=== PATIENT | male | born 1955 | race Caucasian/White ===

== ENCOUNTER 2019-05-26 20:08 | Inpatient (IN) | payer MEDICARE, OTHER ==
[~2019-05-26] VITALS: Ht 175.3 cm; Wt 90.7 kg
--- NOTE | 2019-05-26 20:29 | NUR ---
BIB [employer] C/O DEPRESSION, SI WITH PLAN TO OD BY TAKING 1 BOTTLE OF ASPIRIN. PT ALSO C/O BILATERAL KNEE PAIN 09/03. DENIES TRAUMA.PT UNABLE TO PROVIDE URINE SAMPLE AT THIS TIME. WILL F/U
[2019-05-26 20:34] LABS: BASOPHILS # (AUTO) 0.1 /CMM (0.0-0.2); BASOPHILS % (AUTO) 0.4 % (0.0-2.0); EOSINOPHILS % (AUTO) 0.1 % (0.0-6.0); HEMATOCRIT 44 % (39-51); HEMOGLOBIN 14.8 g/dL (13.5-17.5); LYMPHOCYTES # (AUTO) 1.8 /CMM (0.8-4.8); LYMPHOCYTES % (AUTO) 13.6 % (20.0-44.0); MEAN CORPUSCULAR HGB CONC 33 g/dl (31.0-36.0); MEAN CORPUSCULAR VOLUME 87 fL (80-96); MONOCYTES # (AUTO) 1.1 /CMM (0.1-1.30); MONOCYTES % (AUTO) 7.8 % (2.0-12.0); NEUTROPHILS # (AUTO) 10.6 /CMM (1.8-8.9); NEUTROPHILS % (AUTO) 78.1 % (43.0-81.0); PLATELET COUNT (AUTO) 316 /CMM (150-450); RED BLOOD CELL COUNT(AUTO) 5.08 MIL/uL (4.5-6.0); WHITE BLOOD COUNT (AUTO) 13.5 K/uL (4.3-11.0)
[2019-05-26 20:41] LABS: CALCIUM, SERUM 9.5 mg/dL (8.5-10.1); CARBON DIOXIDE 21 mmol/L (21-32); CHLORIDE 100 mmol/L (98-107); CREATININE 2.4 mg/dL (0.6-1.3); GLUCOSE 131 mg/dL (74-106); POTASSIUM 4.4 mmol/L (3.5-5.1); SODIUM SERUM 133 mmol/L (136-145); UREA NITROGEN, BLOOD 21 mg/dL (7-18)
[2019-05-26 20:48] LABS: ALANINE AMINOTRANSFERASE < 6 U/L (12-78); ALBUMIN 4.2 g/dL (3.4-5.0); ALCOHOL, BLOOD < 3 mg/dL (0-0); ALKALINE PHOSPHATASE 114 U/L (46-116); ASPARTATE AMINOTRANSFERASE 9 U/L (15-37); BILIRUBIN,DIRECT 0.2 mg/dL (0.0-0.2); BILIRUBIN,TOTAL 1.2 mg/dL (0.2-1.0); TOTAL PROTEIN, SERUM 7.8 g/dL (6.4-8.2)
[2019-05-26 20:49] LABS: ACETAMINOPHEN 0 ug/ml (10-30); SALICYLATE 0.6 mg/dL (2.8-20.0)
[2019-05-26 21:08] LABS: APPEARANCE,URINE Clear (CLEAR); BILIRUBIN,URINE Negative (NEGATIVE); BLOOD, URINE Negative Ery/uL (NEGATIVE); COLOR,URINE Yellow (YELLOW); KETONES,URINE Negative (NEGATIVE); LEUKOCYTE ESTERASE ,URINE Negative (NEGATIVE); NITRITE, URINE Negative (NEGATIVE); PH,URINE 7.5 (5.0-8.0); PROTEIN,URINE Negative (NEGATIVE); UGLUCOSE Negative (NEGATIVE); UROBILINOGEN,URINE 0.2 EU/dL (0.2)
--- NOTE | 2019-05-26 21:22 | NUR ---
PT REOPRTED HE'S NOT TAKING ANY MEDICATIONS AT HOME
--- NOTE | 2019-05-26 21:32 | NUR ---
REPORT GIVEN TO RICARDO AT GPS
--- NOTE | 2019-05-26 21:45 | NUR ---
PT WAS TRANSFERRED TO GPS IN STABLE CONDITION.
[2019-05-26] MEDS ORDERED: BLOOD SUGAR DIAGNOSTIC 1 EACH STRIP IN ONE (23:00)
[2019-05-26] MEDS ORDERED: ACETAMINOPHEN 325 MG TABLET PO PRN (23:00)
[2019-05-26] MEDS ORDERED: MAGNESIUM HYDROXIDE 30 ML UDC PO PRN (23:00)
[2019-05-26 23:03] VITALS: BP 103/71
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
[2019-05-27 06:07] LABS: BASOPHILS % (AUTO) 0.2 % (0.0-2.0); CALCIUM, SERUM 8.8 mg/dL (8.5-10.1); CREATININE 1.8 mg/dL (0.6-1.3); EOSINOPHILS % (AUTO) 0.6 % (0.0-6.0); HEMATOCRIT 41 % (39-51); HEMOGLOBIN 13.8 g/dL (13.5-17.5); LYMPHOCYTES # (AUTO) 1.7 /CMM (0.8-4.8); MEAN CORPUSCULAR HGB CONC 34 g/dl (31.0-36.0); MEAN CORPUSCULAR VOLUME 87 fL (80-96); MONOCYTES # (AUTO) 0.8 /CMM (0.1-1.30); MONOCYTES % (AUTO) 11.8 % (2.0-12.0); NEUTROPHILS # (AUTO) 4.6 /CMM (1.8-8.9); NEUTROPHILS % (AUTO) 63.4 % (43.0-81.0); PLATELET COUNT (AUTO) 234 /CMM (150-450); POTASSIUM 3.9 mmol/L (3.5-5.1); RED BLOOD CELL COUNT(AUTO) 4.69 MIL/uL (4.5-6.0); WHITE BLOOD COUNT (AUTO) 7.2 K/uL (4.3-11.0)
--- NOTE | 2019-05-27 07:30 | NUR ---
RN GPS NOTES PT AWAKE, ALERT AND ORIENTED, NO COMPLAINT OF PAIN, NOT IN DISTRESS, AMBULATES WITH A WALKER WITH STEADY GAIT, COOPERATIVE AND COMPLIANT WITH MEDS AND INTERVENTIONS, NEEDS ATTENDED.
[2019-05-27] MEDS ORDERED: TRAZ-182 PO (08:19)
[2019-05-27] MEDS ORDERED: GABA-532 PO (08:19)
[2019-05-27] MEDS ORDERED: PRAZ5CAP2 PO (08:19)
[2019-05-27] MEDS ORDERED: PANT40TA2 PO (08:19)
[2019-05-27] MEDS ORDERED: ASPI-1152 PO (08:19)
[2019-05-27] MEDS ORDERED: LISI-658 PO (08:19)
[2019-05-27] MEDS ORDERED: ESCI10TA PO (08:19)
[2019-05-27] MEDS ORDERED: QUET200T PO (08:19)
[2019-05-27] MEDS ORDERED: BENZ1TAB7 PO (08:19)
[2019-05-27] MEDS ORDERED: OLAN10TA3 PO (08:19)
[2019-05-27] MEDS: MAG HYDROX/AL HYDROX/SIMETH 30 ML UDC PO PRN ×3 (08:24→22:16)
--- NOTE | 2019-05-27 09:20 | NUR ---
WOUND CARE CONSULT: PT PRESENTS INDEPENDENT WITH BED MOBILITY AND CONTINENT. THICKENED TOENAILS AND PLANTAR FOOT CALLUS NOTED BUT NO WOUND CARE NEEDED AT THIS TIME. PT STATES HAD RECENT PODIATRY CARE. WILL SEE PRN. CURRENT SUNSHINE SCORE IS 21. Addendum: 05/27/19 at 0922 by ROSAMARIA ANTHONY WNDNU Amended: Links added.
[2019-05-27] MEDS: OLANZAPINE 2.5 MG TABLET PO SCH ×3 (11:36→17:17)
[2019-05-27] MEDS: LORAZEPAM 0.5 MG TABLET PO PRN ×2 (11:39→18:48)
[2019-05-27] MEDS: GABAPENTIN 100 MG CAPSULE PO SCH ×2 (12:36→17:17)
--- NOTE | 2019-05-27 12:46 | NUR ---
Initial Discharge Plan: Pt is currently homeless and does not have anyone to contact. Per pt, he would like to be placed in a facility. SW will work with the MD and the pt regarding appropriate discharge planning. SW will form a safe and proper discharge.
--- NOTE | 2019-05-27 14:47 | NUR ---
Individual Note: In lieu of group therapy due to COVID 19, SW spoke to the pt individually at bedside. Pt appeared to be confused and disorganized. Pt states that he has a difficult time processing loss. Pt stated that he has experienced a lot of loss and he appears to get depressed and suicidal when that happens. Pt stated that he is homeless and that is also one of his triggers. SW asked the pt to practice deep breathing and walking to assist with triggers.
[2019-05-27 16:00] VITALS: BP 125/83
--- NOTE | 2019-05-27 16:35 | NUR ---
RN GPS NOTES PT FOR TRANSFER TO [place] [address], BELONGINGS ACCOUNTED FOR, SKIN CHECK DONE, PT INFORMED, REPORT GIVEN TO BETH RN, TRANSPORTED PT WITH ALL BELONGINGS TO ROOM 204-1 VIA WHEELCHAIR, IN STABLE CONDITION.
--- NOTE | 2019-05-27 18:31 | NUR ---
RN GPS NOTES PT IN BED, RESTING, DENIES PAIN, NOT IN DISTRESS, COMPLIANT WITH MEDS AND INTERVENTIONS, TOLERATES CURRENT DIET, NO BEHAVIOR PROBLEM NOTED, NEEDS ATTENDED, PM MEDS GIVEN.
--- NOTE | 2019-05-27 18:31 | NUR ---
KINDLY DISREGARD ABOVE NOTE, IT IS FOR ANOTHER PATIENT.
--- NOTE | 2019-05-27 19:36 | NUR ---
GPS RN OPENING NOTE: RECEIVED PT. IN BED Addendum: 05/27/19 at 1947 by TAMMY ANNE RN GPS RN OPENING NOTE: RECEIVED PT. RESTING IN BED. A/O 2-3, CALM, COOPERATIVE, AMBULATORY W/ WALKER. DENIES SI/HI AT THIS TIME, NEEDS ATTENDED. BED IN LOCKED AND LOW POSITION. BED ALARM ON. WILL CONTINUE TO MONITOR FOR SAFETY, MOOD AND BEHAVIOR.
[2019-05-27 20:38] VITALS: BP 129/80
[2019-05-27] MEDS ORDERED: DIVALPROEX SODIUM 500 MG TABLET.DR PO SCH (22:00)
--- NOTE | 2019-05-27 22:17 | NUR ---
GPS RN NOTE: INDIGESTION PT. C/O OF INDIGESTION AND REQUESTED MAALOX. ADMINISTERED MAALOX SUSPENSION 30 ML PO PRN REQUESTED. WILL CONTINUE TO MONITOR FOR SAFETY AND BEHAVIOR
[2019-05-28 08:00] VITALS: BP 106/68
[2019-05-28] MEDS: OLANZAPINE 2.5 MG TABLET PO SCH ×3 (08:12→16:28)
[2019-05-28] MEDS: GABAPENTIN 100 MG CAPSULE PO SCH ×3 (08:12→16:28)
[2019-05-28] MEDS: PANTOPRAZOLE 40 MG TABLET.DR PO SCH (08:13)
[2019-05-28] MEDS: ASPIRIN EC 81 MG TABLET.DR PO SCH (08:15)
[2019-05-28] MEDS ORDERED: LISINOPRIL (20MG) 20 MG TABLET PO SCH (09:00)
--- NOTE | 2019-05-28 11:42 | NUR ---
Individual Intervention with MD and pt: SW and the pts MD, Dr. Edge, met with the pt at bedside. Pt was asked about his thoughts and if he was having any sexual thoughts. Pt stated that he has general sexual thoughts towards women and children but the pt stated that there are no specific individuals. Pt stated that he has been going to [employer] and he stated that he knows that if he was ever to act on his thoughts that he would go to the authorities.
[2019-05-28 16:00] VITALS: BP 122/78
[2019-05-28 20:00] VITALS: BP 109/66
[2019-05-28] MEDS: PRAZOSIN HCL 1 MG CAPSULE PO SCH (21:21)
[2019-05-28] MEDS ORDERED: DIVALPROEX SODIUM 250 MG TABLET.DR PO SCH (22:00)
[2019-05-28] MEDS: LORAZEPAM 0.5 MG TABLET PO PRN (23:05)
--- NOTE | 2019-05-28 23:07 | NUR ---
RN NOTES: ANXIETY PT. C/O FEELING ANXIOUS ,RESTLESS, ATIVAN 0.5 MG PO PRN GIVEN, PER PT. REQUEST, WILL CONTINUE TO MONITOR.
--- NOTE | 2019-05-28 23:45 | NUR ---
RN NOTES : COLLECT URINE SPECIMEN AND SEND OUT TO THE LAB.
[2019-05-28 23:46] LABS: APPEARANCE,URINE CLEAR (CLEAR); BILIRUBIN,URINE NEGATIVE (NEGATIVE); BLOOD, URINE NEGATIVE Ery/uL (NEGATIVE); COLOR,URINE YELLOW (YELLOW); KETONES,URINE NEGATIVE (NEGATIVE); LEUKOCYTE ESTERASE ,URINE NEGATIVE (NEGATIVE); NITRITE, URINE NEGATIVE (NEGATIVE); PH,URINE 7.5 (5.0-8.0); PROTEIN,URINE NEGATIVE (NEGATIVE); UGLUCOSE NEGATIVE (NEGATIVE); UROBILINOGEN,URINE 0.2 EU/dL (0.2)
[2019-05-28 23:52] LABS: CREATININE, URINE 63.4 MG/DL (30.0-125.0); URINE SODIUM, RANDOM 42 mmol/l (40-220)
[2019-05-28 23:55] LABS: URINE TOTAL PROTEIN < 6.0 mg/dL (0-11.9)
[2019-05-29 00:07] LABS: EOSINOPHIL,URINE None Seen
[2019-05-29] MEDS: TEMAZEPAM 7.5 MG CAPSULE PO PRN ×2 (02:02→22:21)
--- NOTE | 2019-05-29 02:02 | NUR ---
RN NOTES : INSOMNIA PT. C/O UNABLE TO SLEEP RESTORIL 7.5 MG PO PRN GIVEN PER PT. REQUEST , WILL CONTINUE TO MONITOR.
[2019-05-29 06:53] LABS: BASOPHILS % (AUTO) 0.4 % (0.0-2.0); EOSINOPHILS % (AUTO) 1.3 % (0.0-6.0); HEMATOCRIT 43 % (39-51); HEMOGLOBIN 13.9 g/dL (13.5-17.5); LYMPHOCYTES # (AUTO) 1.4 /CMM (0.8-4.8); LYMPHOCYTES % (AUTO) 25.8 % (20.0-44.0); MEAN CORPUSCULAR HGB CONC 33 g/dl (31.0-36.0); MEAN CORPUSCULAR VOLUME 89 fL (80-96); MONOCYTES # (AUTO) 0.4 /CMM (0.1-1.30); MONOCYTES % (AUTO) 6.9 % (2.0-12.0); NEUTROPHILS # (AUTO) 3.5 /CMM (1.8-8.9); NEUTROPHILS % (AUTO) 65.6 % (43.0-81.0); PLATELET COUNT (AUTO) 233 /CMM (150-450); RED BLOOD CELL COUNT(AUTO) 4.83 MIL/uL (4.5-6.0); WHITE BLOOD COUNT (AUTO) 5.4 K/uL (4.3-11.0)
[2019-05-29 07:16] LABS: BILIRUBIN,TOTAL 0.3 mg/dL (0.2-1.0); CALCIUM, SERUM 8.7 mg/dL (8.5-10.1); CREATININE 1.5 mg/dL (0.6-1.3); PHOSPHORUS 3.4 mg/dL (2.5-4.9); POTASSIUM 4.1 mmol/L (3.5-5.1); TOTAL PROTEIN, SERUM 6.4 g/dL (6.4-8.2)
[2019-05-29 08:00] VITALS: BP_SYST 134; BP_SYST 135; BP_DIAS 107; BP_DIAS 98
[2019-05-29] MEDS: OLANZAPINE 2.5 MG TABLET PO SCH ×3 (09:33→17:05)
[2019-05-29] MEDS: LORAZEPAM 0.5 MG TABLET PO PRN ×2 (09:33→17:06)
[2019-05-29] MEDS: GABAPENTIN 100 MG CAPSULE PO SCH ×3 (09:33→17:05)
--- NOTE | 2019-05-29 09:33 | NUR ---
RN NOTES ADMINISTERED ATIVAN 0.5 MG PO PRN FOR ANXIETY PER PATIENT REQUEST, V/S TAKEN BP- 134/08, P-85,, R-20. PATIENT DELUSIONAL, AMBULATORY SELF CARE USING WALKER. SAFETY PRECAUTION MAINTAINED ALL THE TIME.
[2019-05-29] MEDS: ASPIRIN EC 81 MG TABLET.DR PO SCH (09:34)
[2019-05-29] MEDS: PANTOPRAZOLE 40 MG TABLET.DR PO SCH (09:34)
[2019-05-29 16:00] VITALS: BP 137/90
--- NOTE | 2019-05-29 17:06 | NUR ---
rn notes administered Ativan 0.5 mg po prn for anxiety per patient request, v/s taken bp-137/90, p78.
[2019-05-29 20:01] VITALS: BP 137/86
[2019-05-29] MEDS: DIVALPROEX SODIUM 500 MG TABLET.DR PO SCH (21:06)
[2019-05-29] MEDS: PRAZOSIN HCL 1 MG CAPSULE PO SCH (21:06)
--- NOTE | 2019-05-29 21:24 | NUR ---
GPS-RN NOTE: RIGHT LOWER LEG PAIN PATIENT C/O PAIN ON RIGHT LOWER LEG ON A PAIN SCALE OF 3/10. ADMINISTERED ACETAMINOPHEN 650MG PO ORDERED. WILL CONTINUE TO MONITOR FOR THE EFFECTIVENESS OF MEDICATION.
--- NOTE | 2019-05-29 22:22 | NUR ---
GPS-RN NOTE: INSOMNIA PATIENT C/O INABILITY TO SLEEP. ADMINISTERED RESTORIL 7.5MG PO ORDERED. WILL CONTINUE TO MONITOR.
[2019-05-30] MEDS: LORAZEPAM 0.5 MG TABLET PO PRN (01:18)
--- NOTE | 2019-05-30 01:19 | NUR ---
GPS-RN NOTE: ANXIETY PATIENT C/O FEELING ANXIOUS, REQUESTING FOR ATIVAN. ADMINISTERED ATIVAN 0.5MG PO ORDERED. WILL CONTINUE TO MONITOR FOR PT'S SAFETY.
[2019-05-30 06:29] LABS: BASOPHILS % (AUTO) 0.4 % (0.0-2.0); EOSINOPHILS % (AUTO) 1.5 % (0.0-6.0); HEMATOCRIT 40 % (39-51); HEMOGLOBIN 13.6 g/dL (13.5-17.5); LYMPHOCYTES # (AUTO) 1.6 /CMM (0.8-4.8); LYMPHOCYTES % (AUTO) 33.1 % (20.0-44.0); MEAN CORPUSCULAR HGB CONC 34 g/dl (31.0-36.0); MEAN CORPUSCULAR VOLUME 88 fL (80-96); MONOCYTES # (AUTO) 0.4 /CMM (0.1-1.30); MONOCYTES % (AUTO) 7.9 % (2.0-12.0); NEUTROPHILS # (AUTO) 2.8 /CMM (1.8-8.9); NEUTROPHILS % (AUTO) 57.1 % (43.0-81.0); PLATELET COUNT (AUTO) 228 /CMM (150-450); RED BLOOD CELL COUNT(AUTO) 4.59 MIL/uL (4.5-6.0); WHITE BLOOD COUNT (AUTO) 4.9 K/uL (4.3-11.0)
[2019-05-30 06:37] LABS: ALBUMIN 3.1 g/dL (3.4-5.0); BILIRUBIN,TOTAL 0.2 mg/dL (0.2-1.0); CALCIUM, SERUM 8.7 mg/dL (8.5-10.1); CREATININE 1.5 mg/dL (0.6-1.3); POTASSIUM 3.8 mmol/L (3.5-5.1); TOTAL PROTEIN, SERUM 6.4 g/dL (6.4-8.2)
[2019-05-30 08:00] VITALS: BP 139/74
[2019-05-30] MEDS: OLANZAPINE 2.5 MG TABLET PO SCH ×3 (08:05→16:17)
[2019-05-30] MEDS: ASPIRIN EC 81 MG TABLET.DR PO SCH (08:05)
[2019-05-30] MEDS: PANTOPRAZOLE 40 MG TABLET.DR PO SCH (08:06)
[2019-05-30] MEDS: GABAPENTIN 100 MG CAPSULE PO SCH ×3 (08:06→16:17)
[2019-05-30 09:06] LABS: PTH, INTACT 25 pg/mL (15-65)
[2019-05-30 16:00] VITALS: BP 141/94
[2019-05-30 20:19] VITALS: BP 146/85
[2019-05-30] MEDS: DIVALPROEX SODIUM 500 MG TABLET.DR PO SCH (21:05)
[2019-05-30] MEDS: PRAZOSIN HCL 1 MG CAPSULE PO SCH (21:05)
[2019-05-31] MEDS: MAG HYDROX/AL HYDROX/SIMETH 30 ML UDC PO PRN (01:30)
--- NOTE | 2019-05-31 01:31 | NUR ---
GPS RN NOTE: INDIGESTION PT. C/O OF INDIGESTION AND REQUESTED MAALOX. ADMINISTERED MAALOX SUSP 30 ML PO PRN ORDERED. WILL CONTINUE TO MONITOR FOR SAFETY AND BEHAVIOR
[2019-05-31] MEDS: PANTOPRAZOLE 40 MG TABLET.DR PO SCH (08:11)
[2019-05-31] MEDS: ASPIRIN EC 81 MG TABLET.DR PO SCH (08:40)
[2019-05-31] MEDS: OLANZAPINE 2.5 MG TABLET PO SCH ×3 (08:40→16:48)
[2019-05-31] MEDS: GABAPENTIN 100 MG CAPSULE PO SCH ×3 (08:40→16:48)
[2019-05-31] MEDS: LORAZEPAM 1 MG TABLET PO PRN (16:23)
--- NOTE | 2019-05-31 16:25 | NUR ---
RN NOTE: PT WITH INCREASING AGITATION AND ANXIETY. PT POSTURING AND VERBALLY THREATENING STAFF. BELIEVES STAFF ARE TALKING ABOUT HIM IN [facility]. PT MEDICATED WITH PO ATIVAN.
[2019-05-31 20:00] VITALS: BP 123/80
[2019-05-31] MEDS: DIVALPROEX SODIUM 500 MG TABLET.DR PO SCH (21:16)
[2019-05-31] MEDS: PRAZOSIN HCL 1 MG CAPSULE PO SCH (21:16)
--- NOTE | 2019-05-31 21:30 | NUR ---
RN NOTES: PT. REFUSED WEEKLY SKIN REASSESSMENT AND PHOTO TO BE TAKEN , RISKS AND BENEFITS EXPLINED , BUT PT. STILL REFUSED , PER PT. I DONT WATS TO CHECK , MY SKIN IS FINE, WILL CONTINUITY WITH CARE.
[2019-05-31] MEDS: TEMAZEPAM 7.5 MG CAPSULE PO PRN (23:46)
--- NOTE | 2019-05-31 23:48 | NUR ---
RN NOTES : INSOMNIA PT. C/O UNABLE TO SLEEP PRN RESTORIL 7.5 MG PO ,GIVEN PER PT. REQUEST , WILL CONTINUE TO MONITOR.
[2019-06-01] MEDS: MAG HYDROX/AL HYDROX/SIMETH 30 ML UDC PO PRN (02:03)
[2019-06-01] MEDS: PANTOPRAZOLE 40 MG TABLET.DR PO SCH (07:30)
[2019-06-01 08:09] LABS: *SPE A/G RATIO 1.1 (0.7-1.7); *SPE ALBUMIN 3.1 g/dL (2.9-4.4); *SPE ALPHA-1-GLOBULIN 0.2 g/dL (0.0-0.4); *SPE ALPHA-2-GLOBULIN 0.8 g/dL (0.4-1.0); *SPE GLOBULIN, TOTAL 2.8 g/dL (2.2-3.9); *SPE M-SPIKE Not Observed g/dL (Not Observed); *SPEGAMMA GLOBULIN 0.8 g/dL (0.4-1.8)
[2019-06-01] MEDS: ASPIRIN EC 81 MG TABLET.DR PO SCH (08:41)
[2019-06-01] MEDS: OLANZAPINE 2.5 MG TABLET PO SCH ×2 (08:41→13:22)
[2019-06-01] MEDS: GABAPENTIN 100 MG CAPSULE PO SCH ×3 (08:41→17:13)
[2019-06-01 10:39] VITALS: BP 149/97
--- NOTE | 2019-06-01 12:13 | NUR ---
SNF Referral: HERB faxed a referral to [facility] with attn to Admissions to fax number: [phone].
--- NOTE | 2019-06-01 16:02 | NUR ---
Individual Note: In lieu of group therapy due to COVID 19, SW met with the pt at bedside to discuss his discharge plan individually. Pt was informed that the plan is going to be to discharge the pt to a nursing facility. Pt stated that he has concerns and stated, "The devil has been inside of me and has been steering me away from the [facility]. You all just want to know everything about me." SW stated that the goal is to place the pt in a safe discharge location and the pt agreed and thanked the SW.
[2019-06-01 16:31] VITALS: BP 123/91
[2019-06-01] MEDS: OLANZAPINE 10 MG TABLET PO SCH (20:28)
[2019-06-01 21:01] VITALS: BP 123/78
[2019-06-01] MEDS: PRAZOSIN HCL 1 MG CAPSULE PO SCH (21:49)
[2019-06-01] MEDS ORDERED: DIVALPROEX SODIUM 500 MG TABLET.DR PO SCH (22:00)
[2019-06-02 07:27] LABS: BASOPHILS % (AUTO) 0.2 % (0.0-2.0); EOSINOPHILS % (AUTO) 1.1 % (0.0-6.0); HEMATOCRIT 43 % (39-51); HEMOGLOBIN 14.3 g/dL (13.5-17.5); LYMPHOCYTES # (AUTO) 1.8 /CMM (0.8-4.8); LYMPHOCYTES % (AUTO) 28.3 % (20.0-44.0); MEAN CORPUSCULAR HGB CONC 33 g/dl (31.0-36.0); MEAN CORPUSCULAR VOLUME 88 fL (80-96); MONOCYTES # (AUTO) 0.5 /CMM (0.1-1.30); MONOCYTES % (AUTO) 7.3 % (2.0-12.0); NEUTROPHILS # (AUTO) 4.1 /CMM (1.8-8.9); NEUTROPHILS % (AUTO) 63.1 % (43.0-81.0); PLATELET COUNT (AUTO) 219 /CMM (150-450); RED BLOOD CELL COUNT(AUTO) 4.93 MIL/uL (4.5-6.0); WHITE BLOOD COUNT (AUTO) 6.5 K/uL (4.3-11.0)
[2019-06-02 07:42] LABS: ALBUMIN 3.1 g/dL (3.4-5.0); BILIRUBIN,TOTAL 0.4 mg/dL (0.2-1.0); CALCIUM, SERUM 8.8 mg/dL (8.5-10.1); CREATININE 1.4 mg/dL (0.6-1.3); POTASSIUM 4.1 mmol/L (3.5-5.1); TOTAL PROTEIN, SERUM 6.6 g/dL (6.4-8.2)
[2019-06-02] MEDS: PANTOPRAZOLE 40 MG TABLET.DR PO SCH (08:37)
[2019-06-02] MEDS: OLANZAPINE 2.5 MG TABLET PO SCH ×2 (08:37→12:36)
[2019-06-02] MEDS: GABAPENTIN 100 MG CAPSULE PO SCH ×3 (08:37→16:54)
[2019-06-02] MEDS: ASPIRIN EC 81 MG TABLET.DR PO SCH (08:38)
[2019-06-02 09:30] VITALS: BP 119/71
--- NOTE | 2019-06-02 11:41 | NUR ---
SNF Contact: Tamra ([phone]), admissions clerk from [facility], contacted the SW and stated that the pt was not accepted to their facility because he is not appropriate for their facility.
--- NOTE | 2019-06-02 11:42 | NUR ---
SNF Referral: HERB faxed a referral to [facility] with attn to Ed and GIANFRANCO to the fax number: [phone].
--- NOTE | 2019-06-02 13:54 | NUR ---
Individual Note: In lieu of group therapy due to COVID 19, HERB met with the pt at bedside to discuss his discharge plan individually. HERB informed the pt that he was not accepted to a facility and that she will attempt to find alternatives. He stated that as long as the place is safe then he is okay.
[2019-06-02 15:59] VITALS: BP 108/77
[2019-06-02] MEDS: LORAZEPAM 1 MG TABLET PO PRN (19:34)
[2019-06-02 20:00] VITALS: BP 145/69
[2019-06-02] MEDS: OLANZAPINE 10 MG TABLET PO SCH (20:23)
[2019-06-02] MEDS: PRAZOSIN HCL 1 MG CAPSULE PO SCH (21:22)
[2019-06-02] MEDS ORDERED: DIVALPROEX SODIUM 500 MG TABLET.DR PO SCH (22:00)
[2019-06-03] MEDS: TEMAZEPAM 7.5 MG CAPSULE PO PRN (00:10)
[2019-06-03] MEDS: PANTOPRAZOLE 40 MG TABLET.DR PO SCH (07:27)
[2019-06-03] MEDS: OLANZAPINE 2.5 MG TABLET PO SCH ×2 (07:27→12:41)
[2019-06-03 08:00] VITALS: BP 141/95
[2019-06-03] MEDS: ASPIRIN EC 81 MG TABLET.DR PO SCH (08:49)
[2019-06-03] MEDS: GABAPENTIN 100 MG CAPSULE PO SCH ×3 (08:49→17:00)
--- NOTE | 2019-06-03 09:00 | NUR ---
RN NOTE- RECEIVED PT IN HIS ROOM, RESTING IN BED COMFORTABLY, A&OX2-3, CALM, COOPERATIVE, PLEASANT, GUARDED, ISOLATIVE, FLAT AFFECT, DEPRESSED MOOD, KEEPS TO SELF, MED COMPLIANT, DENIES SI/HI/AVH AT THIS TIME. NO S/S OF ANY DISTRESS NOTED. NO C/O PAIN OR ANY DISCOMFORT. FALL PRECAUTIONS IMPLEMENTED. ALL NEEDS ATTENDED AND ANTICIPATED. WILL CONTINUE TO MONITOR Q15 MINS FOR SAFETY AND BEHAVIOR.
--- NOTE | 2019-06-03 10:21 | NUR ---
SNF Referral: HERB faxed a referral to [facility] with attn to [place] to the fax number: [phone].
--- NOTE | 2019-06-03 10:25 | NUR ---
SNF Contact: Cristel ([phone]) community health education coordinator from [facility] contacted the SW and asked for additional information. HERB faxed over additional notes to the fax number: [phone].
--- NOTE | 2019-06-03 14:07 | NUR ---
GPS/RN-NOTES RECEIVED T.O DISCHARGE ORDER FROM DR. KNIGHT COVERING FOR DR. MIN TO DISCONTINUE HOLD AND CONTINUE ALL MEDICATIONS. NOTED AND CARRIED OUT.
--- NOTE | 2019-06-03 14:41 | NUR ---
Discharge Note: Pt was discharged to [facility] ([facility] located at [address] [place] [address]; ([phone]). Pt was transported via [facility] (Trip #[id number]) at 5PM. Pt will be in Rm 34C. Pt does not have family to contact. Upon discharge, the pt appeared to be in a dysphoric mood and presented with a distressed affect. Pt appeared to be alert and oriented x4 (time, place, self and situation). Pt appeared to be ambulatory with a steady gait. Pt denied both suicidal and homicidal ideation as well as auditory and visual hallucinations. Pt was provided with homeless resources such as shelters, food lerma, hot meals, showers, smoking cessation referrals, mental and physical health clinics and substance abuse referrals. Pt signed the homeless waiver. Pt will be under the care of her psychiatrist, Dr. More, located at [address], [place] [address]; and oil well service operator helper, Dr. Gray, located at [address], [place] [address]; .
--- NOTE | 2019-06-03 17:10 | NUR ---
FINISHING RANGE OPERATOR NOTE- PT D/C TO [facility] VIA GURNEY AND AMBULANCE . DC INSTRUCTIONS REVIEWED W PT AND AMBULANCE STAFF, VERBALIZED UNDERSTANDING. PT ALERT ORIENTED CALM DIRECTABLE. VS STABLE. 141/90, HR-88, RR-18, T-98.0, SATURATION 98% RA. DENIES SI HI AH VH AT PRESENT. VALUABLES RETURNED TO PT AND SIGNED FOR. ID [id number] REMOVED. PT REFUSED SKI CHECK AND PHOTOGRAPHS. ESCORTED OFF UNIT BY STAFF Addendum: 06/03/19 at 1721 by JOLYNN OCAMPO RN RN NOTE- 1700 DOSE NEURONTIN NOT GIVEN . PT DC.
== END 2019-06-03 17:10 | DRG 885 ==
LOC: ER 20:14 → GPS 21:22
PROVIDERS: ADMIT Psychiatry & Neurology Psychosomatic Medicine; ATTEND Internal Medicine
DX: F25.0 Schizoaffective disorder, bipolar type (principal); N17.0 Acute kidney failure with tubular necrosis; E44.1 Mild protein-calorie malnutrition; R45.851 Suicidal ideations; F12.90 Cannabis use, unspecified, uncomplicated; E11.9 Type 2 diabetes mellitus without complications; F31.9 Bipolar disorder, unspecified; I10 Essential (primary) hypertension; F43.10 Post-traumatic stress disorder, unspecified; G62.9 Polyneuropathy, unspecified; N40.0 Benign prostatic hyperplasia without lower urinary tract symptoms; Z91.5 Personal history of self-harm; R53.1 Weakness; F42.9 Obsessive-compulsive disorder, unspecified; F19.90 Other psychoactive substance use, unspecified, uncomplicated; Z68.29 Body mass index [BMI] 29.0-29.9, adult; Z59.0 Homelessness
CPT/HCPCS: 36415; 70450-TC; 76770-TC; 80048-TC; 80053-TC; 80061-TC; 80076-TC; 80164-TC; 80305; 81000-TC; 82550-TC; 82570-TC; 82962-TC; 83735-TC; 83970; 84100-TC; 84155; 84155-TC; 84165; 84300-TC; 85025-TC; 87081-TC; G0480

== ENCOUNTER 2022-01-27 17:43 | Inpatient (IN) | payer MEDICARE, OTHER ==
[~2022-01-27] VITALS: Ht 180.3 cm; Wt 72.6 kg
[~2022-01-27 17:43] MED LIST: ASPI-1420 PO; GABA-532 PO; LISI-658 PO; PANT40TA2 PO; PRAZ5CAP2 PO
--- NOTE | 2022-01-27 19:15 | NUR ---
PATIENT BIB CRISIS TEAM FOR SUICIDAL IDEATION. ON 5150 HOLD AT 1515. PATIENT IS A/O X 4, RR EVEN AND UNLABORED NO SOB NOTED. PATIENT TAKEN TO ER BED 15, PLACED IN HOPSITAL GOWN, BELONGINGS TAKEN. SITTER AT BEDSIDE. VSS. PATIENT IS AFEBRILE.
[2022-01-27 19:39] LABS: BILIRUBIN,URINE NEGATIVE (NEGATIVE); COLOR,URINE YELLOW (YELLOW); LEUKOCYTE ESTERASE ,URINE NEGATIVE (NEGATIVE); NITRITE, URINE NEGATIVE (NEGATIVE); PROTEIN,URINE NEGATIVE (NEGATIVE); UGLUCOSE NEGATIVE (NEGATIVE); UROBILINOGEN,URINE 0.2 EU/dL (0.2)
--- NOTE | 2022-01-27 19:51 | NUR ---
CHEMICAL LABORATORY TESTER AT PT'S BEDSIDE. COVID ANTIGEN SWAB COLLECTED AND SENT TO LAB
[2022-01-27 20:07] LABS: BASOPHILS % (AUTO) 0.4 % (0.0-2.0); EOSINOPHILS % (AUTO) 1.7 % (0.0-6.0); HEMATOCRIT 43 % (39-51); HEMOGLOBIN 14.7 g/dL (13.5-17.5); LYMPHOCYTES # (AUTO) 1.8 K/uL (0.8-4.8); MEAN CORPUSCULAR HGB CONC 34 g/dl (31.0-36.0); MEAN CORPUSCULAR VOLUME 90 fL (80-96); MONOCYTES # (AUTO) 0.5 K/uL (0.1-1.30); MONOCYTES % (AUTO) 8.8 % (2.0-12.0); NEUTROPHILS # (AUTO) 2.9 K/uL (1.8-8.9); NEUTROPHILS % (AUTO) 55.1 % (43.0-81.0); PLATELET COUNT (AUTO) 232 K/uL (150-450); RED BLOOD CELL COUNT(AUTO) 4.79 MIL/uL (4.5-6.0); WHITE BLOOD COUNT (AUTO) 5.3 K/uL (4.3-11.0)
[2022-01-27 20:17] LABS: CALCIUM, SERUM 9.1 mg/dL (8.5-10.1); CARBON DIOXIDE 26 mmol/L (21-32); CHLORIDE 104 mmol/L (98-107); CREATININE 1.5 mg/dL (0.6-1.3); GLUCOSE 79 mg/dL (74-106); POTASSIUM 3.4 mmol/L (3.5-5.1); SODIUM SERUM 138 mmol/L (136-145); UREA NITROGEN, BLOOD 21 mg/dL (7-18)
[2022-01-27 20:22] LABS: ALANINE AMINOTRANSFERASE 20 U/L (12-78); ALBUMIN 4.1 g/dL (3.4-5.0); ALCOHOL, BLOOD < 3 mg/dL (0-0); ALKALINE PHOSPHATASE 116 U/L (46-116); ASPARTATE AMINOTRANSFERASE 12 U/L (15-37); BILIRUBIN,DIRECT 0.2 mg/dL (0.0-0.2); BILIRUBIN,TOTAL 0.6 mg/dL (0.2-1.0); TOTAL PROTEIN, SERUM 7.6 g/dL (6.4-8.2)
[2022-01-27 20:28] LABS: ACETAMINOPHEN < 10 ug/ml (10-30)
--- NOTE | 2022-01-27 20:44 | NUR ---
GPS ROOM 215
--- NOTE | 2022-01-27 21:00 | NUR ---
REPORT GIVEN TO MARCIA VALDEZ
[2022-01-27 21:45] VITALS: BP 123/90
--- NOTE | 2022-01-27 21:45 | NUR ---
GPS ADMISSION NOTE, RECEIVED PATIENT FROM [facility] PATIENT ARRIVED ON THIS UNIT AT 2145 VIA STRETCHER WITH 1 MEMORY CARE PROGRAM RESIDENT ESCORT. PATIENT ADMITTED ON A 5150 HOLD FOR DTS. PER HOLD PATIENT WAS VERBALIZING SUICIDAL IDEATIONS. PATIENT STATED, " PLEASE HELP ME, THE MOLESTER IN MY HEAD IS TELLING ME TO MOLEST KIDS OR TO KILL MYSELF. I'D RATHER THAN MOLEST KIDS. I WILL KILL MYSELF TODAY IF I DON'T GET THE HELP I NEED. I'M GOING TO RUN INTO TRAFFIC ". PATIENT WAS UNABLE TO CONTRACT FOR SAFETY AT THAT TIME. THE 5150 WAS REVIEWED AND THE DOCUMENTATION IN THE 5150 HOLD APPEARS TO REFLECT THE PRESENTATION OF THE PATIENT. UPON FACE TO FACE ASSESSMENT PATIENT IS NOTED TO BEING HYPERVERBAL, DISHEVELED, DISORGANIZED, DEPRESSED, COOPERATIVE, HAVING VISUAL HALLUCINATIONS, AND NEEDS REDIRECTION. PATIENT IS CURRENTLY LYING IN BED AWAKE, HAS NO S/S OR COMPLAINTS OF PAIN. PATIENT IS DISPLAYING NO S/S OF APPARENT DISTRESS. PATIENT BREATHING IS UNLABORED WITH EQUAL RISE AND FALL OF THE CHEST. PATIENT IS ALERT AND ORIENTATED X 3 ON ROOM AIR. PATIENT ASSISTED WITH TURING AND REPOSITIONING Q2HR AND PRN FOR COMFORT AND CIRCULATION. PATIENT HAS NO NEEDS AT THIS TIME. PATIENT DENIES SUICIDE IDEATIONS AND HOMICIDAL IDEATIONS AT THIS TIME. PATIENT REFUSED TO SIGNS ANY PAPER WORK. PATIENT ADVISED OF HIS HOLD AND PATIENT RIGHTS BOOKLET GIVEN. PATIENT IS UNDER THE PSYCHIATRIC CARE OF DR. STAFFORD AND THE MEDICAL CARE OF DR ISLAS. PATIENT BELONGINGS WERE INVENTORIED AND CHECKED FOR CONTRABAND. ALL CONTRABAND REMOVED AND STORED IN PATIENT HALLWAY LOCKER. PATIENT ADVANCED DIRECTIVES PREFERENCE, IMMUNIZATIONS QUESTIONER, NECESSARY PAPERWORK COMPLETED. PATIENT SKIN ASSESSMENT COMPLETED. PATIENT ORIENTATED TO ROOM, FLOOR, AND STAFF WITH ALL QUESTIONS ANSWERED. PATIENT EDUCATED ON THE USE OF THE CALL LIGHT. PATIENT BED SIDE RAILS ARE UP X 2 FOR SAFETY. PATIENT BED IS LOCKED, LOW AND I WILL CONTINUE TO MONITOR THIS PATIENT Q 15 MIN WITH THE HELP OF STAFF TO MAINTAIN SAFETY.
[2022-01-27] MEDS ORDERED: ACETAMINOPHEN 325 MG TABLET PO PRN (22:30)
[2022-01-27] MEDS ORDERED: MAGNESIUM HYDROXIDE 30 ML UDC PO PRN (22:30)
[2022-01-27] MEDS ORDERED: DOCU-141 PO (22:33)
[2022-01-27] MEDS ORDERED: ATOR20TA PO (22:34)
[2022-01-27] MEDS ORDERED: LACT10SO3 PO (22:36)
[2022-01-27] MEDS ORDERED: GEMF600T PO (22:37)
[2022-01-27] MEDS ORDERED: AMLO5TAB4 PO (22:38)
[2022-01-27] MEDS ORDERED: RISP1TAB7 PO (22:39)
[2022-01-27] MEDS ORDERED: QUET200T PO (22:40)
[2022-01-27] MEDS ORDERED: BUPR100T6 PO (22:41)
[2022-01-27] MEDS ORDERED: HALO10TA13 PO (22:42)
[2022-01-27] MEDS ORDERED: OMEG1CAP PO (22:43)
[2022-01-27] MEDS ORDERED: BLOOD SUGAR DIAGNOSTIC 1 EACH STRIP IN ONE (23:00)
[2022-01-27] MEDS: TEMAZEPAM 7.5 MG CAPSULE PO PRN (23:03)
--- NOTE | 2022-01-27 23:03 | NUR ---
GPS RN NOTE, PATIENT HAS A COMPLAINT OF NOT BEING ABLE TO SLEEP AND IS REQUESTING RESTORIL AT THIS TIME. PATIENT VITAL SIGNS ARE STABLE. GAVE RESTORIL 7.5MG PO HS PRN ORDERED. WILL REASSESS FOR INSOMNIA AND I WILL CONTINUE TO MONITOR THIS PATIENT WITH THE HELP OF STAFF.
[2022-01-27] MEDS ORDERED: POTASSIUM CHLORIDE 20 MEQ TAB.PRT.SR PO ONE (23:45)
--- NOTE | 2022-01-27 23:45 | NUR ---
GPS RN NOTE, PATIENT POTASSIUM LEVEL IS 3.4 AND PATIENT NEEDS A MEDICATION RECONCILIATION. PAGED [facility] AND INFORMED ALLISON ISLAS NP OF MY FINDINGS. ALLISON ISLAS NP ORDERED K-DUR 20MEQ PO ONCE AND STATED TO ENDORSE TO A.M. SHIFT NURSE TO ASK ROUNDING MEDICAL DOCTOR TO HAVE PATIENT'S MEDICATIONS RECONCILED. ALL ORDERS NOTED AND CARRIED OUT. WILL ENDORSE TO A.M. SHIFT NURSE THAT PATIENT MEDICATIONS NEED TO RECONCILED. GAVE K-DUR 20MEQ PO ONCE ORDERED. WILL CONTINUE TO MONITOR THIS PATIENT WITH THE HELP OF STAFF.
[2022-01-28 08:00] VITALS: BP 113/74
[2022-01-28] MEDS ORDERED: risperiDONE 1 MG TABLET PO SCH (09:30)
[2022-01-28] MEDS: QUETIAPINE FUMARATE 100 MG TABLET PO SCH ×2 (10:26→16:50)
[2022-01-28] MEDS: risperiDONE 1 MG TABLET PO SCH ×2 (11:16→16:50)
[2022-01-28] MEDS: buPROPion SR 100 MG TABLET.ER PO SCH ×2 (12:11→21:31)
--- NOTE | 2022-01-28 15:36 | NUR ---
RN-CO: NOTIFIED Wendy ISLAS NP TO RECONCILE HOME MEDS.
--- NOTE | 2022-01-28 15:43 | NUR ---
RN-CO: DR WHITE WAS REQUESTED TO RECONCILE HOME MEDS. " I WILL DO IT LATER."
[2022-01-28 16:00] VITALS: BP 111/77
--- NOTE | 2022-01-28 18:28 | NUR ---
NURSE NOTE: PT MED COMPLIANT THROUGHOUT SHIFT. PER PT STILL HEARING VOICES, BUT NOT BAD. "ABLE TO SUBSIDE BY THINKING OF GOD." PT IN STABLE COND. WILL CONT PLAN OF CARE.
[2022-01-28 20:37] VITALS: BP 103/66
[2022-01-28] MEDS ORDERED: MIRTAZAPINE 15 MG TABLET PO SCH (22:00)
[2022-01-29 07:30] LABS: BASOPHILS % (AUTO) 0.4 % (0.0-2.0); EOSINOPHILS % (AUTO) 2.5 % (0.0-6.0); HEMATOCRIT 41 % (39-51); LYMPHOCYTES # (AUTO) 1.2 K/uL (0.8-4.8); LYMPHOCYTES % (AUTO) 28.8 % (20.0-44.0); MEAN CORPUSCULAR HGB CONC 34 g/dl (31.0-36.0); MEAN CORPUSCULAR VOLUME 91 fL (80-96); MONOCYTES # (AUTO) 0.4 K/uL (0.1-1.30); NEUTROPHILS # (AUTO) 2.6 K/uL (1.8-8.9); NEUTROPHILS % (AUTO) 59.3 % (43.0-81.0); PLATELET COUNT (AUTO) 213 K/uL (150-450); RED BLOOD CELL COUNT(AUTO) 4.53 MIL/uL (4.5-6.0); WHITE BLOOD COUNT (AUTO) 4.3 K/uL (4.3-11.0)
[2022-01-29 07:42] LABS: CALCIUM, SERUM 8.8 mg/dL (8.5-10.1); CREATININE 1.3 mg/dL (0.6-1.3); POTASSIUM 3.6 mmol/L (3.5-5.1)
[2022-01-29 08:00] VITALS: BP 114/66
[2022-01-29] MEDS: QUETIAPINE FUMARATE 100 MG TABLET PO SCH ×2 (08:29→16:22)
[2022-01-29] MEDS: buPROPion SR 100 MG TABLET.ER PO SCH ×2 (08:29→21:29)
[2022-01-29] MEDS: risperiDONE 1 MG TABLET PO SCH ×2 (08:30→16:22)
[2022-01-29] MEDS: clonazePAM 0.5 MG TABLET PO PRN (08:49)
--- NOTE | 2022-01-29 08:50 | NUR ---
RN-CO: Patient stated he is anxious and hearing voices telling him to hurt himself. Patient also added he does not have plan to hust himself. Klonopin 0.5 mg po given
--- NOTE | 2022-01-29 09:28 | NUR ---
RN-CO: Patient is awake, no s/s of distress,. He is unmotivated and hearing voices telling him to hurt himself but he stated he does not have plan to do it. He is anxious and I gave Klonopin 0.5 mg PO. I encouraged him to ventilate feelings and we will monitor q 15 min and q hr.
--- NOTE | 2022-01-29 10:43 | NUR ---
HERB Initial Discharge Note: Pt currently resides at [address] [address]; ([phone]). Pt does not have any supportive contact at this time. SW will contact the facility to see if pt is welcomed back. HERB will work with the MD and pt to help coordinate appropriate discharge.
--- NOTE | 2022-01-29 10:43 | NUR ---
HERB Clinical Note: Pt placed on a 5150 hold for danger to himself. Pt has been verbalizing suicidal ideation. Pt stating that he is hearing voices that are telling him to molest children. Pt currently resides at [address] [address]; ([phone]). Pt does not have any supportive contact at this time. SW will contact the facility to see if pt is welcomed back.
--- NOTE | 2022-01-29 10:44 | NUR ---
Treatment Plan: Pt refused to sign was guarded and withdrawn.
--- NOTE | 2022-01-29 10:50 | NUR ---
FACILITY CONTACT: SW ATTEMPTED TO [facility]TA[facility] ([phone][facility] TO SEE IF PT IS WELCOMED BACK AND THEY WERE NOT ANSWERING. SW WILL ATTEMPT TO CONTACT AGAIN.
[2022-01-29] MEDS: GABAPENTIN 100 MG CAPSULE PO SCH ×2 (12:23→16:22)
[2022-01-29] MEDS: MAG HYDROX/AL HYDROX/SIMETH 30 ML UDC PO PRN ×2 (12:27→16:21)
--- NOTE | 2022-01-29 12:27 | NUR ---
RN-CO: MAALOX GIVEN TO PT FOR C/O HYPERACIDITY.
--- NOTE | 2022-01-29 13:25 | NUR ---
Facility Contact: SW spoke with Mikayla Admissions from [facility] ([phone]) who stated that pt is welcomed back upon discharge.
[2022-01-29] MEDS ORDERED: SENN-261 PO (13:47)
[2022-01-29 16:00] VITALS: BP 123/84
[2022-01-29] MEDS: GEMFIBROZIL 600 MG TABLET PO SCH (16:22)
[2022-01-29] MEDS: DOCUSATE SODIUM 100 MG CAPSULE PO SCH (16:22)
--- NOTE | 2022-01-29 16:27 | NUR ---
[facility]: MAALOX given for c/o heartburn.
[2022-01-29 19:36] VITALS: BP 100/57
[2022-01-29] MEDS: ATORVASTATIN 10 MG TABLET PO SCH (21:29)
[2022-01-29] MEDS: FLUVOXAMINE MALEATE 50 MG TABLET PO SCH (21:29)
[2022-01-29] MEDS: TEMAZEPAM 7.5 MG CAPSULE PO PRN (21:45)
[2022-01-30 08:00] VITALS: BP 107/65
--- NOTE | 2022-01-30 08:00 | NUR ---
AM GPS Notes: Patient in bed, asleep but easily arouses to voice. Patient is alert, oriented x 3. Denies any SI/HI at this time. Patient is cooperative at this time. Will continue to monitor patient throughout shift.
[2022-01-30] MEDS: PANTOPRAZOLE 40 MG TABLET.DR PO SCH (08:11)
[2022-01-30] MEDS: risperiDONE 1 MG TABLET PO SCH ×2 (08:32→16:24)
[2022-01-30] MEDS: ASPIRIN EC 81 MG TABLET.DR PO SCH (08:32)
[2022-01-30] MEDS: GABAPENTIN 100 MG CAPSULE PO SCH ×3 (08:33→16:24)
[2022-01-30] MEDS: GEMFIBROZIL 600 MG TABLET PO SCH ×2 (08:33→16:23)
[2022-01-30] MEDS: QUETIAPINE FUMARATE 100 MG TABLET PO SCH ×2 (08:33→16:24)
[2022-01-30] MEDS: DOCUSATE SODIUM 100 MG CAPSULE PO SCH ×2 (08:33→16:23)
[2022-01-30] MEDS: buPROPion SR 100 MG TABLET.ER PO SCH ×2 (08:34→21:17)
[2022-01-30] MEDS: AMLODIPINE BESYLATE 5 MG TABLET PO SCH (08:35)
--- NOTE | 2022-01-30 14:35 | NUR ---
Dr. Broderick Dangelo informed of superficial skin rash on patient's bilateral groin area, skin is intact and ordered Lotrimin. Order noted and carried out
[2022-01-30 16:01] VITALS: BP 111/65
--- NOTE | 2022-01-30 16:04 | NUR ---
Received an order of 14 day hold for the patient from Dr. Ortiz, faxed to the court and received confirmation receipt. 14-day hold copy given to the patient and explained to patient.
[2022-01-30] MEDS: CLOTRIMAZOLE 1% 15 GM TUBE TP SCH (16:25)
--- NOTE | 2022-01-30 18:41 | NUR ---
RN GPS CLOSING NOTES: Patient in bed asleep but easily arouses when his name is called. Patient denies any pain or discomfort at this time. No SI/HI and no episode of auditory or visual hallucination noted throughout shift. Patient is calm and cooperative right now and in no acute distress. Will endorse to incoming nurse for continuity of care.
[2022-01-30 20:57] VITALS: BP 120/78
[2022-01-30] MEDS: FLUVOXAMINE MALEATE 50 MG TABLET PO SCH (21:16)
[2022-01-30] MEDS: ATORVASTATIN 10 MG TABLET PO SCH (21:17)
[2022-01-30] MEDS: TEMAZEPAM 7.5 MG CAPSULE PO PRN (21:17)
--- NOTE | 2022-01-31 07:14 | NUR ---
WOUND CARE CONSULT: RECEIVED CONSULT FOR GROIN RASH, PRESENT ON ADMISSION. PER ADMISSION PHOTO, THERE IS SKIN CONDITION TO BILATERAL ELBOWS. DEFER TO PMD FOR ELBOW SKIN CONDITION. PT HAS LOTRIMIN CREAM ORDERED FOR GROIN RASH. CONCUR WITH CURRENT TREATMENT. DISCUSSED WITH NURSING STAFF. WILL SEE PRN.
[2022-01-31 08:00] VITALS: BP 133/90
[2022-01-31] MEDS: PANTOPRAZOLE 40 MG TABLET.DR PO SCH (08:25)
[2022-01-31] MEDS: GABAPENTIN 100 MG CAPSULE PO SCH ×3 (08:32→17:15)
[2022-01-31] MEDS: ASPIRIN EC 81 MG TABLET.DR PO SCH (08:33)
[2022-01-31] MEDS: risperiDONE 1 MG TABLET PO SCH ×2 (08:33→17:14)
[2022-01-31] MEDS: GEMFIBROZIL 600 MG TABLET PO SCH ×2 (08:33→17:15)
[2022-01-31] MEDS: QUETIAPINE FUMARATE 100 MG TABLET PO SCH ×2 (08:33→17:15)
[2022-01-31] MEDS: buPROPion SR 100 MG TABLET.ER PO SCH ×2 (08:33→21:01)
[2022-01-31] MEDS: AMLODIPINE BESYLATE 5 MG TABLET PO SCH (08:34)
[2022-01-31] MEDS: DOCUSATE SODIUM 100 MG CAPSULE PO SCH ×2 (08:34→17:15)
[2022-01-31] MEDS: CLOTRIMAZOLE 1% 15 GM TUBE TP SCH ×2 (08:35→17:15)
--- NOTE | 2022-01-31 11:24 | NUR ---
HERB Note: Pt stated to this policy writer sales that he does not want to return back to [facility] and wants to go to another facility. SW will send clinicals to pt's preferred location.
--- NOTE | 2022-01-31 11:29 | NUR ---
HERB SNF Referral: HERB sent clinicals to Niles caldwell from [facility] ([phone]) for placement. HERB sent H & P, progress notes, and medication list.
[2022-01-31] MEDS: clonazePAM 0.5 MG TABLET PO PRN (15:42)
--- NOTE | 2022-01-31 15:45 | NUR ---
NURSE NOTE: PT FEELING ANXIOUS. REQUESTED CLONAZEPAM. CLONAZEPAM PO ADMINISTERED ORDERED. PT BELL WELL. WILL CONT TO MONITOR.
[2022-01-31 16:00] VITALS: BP 106/67
--- NOTE | 2022-01-31 16:45 | NUR ---
NURSE NOTE: PER PT FEELING BETTER. CLONAZEPAM EFFECTIVE. WILL CONT TO MONITOR.
[2022-01-31 20:01] VITALS: BP 100/64
[2022-01-31] MEDS: ATORVASTATIN 10 MG TABLET PO SCH (21:01)
[2022-01-31] MEDS: FLUVOXAMINE MALEATE 50 MG TABLET PO SCH (21:01)
[2022-02-01 08:00] VITALS: BP 130/85
[2022-02-01] MEDS: GABAPENTIN 100 MG CAPSULE PO SCH ×3 (08:18→16:33)
[2022-02-01] MEDS: buPROPion SR 100 MG TABLET.ER PO SCH ×2 (08:19→21:10)
[2022-02-01] MEDS: AMLODIPINE BESYLATE 5 MG TABLET PO SCH (08:19)
[2022-02-01] MEDS: ASPIRIN EC 81 MG TABLET.DR PO SCH (08:19)
[2022-02-01] MEDS: DOCUSATE SODIUM 100 MG CAPSULE PO SCH ×2 (08:19→16:32)
[2022-02-01] MEDS: PANTOPRAZOLE 40 MG TABLET.DR PO SCH (08:19)
[2022-02-01] MEDS: GEMFIBROZIL 600 MG TABLET PO SCH ×2 (08:20→16:32)
[2022-02-01] MEDS: QUETIAPINE FUMARATE 25 MG TABLET PO SCH ×2 (08:23→16:32)
[2022-02-01] MEDS: risperiDONE 1 MG TABLET PO SCH ×2 (08:24→16:33)
[2022-02-01] MEDS: QUETIAPINE FUMARATE 100 MG TABLET PO SCH ×2 (08:24→16:32)
--- NOTE | 2022-02-01 08:41 | NUR ---
SW SNF Contact: SW received a call from Niles caldwell from [facility] ([phone]) who denied pt due to behavioral issues.
--- NOTE | 2022-02-01 08:42 | NUR ---
HERB SNF Referral: HERB sent clinicals to Priscila caldwell from [facility] ([phone]) for placement. HERB sent H & P, progress notes, and medication list.
[2022-02-01] MEDS: CLOTRIMAZOLE 1% 15 GM TUBE TP SCH ×2 (09:16→16:34)
--- NOTE | 2022-02-01 10:38 | NUR ---
RN Notes: Received pt. awake in the room, responsive to staffs. Pt. ate 50% for breakfast and compliant with meds and skin treatment. Pt. seen walking in the hallway with a walker, no distress and no agitation noted. Pt. denies suicidal and homicidal at time of interactions and said he is still depressed. Pt. was encouraged to tell staffs if feel like hurting himself or others. Encouraged to verbalize feelings and motivated to attend group activity. Needs attended and will continue to monitor for safety
[2022-02-01] MEDS: clonazePAM 0.5 MG TABLET PO PRN (10:45)
--- NOTE | 2022-02-01 10:49 | NUR ---
Pt. reported that he is seeing shadows and lights and prn for Klonopin given.
--- NOTE | 2022-02-01 10:56 | NUR ---
SNF Contact: SW received a call from Priscila caldwell ([phone]) who stated that pt is accepted at [facility].
--- NOTE | 2022-02-01 12:09 | NUR ---
Court Notification: Pt does not have any supportive contact to notify of [phone].
--- NOTE | 2022-02-01 12:09 | NUR ---
Court Hearing: Patient's court hearing for 5250 was today and it was upheld for danger to self and GD.
--- NOTE | 2022-02-01 15:45 | NUR ---
SW Note: [facility] wants pt back, however, pt does not want to return back. HERB spoke with Tammy charge nurse and Mikayla and stated pt does not want to return back and they contacted pt and pt stated he does not want to return back. iMkayla stated to send pt to [facility] and pt stated that he does not want to go there. SW will follow up. Pt wants to go to [facility] at this time.
[2022-02-01 16:00] VITALS: BP 113/83
--- NOTE | 2022-02-01 19:30 | NUR ---
GPS RN NOTE, RECEIVED PATIENT AWAKE AND IN BED, NO S/S OR COMPLAINTS OF PAIN AT THIS TIME. PATIENT IS DISPLAYING NO S/S OF APPARENT DISTRESS AT THIS TIME. PATIENT BREATHING IS UNLABORED WITH EQUAL RISE AND FALL OF THE CHEST. PATIENT IS ALERT AND ORIENTED X 3 ON ROOM AIR WITH A SPO2 98%. PATIENT IS COMPLIANT WITH MEDICATIONS, DEPRESSED, MAKES NEEDS KNOWN, POLITE, IS A HAVING VISUAL HALLUCINATIONS OF SHADOW PEOPLE, AND COOPERATIVE. PATIENT DENIES SUICIDAL AND HOMICIDAL IDEATIONS AT THIS TIME. PATIENT ASSISTED WITH TURNING AND REPOSITIONING Q2HR AND PRN FOR COMFORT AND CIRCULATION. PATIENT HAS NO NEEDS AT THIS TIME. PATIENT EDUCATED ON THE USE OF THE CALL [place]. PATIENT BED SIDE RAILS UP X 2 FOR SAFETY. PATIENT BED IS LOCKED, LOW, WITH BED ALARM ON. WILL CONTINUE TO MONITOR THIS PATIENT Q15 MINUTES WITH THE HELP OF STAFF TO MAINTAIN SAFETY.
[2022-02-01 19:51] VITALS: BP 100/55
[2022-02-01] MEDS: ATORVASTATIN 10 MG TABLET PO SCH (21:10)
[2022-02-01] MEDS: FLUVOXAMINE MALEATE 50 MG TABLET PO SCH (21:10)
[2022-02-02 08:00] VITALS: BP 118/86
[2022-02-02] MEDS: PANTOPRAZOLE 40 MG TABLET.DR PO SCH (08:36)
[2022-02-02] MEDS: DOCUSATE SODIUM 100 MG CAPSULE PO SCH ×2 (08:36→17:14)
[2022-02-02] MEDS: risperiDONE 1 MG TABLET PO SCH ×2 (08:36→17:13)
[2022-02-02] MEDS: QUETIAPINE FUMARATE 25 MG TABLET PO SCH ×2 (08:36→17:13)
[2022-02-02] MEDS: buPROPion SR 100 MG TABLET.ER PO SCH ×2 (08:36→21:35)
[2022-02-02] MEDS: GABAPENTIN 100 MG CAPSULE PO SCH ×3 (08:36→17:14)
[2022-02-02] MEDS: GEMFIBROZIL 600 MG TABLET PO SCH ×2 (08:36→17:14)
[2022-02-02] MEDS: ASPIRIN EC 81 MG TABLET.DR PO SCH (08:36)
[2022-02-02] MEDS: AMLODIPINE BESYLATE 5 MG TABLET PO SCH (08:37)
[2022-02-02] MEDS: QUETIAPINE FUMARATE 100 MG TABLET PO SCH ×2 (08:39→17:13)
[2022-02-02] MEDS: CLOTRIMAZOLE 1% 15 GM TUBE TP SCH ×2 (10:16→17:10)
[2022-02-02] MEDS: clonazePAM 0.5 MG TABLET PO PRN (11:17)
[2022-02-02 16:00] VITALS: BP 104/68
[2022-02-02 20:00] VITALS: BP 138/85
[2022-02-02] MEDS: FLUVOXAMINE MALEATE 50 MG TABLET PO SCH (21:35)
[2022-02-02] MEDS: ATORVASTATIN 10 MG TABLET PO SCH (21:35)
[2022-02-03 08:00] VITALS: BP 133/82
[2022-02-03] MEDS: DOCUSATE SODIUM 100 MG CAPSULE PO SCH ×2 (08:45→17:38)
[2022-02-03] MEDS: PANTOPRAZOLE 40 MG TABLET.DR PO SCH (08:45)
[2022-02-03] MEDS: GABAPENTIN 100 MG CAPSULE PO SCH ×3 (08:45→17:38)
[2022-02-03] MEDS: risperiDONE 1 MG TABLET PO SCH ×2 (08:46→17:38)
[2022-02-03] MEDS: AMLODIPINE BESYLATE 5 MG TABLET PO SCH (08:46)
[2022-02-03] MEDS: QUETIAPINE FUMARATE 100 MG TABLET PO SCH ×2 (08:46→17:38)
[2022-02-03] MEDS: ASPIRIN EC 81 MG TABLET.DR PO SCH (08:47)
[2022-02-03] MEDS: GEMFIBROZIL 600 MG TABLET PO SCH ×2 (08:47→17:38)
[2022-02-03] MEDS: QUETIAPINE FUMARATE 25 MG TABLET PO SCH ×2 (08:49→17:38)
[2022-02-03] MEDS: buPROPion SR 100 MG TABLET.ER PO SCH ×2 (08:49→21:10)
[2022-02-03] MEDS: CLOTRIMAZOLE 1% 15 GM TUBE TP SCH ×2 (08:50→17:39)
[2022-02-03 16:06] VITALS: BP 147/86
[2022-02-03] MEDS: clonazePAM 0.5 MG TABLET PO PRN (16:44)
[2022-02-03 20:00] VITALS: BP 106/83
[2022-02-03] MEDS: FLUVOXAMINE MALEATE 50 MG TABLET PO SCH (21:10)
[2022-02-03] MEDS: ATORVASTATIN 10 MG TABLET PO SCH (21:10)
[2022-02-04] MEDS: clonazePAM 0.5 MG TABLET PO PRN (07:25)
--- NOTE | 2022-02-04 07:27 | NUR ---
GPS RN NOTE, PATIENT HAS A COMPLAINT OF FEELING ANXIOUS AND IS REQUESTING KLONOPIN AT THIS TIME. PATIENT VITAL SIGNS ARE STABLE. GAVE KLONOPIN 0.5MG PO Q4HR PRN ORDERED. WILL REASSESS FOR ANXIETY AND I WILL CONTINUE TO MONITOR THIS PATIENT WITH THE HELP OF STAFF.
[2022-02-04 08:00] VITALS: BP 124/86
[2022-02-04] MEDS: QUETIAPINE FUMARATE 100 MG TABLET PO SCH ×2 (08:50→21:23)
[2022-02-04] MEDS: PANTOPRAZOLE 40 MG TABLET.DR PO SCH (08:50)
[2022-02-04] MEDS: GABAPENTIN 100 MG CAPSULE PO SCH ×3 (08:51→17:30)
[2022-02-04] MEDS: risperiDONE 1 MG TABLET PO SCH ×2 (08:51→17:30)
[2022-02-04] MEDS: QUETIAPINE FUMARATE 25 MG TABLET PO SCH (08:51)
[2022-02-04] MEDS: GEMFIBROZIL 600 MG TABLET PO SCH ×2 (08:51→17:29)
[2022-02-04] MEDS: CLOTRIMAZOLE 1% 15 GM TUBE TP SCH ×2 (08:52→17:26)
[2022-02-04] MEDS: AMLODIPINE BESYLATE 5 MG TABLET PO SCH (08:52)
[2022-02-04] MEDS: buPROPion SR 100 MG TABLET.ER PO SCH (08:52)
[2022-02-04] MEDS: DOCUSATE SODIUM 100 MG CAPSULE PO SCH ×2 (08:53→17:30)
[2022-02-04] MEDS: ASPIRIN EC 81 MG TABLET.DR PO SCH (08:54)
[2022-02-04 16:00] VITALS: BP 138/90
[2022-02-04] MEDS ORDERED: QUETIAPINE FUMARATE 100 MG TABLET PO SCH (17:00)
[2022-02-04] MEDS: BENZTROPINE MESYLATE (1 MG) 1 MG TABLET PO SCH ×2 (18:43→21:23)
--- NOTE | 2022-02-04 20:00 | NUR ---
RN NOTE PATIENT REFUSED WEEKLY SKIN ASSESSMENT.
[2022-02-04 20:45] VITALS: BP 123/75
[2022-02-04] MEDS: ATORVASTATIN 10 MG TABLET PO SCH (21:23)
[2022-02-04] MEDS: FLUVOXAMINE MALEATE 50 MG TABLET PO SCH (21:25)
[2022-02-05] MEDS: clonazePAM 0.5 MG TABLET PO PRN (06:45)
[2022-02-05] MEDS: PANTOPRAZOLE 40 MG TABLET.DR PO SCH (07:30)
[2022-02-05 08:00] VITALS: BP 128/83
[2022-02-05] MEDS: risperiDONE 1 MG TABLET PO SCH ×2 (08:17→17:49)
[2022-02-05] MEDS: DOCUSATE SODIUM 100 MG CAPSULE PO SCH ×2 (08:18→17:49)
[2022-02-05] MEDS: GABAPENTIN 100 MG CAPSULE PO SCH ×3 (08:18→17:49)
[2022-02-05] MEDS: ASPIRIN EC 81 MG TABLET.DR PO SCH (08:18)
[2022-02-05] MEDS: GEMFIBROZIL 600 MG TABLET PO SCH ×2 (08:18→17:49)
[2022-02-05] MEDS: BENZTROPINE MESYLATE (1 MG) 1 MG TABLET PO SCH ×3 (08:18→21:16)
[2022-02-05] MEDS: BUPROPION XL 150 MG TAB.ER.24 PO SCH (08:18)
[2022-02-05] MEDS: AMLODIPINE BESYLATE 5 MG TABLET PO SCH (08:30)
[2022-02-05] MEDS: CLOTRIMAZOLE 1% 15 GM TUBE TP SCH ×2 (08:30→17:50)
[2022-02-05 16:00] VITALS: BP 125/67
[2022-02-05 20:31] VITALS: BP 120/78
[2022-02-05] MEDS: FLUVOXAMINE MALEATE 50 MG TABLET PO SCH (21:15)
[2022-02-05] MEDS: ATORVASTATIN 10 MG TABLET PO SCH (21:15)
[2022-02-05] MEDS: TEMAZEPAM 7.5 MG CAPSULE PO PRN (21:16)
[2022-02-05] MEDS: QUETIAPINE FUMARATE 100 MG TABLET PO SCH (21:16)
[2022-02-06 08:00] VITALS: BP 126/88
[2022-02-06] MEDS: PANTOPRAZOLE 40 MG TABLET.DR PO SCH (08:03)
[2022-02-06] MEDS: GEMFIBROZIL 600 MG TABLET PO SCH ×2 (08:03→17:55)
[2022-02-06] MEDS: risperiDONE 1 MG TABLET PO SCH ×2 (08:03→17:54)
[2022-02-06] MEDS: BUPROPION XL 150 MG TAB.ER.24 PO SCH (08:03)
[2022-02-06] MEDS: GABAPENTIN 100 MG CAPSULE PO SCH ×3 (08:03→17:54)
[2022-02-06] MEDS: AMLODIPINE BESYLATE 5 MG TABLET PO SCH (08:04)
[2022-02-06] MEDS: ASPIRIN EC 81 MG TABLET.DR PO SCH (08:04)
[2022-02-06] MEDS: DOCUSATE SODIUM 100 MG CAPSULE PO SCH ×2 (08:04→17:54)
[2022-02-06] MEDS: BENZTROPINE MESYLATE (1 MG) 1 MG TABLET PO SCH ×3 (08:04→21:05)
[2022-02-06] MEDS: CLOTRIMAZOLE 1% 15 GM TUBE TP SCH ×2 (13:34→18:00)
[2022-02-06 15:58] VITALS: BP 131/86
--- NOTE | 2022-02-06 18:34 | NUR ---
RN-NOTES PT VISIBLE IN THE UNIT WALKING WITH WALKER. NO ACUTE DISTRESS NOTED. A/O X 3. COMPLIANT WITH MEDICATIONS, ANXIOUS AT TIMES, PT DENIES SI/HI AT THIS TIME. ALL NEEDS ATTENDED AND ANTICIPATED, WILL CONTINUE TO MONITOR Q15MIN FOR SAFETY AND BEHAVIOR. WILL ENDORSE TO INCOMING NURSE FOR CONTINUITY OF CARE.
[2022-02-06 20:03] VITALS: BP 130/71
[2022-02-06] MEDS: ATORVASTATIN 10 MG TABLET PO SCH (21:05)
[2022-02-06] MEDS: TEMAZEPAM 7.5 MG CAPSULE PO PRN (21:05)
[2022-02-06] MEDS: QUETIAPINE FUMARATE 100 MG TABLET PO SCH (21:05)
[2022-02-06] MEDS: FLUVOXAMINE MALEATE 50 MG TABLET PO SCH (21:07)
[2022-02-07] MEDS: PANTOPRAZOLE 40 MG TABLET.DR PO SCH (07:48)
[2022-02-07 08:00] VITALS: BP 140/84
[2022-02-07] MEDS: BUPROPION XL 150 MG TAB.ER.24 PO SCH (08:26)
[2022-02-07] MEDS: AMLODIPINE BESYLATE 5 MG TABLET PO SCH (08:26)
[2022-02-07] MEDS: DOCUSATE SODIUM 100 MG CAPSULE PO SCH ×2 (08:26→16:10)
[2022-02-07] MEDS: GEMFIBROZIL 600 MG TABLET PO SCH ×2 (08:26→16:11)
[2022-02-07] MEDS: risperiDONE 1 MG TABLET PO SCH ×2 (08:26→16:11)
[2022-02-07] MEDS: ASPIRIN EC 81 MG TABLET.DR PO SCH (08:26)
[2022-02-07] MEDS: BENZTROPINE MESYLATE (1 MG) 1 MG TABLET PO SCH ×4 (08:27→21:11)
[2022-02-07] MEDS: GABAPENTIN 100 MG CAPSULE PO SCH ×3 (08:27→16:11)
[2022-02-07] MEDS: clonazePAM 0.5 MG TABLET PO PRN ×2 (08:31→16:57)
--- NOTE | 2022-02-07 08:31 | NUR ---
RN-CO: KLONOPIN 0.5MG GIVEN FOR C/O ANXIETY.
--- NOTE | 2022-02-07 08:39 | NUR ---
RN-CO: PT REFUSED CARRIE, STATED " BEC OF THAT I HAVE WEIRD THOUGHTS."
[2022-02-07] MEDS: CLOTRIMAZOLE 1% 15 GM TUBE TP SCH ×2 (09:00→17:00)
--- NOTE | 2022-02-07 09:37 | NUR ---
RN-CO: PATIENT TOOK ALL HIS MEDICATIONS AND REQUESTED FOR KLONOPIN FOR ANXIETY. HE IS COOPERATIVE TO CARE . I ENCOURAGED HIM TO VENTILATE HIS FEELINGS AND PARTICIPATE IN GROUP ACTIVITIES. HE DENIED SI/HI, AND COMMAND HALLUCINATIONS.I WILL CONTINUE TO MONITOR.
[2022-02-07 16:00] VITALS: BP 119/76
--- NOTE | 2022-02-07 16:12 | NUR ---
RN-CO: PATIENT REFUSED COGENTIN HE STATED " I HAVE VISUAL HALLUCINATIONS BEC OF THAT, MD MADE AWARE.
--- NOTE | 2022-02-07 16:57 | NUR ---
RN-CO: KLONOPIN 0.5 MG PO WAS REQUESTED FOR C/O OF RESTLESSNESS.
--- NOTE | 2022-02-07 17:59 | NUR ---
RN-CO: PT STATED " I DON'T NEED THE LOTRIMIN CREAM RIGHT NOW."
[2022-02-07 19:52] VITALS: BP 127/64
[2022-02-07] MEDS: ATORVASTATIN 10 MG TABLET PO SCH (21:11)
[2022-02-07] MEDS: QUETIAPINE FUMARATE 100 MG TABLET PO SCH (21:11)
[2022-02-07] MEDS: FLUVOXAMINE MALEATE 50 MG TABLET PO SCH (21:12)
[2022-02-07] MEDS: TEMAZEPAM 7.5 MG CAPSULE PO PRN (21:22)
[2022-02-08] MEDS: clonazePAM 0.5 MG TABLET PO PRN (06:10)
[2022-02-08 08:00] VITALS: BP 131/73
[2022-02-08] MEDS: AMLODIPINE BESYLATE 5 MG TABLET PO SCH (08:11)
[2022-02-08] MEDS: risperiDONE 1 MG TABLET PO SCH ×2 (08:11→16:35)
[2022-02-08] MEDS: BENZTROPINE MESYLATE (1 MG) 1 MG TABLET PO SCH ×2 (08:11→08:43)
[2022-02-08] MEDS: BUPROPION XL 150 MG TAB.ER.24 PO SCH (08:11)
[2022-02-08] MEDS: PANTOPRAZOLE 40 MG TABLET.DR PO SCH (08:11)
[2022-02-08] MEDS: ASPIRIN EC 81 MG TABLET.DR PO SCH (08:11)
[2022-02-08] MEDS: DOCUSATE SODIUM 100 MG CAPSULE PO SCH ×2 (08:11→16:35)
[2022-02-08] MEDS: GABAPENTIN 100 MG CAPSULE PO SCH ×3 (08:12→16:35)
[2022-02-08] MEDS: GEMFIBROZIL 600 MG TABLET PO SCH ×2 (08:12→16:35)
[2022-02-08] MEDS: TRIHEXYPHENIDYL HCL 2 MG TABLET PO SCH (08:43)
[2022-02-08] MEDS: busPIRone 5 MG TABLET PO SCH ×2 (08:43→16:35)
[2022-02-08] MEDS: CLOTRIMAZOLE 1% 15 GM TUBE TP SCH ×2 (09:16→17:01)
--- NOTE | 2022-02-08 09:35 | NUR ---
RN Notes: Received pt. awake in bed, responsive to staffs. Pt. seen by psychiatric arnp with new order of meds. Pt. ate 100% for breakfast, refused on Cogentin and compliant on the rest of the po meds and skin treatment. Encouraged to verbalize feelings and motivated to attend group activity and encouraged to take shower. Needs attended and will continue to monitor for safety.
[2022-02-08 16:00] VITALS: BP 138/88
--- NOTE | 2022-02-08 19:30 | NUR ---
GPS RN NOTE, RECEIVED PATIENT AWAKE AND IN BED, NO S/S OR COMPLAINTS OF PAIN AT THIS TIME. PATIENT IS DISPLAYING NO S/S OF APPARENT DISTRESS AT THIS TIME. PATIENT BREATHING IS UNLABORED WITH EQUAL RISE AND FALL OF THE CHEST. PATIENT IS ALERT AND ORIENTED X 3 ON ROOM AIR WITH A SPO2 97%. PATIENT IS COMPLIANT WITH MEDICATIONS, DEPRESSED, MAKES NEEDS KNOWN, POLITE, AND COOPERATIVE. PATIENT DENIES SUICIDAL AND HOMICIDAL IDEATIONS AT THIS TIME. PATIENT ASSISTED WITH TURNING AND REPOSITIONING Q2HR AND PRN FOR COMFORT AND CIRCULATION. PATIENT HAS NO NEEDS AT THIS TIME. PATIENT EDUCATED ON THE USE OF THE CALL MCCLELLAN. PATIENT BED SIDE RAILS UP X 2 FOR SAFETY. PATIENT BED IS LOCKED, LOW, WITH BED ALARM ON. WILL CONTINUE TO MONITOR THIS PATIENT Q15 MINUTES WITH THE HELP OF STAFF TO MAINTAIN SAFETY.
[2022-02-08 20:00] VITALS: BP 124/77
[2022-02-08] MEDS: QUETIAPINE FUMARATE 100 MG TABLET PO SCH (21:32)
[2022-02-08] MEDS: FLUVOXAMINE MALEATE 50 MG TABLET PO SCH (21:32)
[2022-02-08] MEDS: ATORVASTATIN 10 MG TABLET PO SCH (21:32)
[2022-02-09 08:00] VITALS: BP 117/69
[2022-02-09] MEDS: DOCUSATE SODIUM 100 MG CAPSULE PO SCH ×2 (08:08→16:06)
[2022-02-09] MEDS: risperiDONE 1 MG TABLET PO SCH ×2 (08:08→16:07)
[2022-02-09] MEDS: busPIRone 5 MG TABLET PO SCH ×2 (08:08→16:07)
[2022-02-09] MEDS: TRIHEXYPHENIDYL HCL 2 MG TABLET PO SCH (08:08)
[2022-02-09] MEDS: ASPIRIN EC 81 MG TABLET.DR PO SCH (08:08)
[2022-02-09] MEDS: BUPROPION XL 150 MG TAB.ER.24 PO SCH (08:08)
[2022-02-09] MEDS: GEMFIBROZIL 600 MG TABLET PO SCH ×2 (08:08→16:06)
[2022-02-09] MEDS: PANTOPRAZOLE 40 MG TABLET.DR PO SCH (08:08)
[2022-02-09] MEDS: GABAPENTIN 100 MG CAPSULE PO SCH ×3 (08:08→16:07)
[2022-02-09] MEDS: AMLODIPINE BESYLATE 5 MG TABLET PO SCH (08:08)
[2022-02-09] MEDS: CLOTRIMAZOLE 1% 15 GM TUBE TP SCH ×2 (09:12→16:08)
--- NOTE | 2022-02-09 09:30 | NUR ---
RN Notes: Received pt. asleep in bed, breathing is even and unlabored. Ate 100% breakfast and compliant on meds and treatment. Encouraged to verbalize feelings and motivated to attend group activity and to take shower. No distress and no agitation noted. Needs attended and will continue to monitor for safety.
--- NOTE | 2022-02-09 14:12 | NUR ---
HERB Note: SW received a call from [facility] admissions who stated that pt owns the facility a share of cost and that they were requesting to speak to the pt. Facility spoke to pt and pt does not want to go back to [facility].
[2022-02-09 16:00] VITALS: BP 134/95
--- NOTE | 2022-02-09 19:30 | NUR ---
GPS RN NOTE, RECEIVED PATIENT AWAKE AND IN BED, NO S/S OR COMPLAINTS OF PAIN AT THIS TIME. PATIENT IS DISPLAYING NO S/S OF APPARENT DISTRESS AT THIS TIME. PATIENT BREATHING IS UNLABORED WITH EQUAL RISE AND FALL OF THE CHEST. PATIENT IS ALERT AND ORIENTED X 3 ON ROOM AIR WITH A SPO2 97%. PATIENT IS COMPLIANT WITH MEDICATIONS, DEPRESSED, MAKES NEEDS KNOWN, POLITE, AND COOPERATIVE. PATIENT IS PARANOID ABOUT HIS DISCHARGE. PATIENT DENIES SUICIDAL AND HOMICIDAL IDEATIONS AT THIS TIME. PATIENT ASSISTED WITH TURNING AND REPOSITIONING Q2HR AND PRN FOR COMFORT AND CIRCULATION. PATIENT HAS NO NEEDS AT THIS TIME. PATIENT EDUCATED ON THE USE OF THE CALL MCCLELLAN. PATIENT BED SIDE RAILS UP X 2 FOR SAFETY. PATIENT BED IS LOCKED, LOW, WITH BED ALARM ON. WILL CONTINUE TO MONITOR THIS PATIENT Q15 MINUTES WITH THE HELP OF STAFF TO MAINTAIN SAFETY.
[2022-02-09 20:00] VITALS: BP 115/73
[2022-02-09] MEDS: ATORVASTATIN 10 MG TABLET PO SCH (21:52)
[2022-02-09] MEDS: QUETIAPINE FUMARATE 100 MG TABLET PO SCH (21:52)
[2022-02-09] MEDS: FLUVOXAMINE MALEATE 50 MG TABLET PO SCH (21:52)
--- NOTE | 2022-02-09 21:52 | NUR ---
GPS RN NOTE, PATIENT REFUSED SEROQUEL 200 MG PO HS. OFFERED THREE TIMES AND STILL PATIENT REFUSED STATING, " IT DOES NOT HELP ME WITH INTRUSIVE THOUGHTS ". EDUCATED PATIENT ON THE RISKS AND BENEFITS OF TAKING AND REFUSING SEROQUEL. WILL CONTINUE TO MONITOR THIS PATIENT WITH THE HELP OF STAFF.
[2022-02-09] MEDS: clonazePAM 0.5 MG TABLET PO PRN (21:58)
[2022-02-10] MEDS: clonazePAM 0.5 MG TABLET PO PRN (06:11)
[2022-02-10 08:00] VITALS: BP 124/88
[2022-02-10] MEDS: CLOTRIMAZOLE 1% 15 GM TUBE TP SCH ×2 (08:36→17:30)
[2022-02-10] MEDS: busPIRone 5 MG TABLET PO SCH ×2 (08:41→17:32)
[2022-02-10] MEDS: BUPROPION XL 150 MG TAB.ER.24 PO SCH (08:42)
[2022-02-10] MEDS: PANTOPRAZOLE 40 MG TABLET.DR PO SCH (08:42)
[2022-02-10] MEDS: ASPIRIN EC 81 MG TABLET.DR PO SCH (08:42)
[2022-02-10] MEDS: GABAPENTIN 100 MG CAPSULE PO SCH ×3 (08:42→17:32)
[2022-02-10] MEDS: DOCUSATE SODIUM 100 MG CAPSULE PO SCH ×2 (08:42→17:32)
[2022-02-10] MEDS: TRIHEXYPHENIDYL HCL 2 MG TABLET PO SCH (08:42)
[2022-02-10] MEDS: risperiDONE 1 MG TABLET PO SCH ×2 (08:43→17:33)
[2022-02-10] MEDS: AMLODIPINE BESYLATE 5 MG TABLET PO SCH (08:44)
[2022-02-10] MEDS: GEMFIBROZIL 600 MG TABLET PO SCH ×2 (08:45→17:32)
[2022-02-10 16:00] VITALS: BP 116/68
--- NOTE | 2022-02-10 19:30 | NUR ---
GPS RN NOTE, RECEIVED PATIENT AWAKE AND IN BED, NO S/S OR COMPLAINTS OF PAIN AT THIS TIME. PATIENT IS DISPLAYING NO S/S OF APPARENT DISTRESS AT THIS TIME. PATIENT BREATHING IS UNLABORED WITH EQUAL RISE AND FALL OF THE CHEST. PATIENT IS ALERT AND ORIENTED X 3 ON ROOM AIR WITH A SPO2 94%. PATIENT IS COMPLIANT WITH MEDICATIONS, DEPRESSED, MAKES NEEDS KNOWN, POLITE, AND COOPERATIVE. PATIENT IS PARANOID ABOUT HIS DISCHARGE. PATIENT DENIES SUICIDAL AND HOMICIDAL IDEATIONS AT THIS TIME. PATIENT ASSISTED WITH TURNING AND REPOSITIONING Q2HR AND PRN FOR COMFORT AND CIRCULATION. PATIENT HAS NO NEEDS AT THIS TIME. PATIENT EDUCATED ON THE USE OF THE CALL MCCLELLAN. PATIENT BED SIDE RAILS UP X 2 FOR SAFETY. PATIENT BED IS LOCKED, LOW, WITH BED ALARM ON. WILL CONTINUE TO MONITOR THIS PATIENT Q15 MINUTES WITH THE HELP OF STAFF TO MAINTAIN SAFETY.
[2022-02-10 20:00] VITALS: BP 107/61
[2022-02-10] MEDS: QUETIAPINE FUMARATE 100 MG TABLET PO SCH (22:00)
[2022-02-10] MEDS: FLUVOXAMINE MALEATE 50 MG TABLET PO SCH (22:05)
[2022-02-10] MEDS: GUAIFENESIN/D-METHORPHAN HB 5 ML UDC PO PRN (22:06)
[2022-02-10] MEDS: ATORVASTATIN 10 MG TABLET PO SCH (22:06)
--- NOTE | 2022-02-10 22:06 | NUR ---
GPS RN NOTE, PATIENT HAS A COMPLAINT OF A DRY COUGH AND IS REQUESTING ROBITUSSIN AT THIS TIME. [facility] AND INFORMED BRENDON OLMEDO NP OF MY FINDINGS. BRENDON OLMEDO NP ORDERED ROBITUSSIN DM 5ML 1 UNIT DOSE PO Q6HR PRN FOR COUGH. ALL ORDERS NOTED AND CARRIED OUT. GAVE ROBITUSSIN DM 5ML 1UNIT DOSE PO Q6HR PRN ORDERED. WILL CONTINUE TO MONITOR THIS PATIENT WITH THE HELP OF STAFF.
[2022-02-10] MEDS: TEMAZEPAM 7.5 MG CAPSULE PO PRN (22:16)
[2022-02-11] MEDS: clonazePAM 0.5 MG TABLET PO PRN (04:44)
[2022-02-11 08:00] VITALS: BP 134/85
[2022-02-11] MEDS: BUPROPION XL 150 MG TAB.ER.24 PO SCH (08:16)
[2022-02-11] MEDS: DOCUSATE SODIUM 100 MG CAPSULE PO SCH ×2 (08:16→17:15)
[2022-02-11] MEDS: PANTOPRAZOLE 40 MG TABLET.DR PO SCH (08:16)
[2022-02-11] MEDS: TRIHEXYPHENIDYL HCL 2 MG TABLET PO SCH (08:17)
[2022-02-11] MEDS: AMLODIPINE BESYLATE 5 MG TABLET PO SCH (08:17)
[2022-02-11] MEDS: GABAPENTIN 100 MG CAPSULE PO SCH ×2 (08:17→13:20)
[2022-02-11] MEDS: ASPIRIN EC 81 MG TABLET.DR PO SCH (08:17)
[2022-02-11] MEDS: busPIRone 5 MG TABLET PO SCH ×2 (08:17→17:15)
[2022-02-11] MEDS: risperiDONE 1 MG TABLET PO SCH ×2 (08:17→17:15)
[2022-02-11] MEDS: GEMFIBROZIL 600 MG TABLET PO SCH ×2 (08:17→17:15)
[2022-02-11] MEDS: CLOTRIMAZOLE 1% 15 GM TUBE TP SCH ×2 (08:18→17:13)
[2022-02-11 16:00] VITALS: BP 136/73
[2022-02-11] MEDS: GABAPENTIN 300 MG CAPSULE PO SCH (17:15)
[2022-02-11] MEDS: GUAIFENESIN/D-METHORPHAN HB 5 ML UDC PO PRN (18:23)
[2022-02-11 20:48] VITALS: BP 126/64
[2022-02-11] MEDS: FLUVOXAMINE MALEATE 50 MG TABLET PO SCH (21:01)
[2022-02-11] MEDS: ATORVASTATIN 10 MG TABLET PO SCH (21:02)
[2022-02-11] MEDS: TEMAZEPAM 7.5 MG CAPSULE PO PRN (21:03)
[2022-02-12] MEDS: clonazePAM 0.5 MG TABLET PO PRN (07:39)
[2022-02-12] MEDS: PANTOPRAZOLE 40 MG TABLET.DR PO SCH (07:39)
--- NOTE | 2022-02-12 07:40 | NUR ---
RNClarenceCO: KLONOPIN GIVEN FOR C/O ANXIETY AND RESTLESSNESS.
[2022-02-12 08:00] VITALS: BP 135/81
--- NOTE | 2022-02-12 08:03 | NUR ---
SW Discharge Note: Patient will be discharged to residential facility to [facility] [address] [place] [address]; ([phone]). Please arrange ambulance transportation. Nurse Practitioner Home Assessments spoke with Priscila, [employer] Truck Driver at [facility] ([phone]) who stated patient will be accepted at facility today. Patient is alert and oriented x3 and not able to plan for care. Patient denies any suicidal or homicidal ideations. Patient is aware and agreeable with discharge plans. Patient does not have any family members at this time. Patient will continue to follow-up with (psychiatrist) Dr. Ortiz located [address] [facility] [address], [place] [address]; ([phone]) and (toy maker) Dr. Rock [address] [facility] [address], [place] [address]; ([phone]). Patient presents with euthymic mood and congruent affect.
[2022-02-12] MEDS: GABAPENTIN 300 MG CAPSULE PO SCH ×2 (08:22→12:35)
[2022-02-12] MEDS: busPIRone 5 MG TABLET PO SCH (08:22)
[2022-02-12] MEDS: ASPIRIN EC 81 MG TABLET.DR PO SCH (08:22)
[2022-02-12] MEDS: TRIHEXYPHENIDYL HCL 2 MG TABLET PO SCH (08:22)
[2022-02-12 08:23] VITALS: BP 135/81
[2022-02-12] MEDS: BUPROPION XL 150 MG TAB.ER.24 PO SCH (08:23)
[2022-02-12] MEDS: GEMFIBROZIL 600 MG TABLET PO SCH (08:23)
[2022-02-12] MEDS: DOCUSATE SODIUM 100 MG CAPSULE PO SCH (08:23)
[2022-02-12] MEDS: AMLODIPINE BESYLATE 5 MG TABLET PO SCH (08:23)
[2022-02-12] MEDS: risperiDONE 1 MG TABLET PO SCH (08:23)
[2022-02-12] MEDS: GUAIFENESIN/D-METHORPHAN HB 5 ML UDC PO PRN (08:38)
--- NOTE | 2022-02-12 09:00 | NUR ---
RN-CO: PATIENT WAS SEEN AND EXAMINED BY DR BROWN AND ORDERED TO DISCONTINUE HOLD AND DISCHARGE PATIENT TODAY TO SNF, NOTED. PATIENT DENIED SUICIDAL AND HOMICIDAL IDEATION, HE DENIED AUDITORY AND VISUAL HALLUCINATION. HE WAS MEDICALLY CLEARED BY DR WHITE TODAY. NO ACUTE DISTRESS NOTED. HE IS CALM AND COOPERATIVE TO CARE, ABLE TO MAKE NEEDS KNOWN. REPORT WAS GIVEN TO ANIRUDH KENNEDY. ALL VALUABLES WILL BE GIVEN BACK TO THE PATIENT.RN DISCUSSED HIS DISCHARGE PAPERS AND PT VERBALIZED UNDERSTANDING.
[2022-02-12] MEDS: CLOTRIMAZOLE 1% 15 GM TUBE TP SCH (09:39)
--- NOTE | 2022-02-12 16:29 | NUR ---
RN-CO: PATIENT WAS PICKED UP BY AMBULANCE AT 1422 WITH ALL VALUABLES AND BELONGINGS GIVEN BACK TO HIM.
[2022-02-13] MEDS ORDERED: LORATADINE 10 MG TABLET PO SCH (09:00)
== END 2022-02-12 16:23 | DRG 885 ==
LOC: ER 18:03 → GPS 20:46
PROVIDERS: ADMIT Nurse Practitioner Psychiatric/Mental Health; ATTEND Internal Medicine
DX: F25.1 Schizoaffective disorder, depressive type (principal); R45.851 Suicidal ideations; F29 Unspecified psychosis not due to a substance or known physiological condition; E87.6 Hypokalemia; F42.9 Obsessive-compulsive disorder, unspecified; Z79.899 Other long term (current) drug therapy; Z79.82 Long term (current) use of aspirin; R79.89 Other specified abnormal findings of blood chemistry; R45.850 Homicidal ideations; Z90.49 Acquired absence of other specified parts of digestive tract; Z91.52 Personal history of nonsuicidal self-harm; Z87.891 Personal history of nicotine dependence; Z98.890 Other specified postprocedural states; R21 Rash and other nonspecific skin eruption; Z88.5 Allergy status to narcotic agent; Z91.013 Allergy to seafood; F12.91 Cannabis use, unspecified, in remission; F14.91 Cocaine use, unspecified, in remission; I10 Essential (primary) hypertension; K59.09 Other constipation; Z20.822 Contact with and (suspected) exposure to COVID-19
CPT/HCPCS: 36415; 80048-TC; 80061-TC; 80076-TC; 82962-TC; 85025-TC; 97112-TC; 97116-TC; C9803; G0480

== ENCOUNTER 2022-04-23 15:42 | Inpatient (IN) | payer MEDICARE, OTHER ==
[~2022-04-23] VITALS: Ht 180.3 cm; Wt 73.0 kg
[~2022-04-23 15:42] MED LIST changes: +AMLO5TAB4 PO; -ASPI-1420 PO; +ATOR20TA PO; +DOCU-141 PO; -GABA-532 PO; +GEMF600T PO; +LACT10SO3 PO; -LISI-658 PO; +OMEG1CAP PO; -PRAZ5CAP2 PO; +SENN-261 PO
[2022-04-23] MEDS ORDERED: CLON0.5T4 PO (16:03)
[2022-04-23] MEDS ORDERED: ASPI-1420 PO (16:03)
[2022-04-23] MEDS ORDERED: LORA10TA68 PO (16:03)
[2022-04-23] MEDS ORDERED: TRIH2TAB3 PO (16:03)
[2022-04-23] MEDS ORDERED: BUPR-54 PO (16:03)
[2022-04-23] MEDS ORDERED: BUSP15TA3 PO (16:03)
[2022-04-23] MEDS ORDERED: GUAI5LIQ10 PO (16:03)
[2022-04-23] MEDS ORDERED: TEMA7.5C PO (16:03)
[2022-04-23] MEDS ORDERED: MAG30ORA PO (16:03)
[2022-04-23] MEDS ORDERED: ACET-868 PO (16:03)
[2022-04-23] MEDS ORDERED: MAGN400O6 PO (16:03)
[2022-04-23] MEDS ORDERED: RISP0.2515 PO (16:03)
[2022-04-23] MEDS ORDERED: ASCO-340 PO (16:03)
[2022-04-23] MEDS ORDERED: IBUP-1955 PO (16:03)
[2022-04-23] MEDS ORDERED: FLUV100T3 PO (16:03)
[2022-04-23] MEDS ORDERED: GABA-532 PO (16:03)
[2022-04-23 16:37] LABS: BASOPHILS % (AUTO) 0.3 % (0.0-2.0); HEMATOCRIT 40 % (39-51); HEMOGLOBIN 12.7 g/dL (13.5-17.5); LYMPHOCYTES # (AUTO) 1.2 K/uL (0.8-4.8); LYMPHOCYTES % (AUTO) 25.7 % (20.0-44.0); MEAN CORPUSCULAR HGB CONC 32 g/dl (31.0-36.0); MEAN CORPUSCULAR VOLUME 87 fL (80-96); MONOCYTES # (AUTO) 0.6 K/uL (0.1-1.30); MONOCYTES % (AUTO) 11.5 % (2.0-12.0); NEUTROPHILS # (AUTO) 2.8 K/uL (1.8-8.9); NEUTROPHILS % (AUTO) 58.5 % (43.0-81.0); PLATELET COUNT (AUTO) 263 K/uL (150-450); RED BLOOD CELL COUNT(AUTO) 4.59 MIL/uL (4.5-6.0); WHITE BLOOD COUNT (AUTO) 4.8 K/uL (4.3-11.0)
[2022-04-23 17:09] LABS: BILIRUBIN,URINE NEGATIVE (NEGATIVE); COLOR,URINE YELLOW (YELLOW); LEUKOCYTE ESTERASE ,URINE NEGATIVE (NEGATIVE); NITRITE, URINE NEGATIVE (NEGATIVE); PROTEIN,URINE NEGATIVE (NEGATIVE); UGLUCOSE NEGATIVE (NEGATIVE); UROBILINOGEN,URINE 0.2 EU/dL (0.2)
--- NOTE | 2022-04-23 18:09 | NUR ---
PAGED DIE MECHANIC
--- NOTE | 2022-04-23 18:38 | NUR ---
ALISA COLLECTED AND SENT
[2022-04-23 18:49] LABS: ALANINE AMINOTRANSFERASE 22 U/L (12-78); ALBUMIN 3.7 g/dL (3.4-5.0); ALKALINE PHOSPHATASE 113 U/L (46-116); ASPARTATE AMINOTRANSFERASE 26 U/L (15-37); BILIRUBIN,DIRECT 0.1 mg/dL (0.0-0.2); BILIRUBIN,TOTAL 0.4 mg/dL (0.2-1.0); CALCIUM, SERUM 9.4 mg/dL (8.5-10.1); CARBON DIOXIDE 25 mmol/L (21-32); CHLORIDE 106 mmol/L (98-107); CREATININE 1.3 mg/dL (0.6-1.3); GLUCOSE 89 mg/dL (74-106); SODIUM SERUM 141 mmol/L (136-145); UREA NITROGEN, BLOOD 14 mg/dL (7-18)
[2022-04-23 19:13] LABS: ACETAMINOPHEN < 10 ug/ml (10-30); ALCOHOL, BLOOD < 3 mg/dL (0-0)
--- NOTE | 2022-04-23 19:44 | NUR ---
BED 212
--- NOTE | 2022-04-23 21:23 | NUR ---
REPORT GIVEN TO EDILBERTO KENNEDY.
[2022-04-23 21:45] VITALS: BP 121/76
--- NOTE | 2022-04-23 21:45 | NUR ---
RN NOTE: ADMITTED A 66-Y/O, MALE, FROM [facility]. ADMITTED ON A 5150 HOLD FOR DTS. PER HOLD, PT ADMITTED DUE TO PT'S FEELING SUICIDAL AND EXPERIENCING HALLUCINATIONS. PATIENT IS THREATENING TO KILL HIMSELF AND REPORTS TO FEEL THOUGH OTHERS ARE PLOTTING AGAINST HIM. UPON FACE TO FACE EVALUATION, PATIENT IS ALERT AND ORIENTED X3-4, PT. IS PARANOID, GUARDED, PREOCCUPIED TO HIS OWN THOUGHTS. PATIENT STATES HE HAS HAVING VISUAL HALLUCINATIONS SEEING SHADOWS AND BRIGHT LIGHTS. PATIENT ALSO STATED HE'S HEARING VOICES FROM THE TV THAT ARE TELLING HIM TO KILL HIMSELF. PT WAS PLACED ON LINE OF SIGHT, [id number] MONITORING FOR SAFETY. SKIN ASSESSMENT DONE. ALL BELONGINGS WERE SCREENED FOR CONTRABAND. PATIENT'S RIGHTS WERE DISCUSSED AND BOOKLET WAS GIVEN. CONTACTED DR. STAFFORD AND HOSPITALIST ION COREAS AND INFORMED THEM OF THE ADMISSION. BED IN LOWEST POSITION, LOCKED. SAFETY PRECAUTIONS MAINTAINED. WILL CONTINUE TO MONITOR Q15 MINS FOR MOOD, SAFETY AND BEHAVIOR.
[2022-04-23] MEDS ORDERED: MAG HYDROX/AL HYDROX/SIMETH 30 ML UDC PO PRN (22:00)
[2022-04-23] MEDS ORDERED: MAGNESIUM HYDROXIDE 30 ML UDC PO PRN (22:00)
[2022-04-23] MEDS ORDERED: BLOOD SUGAR DIAGNOSTIC 1 EACH STRIP IN ONE (22:00)
[2022-04-23] MEDS ORDERED: ACETAMINOPHEN 325 MG TABLET PO PRN (22:00)
[2022-04-24] MEDS ORDERED: MAGNESIUM HYDROXIDE 30 ML UDC PO PRN (01:30)
[2022-04-24] MEDS ORDERED: MAG HYDROX/AL HYDROX/SIMETH 30 ML UDC PO PRN (01:30)
[2022-04-24] MEDS: clonazePAM 0.5 MG TABLET PO PRN ×2 (02:31→20:03)
[2022-04-24 07:32] LABS: CREATININE 1.2 mg/dL (0.6-1.3)
[2022-04-24 07:38] LABS: CHOLESTEROL 127 mg/dL (<200); HDL CHOLESTEROL 46 mg/dL (40-60); LDL 75 mg/dL (0-99); TRIGLYCERIDES 86 mg/dL (30-150)
[2022-04-24] MEDS: PANTOPRAZOLE 40 MG TABLET.DR PO SCH (07:47)
[2022-04-24 08:00] VITALS: BP 107/57
[2022-04-24] MEDS: TRIHEXYPHENIDYL HCL 2 MG TABLET PO SCH (08:50)
[2022-04-24] MEDS: GABAPENTIN 400 MG CAPSULE PO SCH ×3 (08:50→17:25)
[2022-04-24] MEDS: ASCORBIC ACID 500 MG TABLET PO SCH ×2 (08:50→17:25)
[2022-04-24] MEDS: ASPIRIN EC 81 MG TABLET.DR PO SCH (08:50)
[2022-04-24] MEDS: DOCUSATE SODIUM 100 MG CAPSULE PO SCH ×2 (08:50→17:25)
[2022-04-24] MEDS: GEMFIBROZIL 600 MG TABLET PO SCH ×2 (08:50→17:25)
[2022-04-24] MEDS: LORATADINE 10 MG TABLET PO SCH (08:50)
[2022-04-24] MEDS: AMLODIPINE BESYLATE 5 MG TABLET PO SCH (08:52)
[2022-04-24] MEDS ORDERED: BUPROPION XL 150 MG TAB.ER.24 PO SCH (09:00)
--- NOTE | 2022-04-24 10:46 | NUR ---
HERB Initial Discharge: Patient currently resides at [facility] [id number]; ([phone]). HERB spoke with Priscila caldwell who stated that pt is welcomed back. Pt has no supportive contact. HERB will work with the MD, family, and treatment team to help coordinate appropriate discharge.
--- NOTE | 2022-04-24 10:46 | NUR ---
Treatment Plan: Pt refused to sign treatment plan and was anxious/suspicious.
--- NOTE | 2022-04-24 10:46 | NUR ---
HERB Clinical Note: Pt placed on a 5150 hold for danger to himself. Pt had suicidal thoughts at his facility and was wanting to . [place] [address]; ([phone]). HERB spoke with Priscila caldwell who stated that pt is welcomed back. Pt has no supportive contact.
[2022-04-24 16:00] VITALS: BP 110/72
[2022-04-24] MEDS: OLANZAPINE 2.5 MG TABLET PO SCH (19:27)
[2022-04-24 20:24] VITALS: BP 115/57
[2022-04-24] MEDS: FLUVOXAMINE MALEATE 50 MG TABLET PO SCH (21:25)
[2022-04-24] MEDS: ATORVASTATIN 10 MG TABLET PO SCH (21:25)
[2022-04-25 08:00] VITALS: BP 139/86
[2022-04-25] MEDS: PANTOPRAZOLE 40 MG TABLET.DR PO SCH (08:01)
[2022-04-25] MEDS: clonazePAM 0.5 MG TABLET PO PRN ×2 (08:14→17:46)
--- NOTE | 2022-04-25 08:14 | NUR ---
NURSE NOTE: PT ANXIOUS AT THIS TIME. REQUESTED KLONOPIN, KLONOPIN ADMINISTERED ORDERED. PT BELL WELL, WILL CONT TO MONITOR.
[2022-04-25] MEDS: TRIHEXYPHENIDYL HCL 2 MG TABLET PO SCH (08:48)
[2022-04-25] MEDS: LORATADINE 10 MG TABLET PO SCH (08:48)
[2022-04-25] MEDS: AMLODIPINE BESYLATE 5 MG TABLET PO SCH (08:48)
[2022-04-25] MEDS: GEMFIBROZIL 600 MG TABLET PO SCH ×2 (08:48→17:22)
[2022-04-25] MEDS: GABAPENTIN 400 MG CAPSULE PO SCH ×3 (08:48→17:22)
[2022-04-25] MEDS: ASPIRIN EC 81 MG TABLET.DR PO SCH (08:48)
[2022-04-25] MEDS: ASCORBIC ACID 500 MG TABLET PO SCH ×2 (08:48→17:23)
[2022-04-25] MEDS: OLANZAPINE 2.5 MG TABLET PO SCH ×2 (08:48→17:22)
[2022-04-25] MEDS: DOCUSATE SODIUM 100 MG CAPSULE PO SCH ×2 (08:49→17:22)
[2022-04-25] MEDS ORDERED: TRIHEXYPHENIDYL HCL 2 MG TABLET PO ONE ×2 (09:30)
[2022-04-25 16:00] VITALS: BP 117/66
[2022-04-25 20:17] VITALS: BP 120/74
[2022-04-25] MEDS: ATORVASTATIN 10 MG TABLET PO SCH (21:25)
[2022-04-25] MEDS: TEMAZEPAM 7.5 MG CAPSULE PO PRN (21:25)
[2022-04-25] MEDS: FLUVOXAMINE MALEATE 50 MG TABLET PO SCH (21:25)
[2022-04-26 08:00] VITALS: BP 110/70
[2022-04-26] MEDS: TRIHEXYPHENIDYL HCL 2 MG TABLET PO SCH (08:29)
[2022-04-26] MEDS: DOCUSATE SODIUM 100 MG CAPSULE PO SCH ×2 (08:29→16:28)
[2022-04-26] MEDS: ASPIRIN EC 81 MG TABLET.DR PO SCH (08:29)
[2022-04-26] MEDS: GEMFIBROZIL 600 MG TABLET PO SCH ×2 (08:29→16:29)
[2022-04-26] MEDS: GABAPENTIN 400 MG CAPSULE PO SCH ×3 (08:30→16:28)
[2022-04-26] MEDS: OLANZAPINE 2.5 MG TABLET PO SCH ×2 (08:30→16:28)
[2022-04-26] MEDS: AMLODIPINE BESYLATE 5 MG TABLET PO SCH (08:30)
[2022-04-26] MEDS: PANTOPRAZOLE 40 MG TABLET.DR PO SCH (08:30)
[2022-04-26] MEDS: ASCORBIC ACID 500 MG TABLET PO SCH ×2 (08:30→16:29)
[2022-04-26] MEDS: LORATADINE 10 MG TABLET PO SCH (08:30)
[2022-04-26] MEDS: clonazePAM 0.5 MG TABLET PO PRN (12:48)
--- NOTE | 2022-04-26 12:48 | NUR ---
RN-NOTES PATIENT REQUESTING KLONOPIN FOR ANXIETY. KLONOPIN 0.5MG P.O GIVEN PRN ORDER. WILL CONT. MONITORING FOR SAFETY AND BEHAVIOR.
--- NOTE | 2022-04-26 13:50 | NUR ---
RN-NOTES PATIENT LYING IN BED SLEEPING EASILY AROUSED,CALM,NO ACUTE DISTRESS NOTED.
[2022-04-26 16:00] VITALS: BP 129/69
--- NOTE | 2022-04-26 17:49 | NUR ---
RN-NOTES PATIENT VISIBLE IN THE UNIT BUT STAYS MOST THE TIME IN HIS ROOM ,NO ACUTE A/OX3 GUARDED,NO ACUTE DISTRESS NOTED.COMPLIANT WITH MEDICATIONS. ENCOURAGED TO PARTICIPATES WITH THE GROUPS BUT PREFERS TO STAY IN THE ROOM AND REST. AMBULATORY WITH WALKER, ABLE TO MAKE NEEDS KNOWN TO THE STAFF. ALL NEEDS ATTENDED AND ANTICIPATED. WILL CONT. MONITORING FOR SAFETY AND BEHAVIOR.WILL ENDORSE TO INCOMING NURSE FOR THE CONTINUITY OF CARE.
[2022-04-26 20:00] VITALS: BP 96/51
--- NOTE | 2022-04-26 20:00 | NUR ---
RN NOTES: LYING ON HIS BED COMFORTABLY TAKING A NAP, HE WAS AWAKE FOR FEW MINUTES A/0X2-3, HE ASKED FOR SNACKS AND HIS MEDICATION, VERY PLEASANT PERSONALITY, COURTEOUS AND APPRECIATIVE TO CARE RENDERED, AFTER HE EAT HE JUST WENT BACK TO HIS BED AND SLEEP AGAIN, SAFETY PRECAUTION OBSERVED.NO SIGN OF DISCOMFORT OR RESPIRATORY DISTYRESS REMAIN STABLE AND NO BEHAVIORAL CHANGES NOTED.
[2022-04-26] MEDS: FLUVOXAMINE MALEATE 50 MG TABLET PO SCH (21:35)
[2022-04-26] MEDS: ATORVASTATIN 10 MG TABLET PO SCH (21:36)
[2022-04-27 08:00] VITALS: BP 117/71
[2022-04-27] MEDS: PANTOPRAZOLE 40 MG TABLET.DR PO SCH (08:00)
[2022-04-27] MEDS: GABAPENTIN 400 MG CAPSULE PO SCH ×3 (08:13→16:30)
[2022-04-27] MEDS: LORATADINE 10 MG TABLET PO SCH (08:13)
[2022-04-27] MEDS: OLANZAPINE 2.5 MG TABLET PO SCH ×2 (08:13→16:30)
[2022-04-27] MEDS: ASPIRIN EC 81 MG TABLET.DR PO SCH (08:13)
[2022-04-27] MEDS: DOCUSATE SODIUM 100 MG CAPSULE PO SCH ×2 (08:13→16:30)
[2022-04-27] MEDS: ASCORBIC ACID 500 MG TABLET PO SCH ×2 (08:14→16:30)
[2022-04-27] MEDS: GEMFIBROZIL 600 MG TABLET PO SCH ×2 (08:14→16:30)
[2022-04-27] MEDS: AMLODIPINE BESYLATE 5 MG TABLET PO SCH (08:14)
[2022-04-27] MEDS: TRIHEXYPHENIDYL HCL 2 MG TABLET PO SCH (08:14)
--- NOTE | 2022-04-27 10:23 | NUR ---
Court Hearing: Pt has no supportive contact.
--- NOTE | 2022-04-27 10:23 | NUR ---
Court Outcome: Pt court hearing for 5250 was upheld for danger to self and GD.
[2022-04-27 16:00] VITALS: BP 104/69
--- NOTE | 2022-04-27 19:30 | NUR ---
GPS RN NOTE, RECEIVED PATIENT AWAKE AND IN BED, NO S/S OR COMPLAINTS OF PAIN AT THIS TIME. PATIENT IS DISPLAYING NO S/S OF APPARENT DISTRESS AT THIS TIME. PATIENT BREATHING IS UNLABORED WITH EQUAL RISE AND FALL OF THE CHEST. PATIENT IS ALERT AND ORIENTED X 3 ON ROOM AIR WITH A SPO2 99%. PATIENT IS COMPLIANT WITH MEDICATIONS, CALM, PARANOID AT TIMES, POLITE, AND COOPERATIVE. PATIENT DENIES SUICIDAL AND HOMICIDAL IDEATIONS AT THIS TIME. PATIENT ASSISTED WITH TURNING AND REPOSITIONING Q2HR AND PRN FOR COMFORT AND CIRCULATION. PATIENT HAS NO NEEDS AT THIS TIME. PATIENT EDUCATED ON THE USE OF THE CALL MCCLELLAN. PATIENT BED SIDE RAILS UP X 2 FOR SAFETY. PATIENT BED IS LOCKED AND LOW. WILL CONTINUE TO MONITOR THIS PATIENT Q15 MINUTES WITH THE HELP OF STAFF TO MAINTAIN SAFETY.
[2022-04-27 20:00] VITALS: BP 124/84
[2022-04-27] MEDS: FLUVOXAMINE MALEATE 50 MG TABLET PO SCH (21:50)
[2022-04-27] MEDS: ATORVASTATIN 10 MG TABLET PO SCH (21:50)
[2022-04-28 08:00] VITALS: BP 117/72
[2022-04-28] MEDS: OLANZAPINE 2.5 MG TABLET PO SCH ×2 (08:18→16:11)
[2022-04-28] MEDS: GABAPENTIN 400 MG CAPSULE PO SCH ×3 (08:18→16:11)
[2022-04-28] MEDS: AMLODIPINE BESYLATE 5 MG TABLET PO SCH (08:18)
[2022-04-28] MEDS: DOCUSATE SODIUM 100 MG CAPSULE PO SCH ×2 (08:18→16:10)
[2022-04-28] MEDS: LORATADINE 10 MG TABLET PO SCH (08:19)
[2022-04-28] MEDS: PANTOPRAZOLE 40 MG TABLET.DR PO SCH (08:19)
[2022-04-28] MEDS: clonazePAM 0.5 MG TABLET PO PRN ×2 (08:19→18:31)
[2022-04-28] MEDS: ASPIRIN EC 81 MG TABLET.DR PO SCH (08:19)
[2022-04-28] MEDS: TRIHEXYPHENIDYL HCL 2 MG TABLET PO SCH (08:19)
[2022-04-28] MEDS: GEMFIBROZIL 600 MG TABLET PO SCH ×2 (08:19→16:11)
[2022-04-28] MEDS: ASCORBIC ACID 500 MG TABLET PO SCH ×2 (08:21→16:10)
--- NOTE | 2022-04-28 09:23 | NUR ---
RN Notes: Received pt. asleep in bed, breathing is even and unlabored. Pt. refused to eat breakfast and compliant on meds. Pt. said he is suicidal with no specific plan at this time. Encouraged to verbalize feelings and encouraged to call staffs if feels like hurting himself and agreed. Encouraged to take shower and to socialize with peers and staffs. Pt. was asking for Klonopin for anxiety and given. Needs attended and will continue to monitor for safety.
[2022-04-28 16:00] VITALS: BP 101/69
[2022-04-28 18:31] VITALS: BP 114/69
--- NOTE | 2022-04-28 18:31 | NUR ---
Pt. is anxious and requested for a Klonopin prn po. BP 114/69, DE 70
--- NOTE | 2022-04-28 19:15 | NUR ---
GPS RN NOTES RECEIVED LAYING ON HER BED,A/O X3,ABLE TO COMMUNICATE NEEDS,CALM AND RELAX AT THE MOMENT,DENIES AUDITORY/VISUAL HALLUCINATIONS,AMBULATE WITH STEADY GAIT PER REPORT.WILL CONTINUE TO MONITOR BEHAVIOR AND MANAGE ACCORDINGLY. Addendum: 04/28/22 at 2023 by SAUNDRA LIPSCOMB RN male patient,not female.
[2022-04-28 20:00] VITALS: BP 105/63
[2022-04-28] MEDS: ATORVASTATIN 10 MG TABLET PO SCH (21:22)
[2022-04-28] MEDS: FLUVOXAMINE MALEATE 50 MG TABLET PO SCH (21:22)
[2022-04-28] MEDS: TEMAZEPAM 7.5 MG CAPSULE PO PRN (22:45)
--- NOTE | 2022-04-28 22:45 | NUR ---
GPS RN NOTES C/O INSOMNIA,RESTORIL 15MG PO GIVEN ORDERED.
[2022-04-29] MEDS: TRIHEXYPHENIDYL HCL 2 MG TABLET PO SCH (07:52)
[2022-04-29] MEDS: ASCORBIC ACID 500 MG TABLET PO SCH ×2 (07:52→17:22)
[2022-04-29] MEDS: PANTOPRAZOLE 40 MG TABLET.DR PO SCH (07:52)
[2022-04-29] MEDS: OLANZAPINE 2.5 MG TABLET PO SCH ×2 (07:52→17:22)
[2022-04-29] MEDS: LORATADINE 10 MG TABLET PO SCH (07:52)
[2022-04-29] MEDS: GABAPENTIN 400 MG CAPSULE PO SCH ×3 (07:52→17:22)
[2022-04-29] MEDS: AMLODIPINE BESYLATE 5 MG TABLET PO SCH (07:53)
[2022-04-29] MEDS: ASPIRIN EC 81 MG TABLET.DR PO SCH (07:53)
[2022-04-29] MEDS: DOCUSATE SODIUM 100 MG CAPSULE PO SCH ×2 (07:53→17:22)
[2022-04-29] MEDS: GEMFIBROZIL 600 MG TABLET PO SCH ×2 (07:54→17:22)
[2022-04-29 08:00] VITALS: BP 133/72
[2022-04-29] MEDS: clonazePAM 0.5 MG TABLET PO PRN (09:36)
[2022-04-29] MEDS: ACETAMINOPHEN 325 MG TABLET PO PRN ×2 (09:38→17:23)
[2022-04-29 16:00] VITALS: BP 123/79
[2022-04-29 20:18] VITALS: BP 101/62
[2022-04-29] MEDS: ATORVASTATIN 10 MG TABLET PO SCH (21:18)
[2022-04-29] MEDS: FLUVOXAMINE MALEATE 50 MG TABLET PO SCH (21:18)
[2022-04-30] MEDS: PANTOPRAZOLE 40 MG TABLET.DR PO SCH (07:43)
[2022-04-30 08:00] VITALS: BP 113/66
[2022-04-30] MEDS: AMLODIPINE BESYLATE 5 MG TABLET PO SCH (09:00)
[2022-04-30] MEDS: LORATADINE 10 MG TABLET PO SCH (09:34)
[2022-04-30] MEDS: ASPIRIN EC 81 MG TABLET.DR PO SCH (09:35)
[2022-04-30] MEDS: DOCUSATE SODIUM 100 MG CAPSULE PO SCH ×2 (09:35→16:44)
[2022-04-30] MEDS: OLANZAPINE 2.5 MG TABLET PO SCH ×2 (09:35→16:44)
[2022-04-30] MEDS: ASCORBIC ACID 500 MG TABLET PO SCH ×2 (09:35→16:44)
[2022-04-30] MEDS: GEMFIBROZIL 600 MG TABLET PO SCH ×2 (09:35→16:44)
[2022-04-30] MEDS: TRIHEXYPHENIDYL HCL 2 MG TABLET PO SCH (09:35)
[2022-04-30] MEDS: GABAPENTIN 400 MG CAPSULE PO SCH ×3 (09:35→16:44)
[2022-04-30] MEDS: ACETAMINOPHEN 325 MG TABLET PO PRN (09:50)
--- NOTE | 2022-04-30 09:50 | NUR ---
NURSE NOTE: PT C/O PAIN TO FEET AND BACK. UNABLE TO RATE. TYL PO ADMIN ORDERED. PT BELL WELL WILL CONT TO MONITOR.
--- NOTE | 2022-04-30 10:50 | NUR ---
NURSE NOTE: TYL NOT EFFECTIVE. PER PT STILL FEELING PAIN. WILL CONT TO MONITOR.
[2022-04-30] MEDS: clonazePAM 0.5 MG TABLET PO PRN (13:52)
--- NOTE | 2022-04-30 13:52 | NUR ---
NURSE NOTE: PER PT HAVING VISUAL HALLUCINATIONS AND FEELING ANXIOUS. CLONAZEPAM ADMIN ORDERED. PT BELL WELL. WILL CONT TO MONITOR.
--- NOTE | 2022-04-30 14:55 | NUR ---
NURSE NOTE: PT CALM AT THIS TIME. CLONOPIN EFFECTIVE. WILL CONT TO MONITOR.
[2022-04-30 16:00] VITALS: BP 124/75
[2022-04-30] MEDS: IBUPROFEN 400 MG TABLET PO PRN (16:43)
--- NOTE | 2022-04-30 16:45 | NUR ---
NURSE NOTE: PT IN PAIN AT THIS TIME. UNABLE TO RATE. MESSAGED AND HE ORDERED MOTRIN FOR PAIN. MOTRIN ADMIN ORDERED. PT BELL WELL. WILL CONT TO MONITOR.
--- NOTE | 2022-04-30 17:45 | NUR ---
NURSE NOTE: PT RESTING AT THIS TIME. WHEN ASKED FOR PAIN LEVEL HE STATED THAT HE IS STILL SORE. WILL CONT TO MONITOR.
[2022-04-30 20:07] VITALS: BP 105/54
[2022-04-30] MEDS: FLUVOXAMINE MALEATE 50 MG TABLET PO SCH (21:11)
[2022-04-30] MEDS: ATORVASTATIN 10 MG TABLET PO SCH (21:11)
[2022-04-30] MEDS: TEMAZEPAM 7.5 MG CAPSULE PO PRN (22:04)
--- NOTE | 2022-04-30 22:04 | NUR ---
NURSE NOTE: PT REQUESTED MEDICATION FOR SLEEP. TEMAZEPAM PO ADMIN ORDERED. PT BELL WELL. WILL CONT TO MONITOR.
--- NOTE | 2022-04-30 22:50 | NUR ---
NURSE NOTE: PT SLEEPING AT THIS TIME. TEMAZEPAM EFFECTIVE AT THIS TIME. WILL CONT TO MONITOR.
--- NOTE | 2022-05-01 02:00 | NUR ---
CHANGED OF PRIMARY NURSE Care endorsed by MARCIA Souza. Patient in bed, sleeping arouses easily. Cont to monitor for safety and behavior.
--- NOTE | 2022-05-01 06:16 | NUR ---
END OF SHIFT NOTES Patient sleeping, arouses easily. Hours of sleep 8. Patient no agitated behavior during the night. Plan for continue inpatient [facility] hospitalization, Behavior management per Psychiatry. Will endorse to oncoming RN.
[2022-05-01 08:00] VITALS: BP 105/62
[2022-05-01] MEDS: TRIHEXYPHENIDYL HCL 2 MG TABLET PO SCH (08:13)
[2022-05-01] MEDS: ASPIRIN EC 81 MG TABLET.DR PO SCH (08:14)
[2022-05-01] MEDS: LORATADINE 10 MG TABLET PO SCH (08:14)
[2022-05-01] MEDS: PANTOPRAZOLE 40 MG TABLET.DR PO SCH (08:14)
[2022-05-01] MEDS: OLANZAPINE 2.5 MG TABLET PO SCH ×2 (08:15→16:32)
[2022-05-01] MEDS: GABAPENTIN 400 MG CAPSULE PO SCH ×3 (08:15→16:32)
[2022-05-01] MEDS: DOCUSATE SODIUM 100 MG CAPSULE PO SCH ×2 (08:15→16:32)
[2022-05-01] MEDS: AMLODIPINE BESYLATE 5 MG TABLET PO SCH (08:15)
[2022-05-01] MEDS: ASCORBIC ACID 500 MG TABLET PO SCH ×2 (08:15→16:32)
[2022-05-01] MEDS: GEMFIBROZIL 600 MG TABLET PO SCH ×2 (08:16→16:32)
[2022-05-01] MEDS: clonazePAM 0.5 MG TABLET PO PRN ×2 (11:44→22:21)
--- NOTE | 2022-05-01 11:44 | NUR ---
RN- NOTES CLONAZEPAM 0.5MG GIVEN DUE TO INCREASED IRRITATION, AND YELLING AT OTHER RESIDENTS/STAFF. WILL CONTINUE TO MONITOR FOR SAFETY AND BEHAVIOR.
[2022-05-01 16:16] VITALS: BP 131/83
--- NOTE | 2022-05-01 18:53 | NUR ---
RN-NOTES PATIENT VISIBLE IN THE UNIT BUT STAYS MOST THE TIME IN HIS ROOM , A/OX3 GUARDED,NEEDY,NO ACUTE DISTRESS NOTED.COMPLIANT WITH MEDICATIONS. ENCOURAGED TO PARTICIPATES WITH THE GROUPS BUT PREFERS TO STAY IN THE ROOM AND REST. AMBULATORY WITH WALKER, ABLE TO MAKE NEEDS KNOWN TO THE STAFF. ALL NEEDS ATTENDED AND ANTICIPATED. WILL CONT. MONITORING FOR SAFETY AND BEHAVIOR.WILL ENDORSE TO INCOMING NURSE FOR THE CONTINUITY OF CARE.
--- NOTE | 2022-05-01 19:30 | NUR ---
RN NOTES RECEIVED PATIENT LAYING IN BED. PT A/O X3, ABLE TO VERBALIZE NEEDS. PT CALM AT THE MOMENT, DENIES AUDITORY/VISUAL HALLUCINATIONS. ABLE TO AMBULATE WITH STEADY GAIT. WILL CONTINUE TO MONITOR BEHAVIOR AND MANAGE ACCORDINGLY.
[2022-05-01 20:04] VITALS: BP 119/68
[2022-05-01] MEDS: ATORVASTATIN 10 MG TABLET PO SCH (21:55)
[2022-05-01] MEDS: FLUVOXAMINE MALEATE 50 MG TABLET PO SCH (21:56)
[2022-05-01] MEDS: ACETAMINOPHEN 325 MG TABLET PO PRN (21:56)
--- NOTE | 2022-05-01 21:56 | NUR ---
RN NOTE PT REPORTS PAIN TO BLE. TYLENOL GIVEN TO PT.
--- NOTE | 2022-05-01 22:20 | NUR ---
RN NOTE PT C/O ANXIETY, AND RESTLESSNESS. KLONOPIN ADMINISTERED TO PT.
[2022-05-02] MEDS: TEMAZEPAM 7.5 MG CAPSULE PO PRN ×2 (00:52→21:35)
--- NOTE | 2022-05-02 00:52 | NUR ---
RN NOTE PT IS UNABLE TO SLEEP. TEMAZEPAM ADMINISTERED TO PT FOR INSOMNIA.
--- NOTE | 2022-05-02 06:40 | NUR ---
RN NOTES PATIENT SLEEPING IN BED, EASY TO ARISE. A/OX3 GUARDED,NEEDY,NO ACUTE DISTRESS NOTED.COMPLIANT WITH MEDICATIONS. AMBULATORY WITH WALKER, ABLE TO MAKE NEEDS KNOWN TO THE STAFF. ALL NEEDS ATTENDED AND ANTICIPATED.WILL ENDORSE TO INCOMING NURSE FOR THE CONTINUITY OF CARE.
[2022-05-02 08:00] VITALS: BP 118/67
[2022-05-02] MEDS: PANTOPRAZOLE 40 MG TABLET.DR PO SCH (08:14)
[2022-05-02] MEDS: ASPIRIN EC 81 MG TABLET.DR PO SCH (08:47)
[2022-05-02] MEDS: DOCUSATE SODIUM 100 MG CAPSULE PO SCH ×2 (08:47→16:55)
[2022-05-02] MEDS: GEMFIBROZIL 600 MG TABLET PO SCH ×2 (08:47→16:55)
[2022-05-02] MEDS: LORATADINE 10 MG TABLET PO SCH (08:47)
[2022-05-02] MEDS: OLANZAPINE 2.5 MG TABLET PO SCH (08:47)
[2022-05-02] MEDS: GABAPENTIN 400 MG CAPSULE PO SCH ×3 (08:47→16:55)
[2022-05-02] MEDS: ASCORBIC ACID 500 MG TABLET PO SCH ×2 (08:48→16:54)
[2022-05-02] MEDS: TRIHEXYPHENIDYL HCL 2 MG TABLET PO SCH (08:48)
[2022-05-02] MEDS: AMLODIPINE BESYLATE 5 MG TABLET PO SCH (08:48)
[2022-05-02] MEDS: clonazePAM 0.5 MG TABLET PO PRN (09:03)
--- NOTE | 2022-05-02 09:03 | NUR ---
NURSE NOTE: PT AGITATED AND ANXIOUS AT THIS TIME. REQUESTED KLONOPIN AT THIS TIME. KLONOPIN ADMINISTERED ORDERED. PT BELL WELL. WILL CONT TO MONITOR.
--- NOTE | 2022-05-02 10:00 | NUR ---
NURSE NOTE: PT CALM AT THIS TIME. ATIVAN EFFECTIVE. WILL CONT TO MONITOR.
[2022-05-02 16:00] VITALS: BP 101/58
--- NOTE | 2022-05-02 19:30 | NUR ---
GPS RN OPENING NOTE PT RESTING IN BED, VERBALLY RESPONSIVE. A/O X3 AND ABLE TO MAKE NEEDS KNOWN. PT IS ANXIOUS, BUT COOPERATIVE WITH CARE, ISOLATIVE,AND HEARING VOICES FROM TIME TO TIME. PT IN STABLE CONDITION AT THIS TIME, WILL CONTINUE TO MONITOR FOR SAFETY AND BEHAVIOR.
[2022-05-02 20:16] VITALS: BP 101/48
[2022-05-02] MEDS: OLANZAPINE 10 MG TABLET PO SCH (21:35)
[2022-05-02] MEDS: FLUVOXAMINE MALEATE 50 MG TABLET PO SCH (21:35)
[2022-05-02] MEDS: ATORVASTATIN 10 MG TABLET PO SCH (21:35)
--- NOTE | 2022-05-02 21:36 | NUR ---
RN NOTE PT REQUESTED SLEEPING PILL. ADMINISTERED RESTORIL 15 MG FOR INSOMNIA ORDERED. MADE COMFORTABLE IN BED. ALL NEEDS MET AT THIS TIME.
[2022-05-03] MEDS: clonazePAM 0.5 MG TABLET PO PRN ×3 (03:41→17:57)
--- NOTE | 2022-05-03 03:42 | NUR ---
RN NOTE PT COMPLAINED OF ANXIETY AND REQUESTED CLONAZEPAM. ADMINISTERED CLONAZEPAM 0.5 MG FOR ANXIETY ORDERED. PROVIDED BLANKET AND MADE COMFORTABLE IN BED. ALL NEEDS MET AT THIS TIME.
--- NOTE | 2022-05-03 06:50 | NUR ---
GPS RN CLOSING NOTE PT RESTING IN BED, VERBALLY RESPONSIVE. A/O X3 AND ABLE TO MAKE NEEDS KNOWN. PT IS ANXIOUS, BUT COOPERATIVE WITH CARE, ISOLATIVE, AND HEARING VOICES FROM TIME TO TIME. SLEPT 7 HOURS THIS SHIFT. ADMINISTERED RESTORIL AND KLONOPIN PRN ORDERED. PT IN STABLE CONDITION AT THIS TIME. SAFETY PRECAUTIONS IN PLACE AND WILL ENDORSE TO ONCOMING NURSE FOR FRED.
[2022-05-03 08:00] VITALS: BP 112/68
[2022-05-03] MEDS: GEMFIBROZIL 600 MG TABLET PO SCH ×2 (08:08→16:16)
[2022-05-03] MEDS: ASCORBIC ACID 500 MG TABLET PO SCH ×2 (08:09→16:16)
[2022-05-03] MEDS: DOCUSATE SODIUM 100 MG CAPSULE PO SCH ×2 (08:09→16:16)
[2022-05-03] MEDS: LORATADINE 10 MG TABLET PO SCH (08:09)
[2022-05-03] MEDS: GABAPENTIN 400 MG CAPSULE PO SCH ×3 (08:09→16:16)
[2022-05-03] MEDS: OLANZAPINE 2.5 MG TABLET PO SCH (08:09)
[2022-05-03] MEDS: TRIHEXYPHENIDYL HCL 2 MG TABLET PO SCH (08:09)
[2022-05-03] MEDS: ASPIRIN EC 81 MG TABLET.DR PO SCH (08:14)
[2022-05-03] MEDS: PANTOPRAZOLE 40 MG TABLET.DR PO SCH (08:14)
[2022-05-03] MEDS: AMLODIPINE BESYLATE 5 MG TABLET PO SCH (08:15)
--- NOTE | 2022-05-03 08:56 | NUR ---
RN- NOTES CLONAZEPAM 0.5MG ADMINISTERED DUE TO PATIENT STATED THAT HE WAS FEELING ANXIOUS. HE STATED, "I'D LIKE TO TAKE SOMETHING FOR THIS ANXIETY RIGHT NOW."
[2022-05-03 16:00] VITALS: BP 124/74
--- NOTE | 2022-05-03 17:57 | NUR ---
RN NOTE CLONAZEPAM 0.5MG ADMINISTERED TO PATIENT STATED THAT HE WAS FEELING ANXIOUS. HE STATED, "I FEEL VERY ANXIOUS RIGHT NOW, CAN I HAVE KLONOPIN?"
--- NOTE | 2022-05-03 18:34 | NUR ---
GPS RN CLOSING NOTE PATIENT IN BED. A/OX2-3. PT IS ON RA BREATHING EVEN AND NON LABORED. NO S/S OF DISTRESS NOTED AT THIS TIME. DENIES SI/HI AT THIS TIME. PT STATED. PT IS ANXIOUS, DEPRESSED, GUARDED, AND NEEDY.PT IS MED COMPLIANT AND COOPERATIVE. PRN KLONOPIN GIVEN TWICE PER PT REQUEST. SAFETY PRECAUTIONS IN PLACE. WILL ENDORSE TO ONCOMING NURSE FOR FRED.
[2022-05-03 20:00] VITALS: BP 134/64
[2022-05-03] MEDS: OLANZAPINE 10 MG TABLET PO SCH (21:31)
[2022-05-03] MEDS: FLUVOXAMINE MALEATE 50 MG TABLET PO SCH (21:31)
[2022-05-03] MEDS: ATORVASTATIN 10 MG TABLET PO SCH (21:31)
[2022-05-03] MEDS: TEMAZEPAM 7.5 MG CAPSULE PO PRN (22:25)
--- NOTE | 2022-05-03 22:25 | NUR ---
RN NOTE PT ASKING FOR KLONOPIN AND SLEEPING PILLS. INFORMED THAT KLONOPIN IS NOT DUE YET BUT RESTORIL CAN BE GIVEN. PT VERBALIZED UNDERSTANDING.
[2022-05-04] MEDS: clonazePAM 0.5 MG TABLET PO PRN ×3 (02:04→22:56)
--- NOTE | 2022-05-04 02:04 | NUR ---
RN NOTE PT WOKE UP, WENT OUT OF ROOM COMPLAINING THAT HE STILL CANNOT SLEEP. PT SPECIFICALLY REQUESTED KLONOPIN. MED ADMINISTERED PRESCRIBED.
--- NOTE | 2022-05-04 06:37 | NUR ---
GPS RN CLOSING NOTE PATIENT IN BED SLEEPING AT THIS TIME. A/OX2-3. STABLE ON RA BREATHING EVEN AND NON LABORED. NO S/S OF DISTRESS NOTED AT THIS TIME. DENIES SI/HI AT THIS TIME. PT IS ANXIOUS, PARANOID. PT IS MED COMPLIANT AND COOPERATIVE. PRN AMBIEN AND KLONOPIN GIVEN DURING SHIFT. ALL CARE PROVIDED AND MEDS TOLERATED WELL. SAFETY PRECAUTIONS MAINTAINED. WILL ENDORSE TO ONCOMING NURSE FOR FRED.
[2022-05-04 08:00] VITALS: BP 122/73
[2022-05-04] MEDS: GABAPENTIN 400 MG CAPSULE PO SCH ×3 (08:03→16:40)
[2022-05-04] MEDS: GEMFIBROZIL 600 MG TABLET PO SCH ×2 (08:03→16:40)
[2022-05-04] MEDS: OLANZAPINE 2.5 MG TABLET PO SCH (08:03)
[2022-05-04] MEDS: AMLODIPINE BESYLATE 5 MG TABLET PO SCH (08:03)
[2022-05-04] MEDS: DOCUSATE SODIUM 100 MG CAPSULE PO SCH ×2 (08:03→16:40)
[2022-05-04] MEDS: LORATADINE 10 MG TABLET PO SCH (08:03)
[2022-05-04] MEDS: PANTOPRAZOLE 40 MG TABLET.DR PO SCH (08:03)
[2022-05-04] MEDS: TRIHEXYPHENIDYL HCL 2 MG TABLET PO SCH (08:03)
[2022-05-04] MEDS: ASPIRIN EC 81 MG TABLET.DR PO SCH (08:03)
[2022-05-04] MEDS: ASCORBIC ACID 500 MG TABLET PO SCH ×2 (08:03→16:40)
[2022-05-04 16:00] VITALS: BP 112/58
[2022-05-04 20:00] VITALS: BP 105/63
[2022-05-04 20:20] VITALS: BP 105/63
[2022-05-04] MEDS: FLUVOXAMINE MALEATE 50 MG TABLET PO SCH (21:13)
[2022-05-04] MEDS: OLANZAPINE 10 MG TABLET PO SCH (21:13)
[2022-05-04] MEDS: ATORVASTATIN 10 MG TABLET PO SCH (21:13)
--- NOTE | 2022-05-04 21:53 | NUR ---
RECEIVED PATIENT IN BED, ALERT/ORIENTED X3, ROOM AIR, NO COMPLAIN OF PAIN, AMBULATES WITH WALKER, CALM, COOPERATIVE, TOOK ALL PM MEDS, GIVEN SNACKS, WILL CONTINUE TO MONITOR FOR SAFETY
--- NOTE | 2022-05-04 23:00 | NUR ---
PATIENT REQUESTED KLONOPIN, MEDICATION GIVEN, WILL MONITOR FOR BEHAVIOR
[2022-05-05] MEDS: TEMAZEPAM 7.5 MG CAPSULE PO PRN (01:23)
--- NOTE | 2022-05-05 06:04 | NUR ---
ALERT/ORIENTED X3, ROOM AIR, NO COMPLAIN OF PAIN, AMBULATES USING WALKER, RESTLESS AT TIMES, COOPERATIVE, TOOK ALL PM MEDS, GIVEN KLONOPIN AND RESTORIL PRN, EATING WELL, REQUESTED SNACKS.
[2022-05-05 08:00] VITALS: BP 112/68
[2022-05-05] MEDS: TRIHEXYPHENIDYL HCL 2 MG TABLET PO SCH (08:03)
[2022-05-05] MEDS: GEMFIBROZIL 600 MG TABLET PO SCH ×2 (08:03→16:23)
[2022-05-05] MEDS: GABAPENTIN 400 MG CAPSULE PO SCH (08:03)
[2022-05-05] MEDS: ASPIRIN EC 81 MG TABLET.DR PO SCH (08:03)
[2022-05-05] MEDS: DOCUSATE SODIUM 100 MG CAPSULE PO SCH ×2 (08:03→16:23)
[2022-05-05] MEDS: ASCORBIC ACID 500 MG TABLET PO SCH ×2 (08:03→16:23)
[2022-05-05] MEDS: PANTOPRAZOLE 40 MG TABLET.DR PO SCH (08:03)
[2022-05-05] MEDS: LORATADINE 10 MG TABLET PO SCH (08:03)
[2022-05-05] MEDS: AMLODIPINE BESYLATE 5 MG TABLET PO SCH (08:04)
[2022-05-05] MEDS: OLANZAPINE 2.5 MG TABLET PO SCH (08:15)
[2022-05-05] MEDS: GABAPENTIN 300 MG CAPSULE PO SCH ×2 (12:49→16:23)
[2022-05-05] MEDS: IBUPROFEN 400 MG TABLET PO PRN (13:47)
[2022-05-05 16:00] VITALS: BP 100/60
[2022-05-05 20:00] VITALS: BP_SYST 104; BP_SYST 109; BP_DIAS 54
[2022-05-05] MEDS: OLANZAPINE 10 MG TABLET PO SCH (22:00)
[2022-05-05] MEDS: ATORVASTATIN 10 MG TABLET PO SCH (22:01)
[2022-05-05] MEDS: FLUVOXAMINE MALEATE 50 MG TABLET PO SCH (22:01)
[2022-05-05] MEDS: clonazePAM 0.5 MG TABLET PO PRN (22:35)
[2022-05-06] MEDS: TEMAZEPAM 7.5 MG CAPSULE PO PRN (03:17)
--- NOTE | 2022-05-06 03:45 | NUR ---
Closing Notes: alert and orientated X3 Restoril / Kloopin given PRN and effective ambulates the hallway with walker speech clear cooperative c/o neuropathy in his feet stated he has had this before took medication as ordered w/o problems
[2022-05-06] MEDS: clonazePAM 0.5 MG TABLET PO PRN ×2 (05:04→13:39)
[2022-05-06 08:00] VITALS: BP 119/73
[2022-05-06] MEDS: PANTOPRAZOLE 40 MG TABLET.DR PO SCH (08:32)
[2022-05-06] MEDS: ASPIRIN EC 81 MG TABLET.DR PO SCH (08:59)
[2022-05-06] MEDS: GABAPENTIN 300 MG CAPSULE PO SCH ×3 (08:59→16:03)
[2022-05-06] MEDS: OLANZAPINE 2.5 MG TABLET PO SCH (08:59)
[2022-05-06] MEDS: AMLODIPINE BESYLATE 5 MG TABLET PO SCH (08:59)
[2022-05-06] MEDS: TRIHEXYPHENIDYL HCL 2 MG TABLET PO SCH (08:59)
[2022-05-06] MEDS: DOCUSATE SODIUM 100 MG CAPSULE PO SCH ×2 (08:59→16:03)
[2022-05-06] MEDS: ASCORBIC ACID 500 MG TABLET PO SCH ×2 (09:00→16:03)
[2022-05-06] MEDS: LORATADINE 10 MG TABLET PO SCH (09:00)
[2022-05-06] MEDS: GEMFIBROZIL 600 MG TABLET PO SCH ×2 (09:00→16:04)
--- NOTE | 2022-05-06 13:40 | NUR ---
NURSE NOTE: PT STATEDF THAT HE IS FEELING ANXIOUS AT THIS TIME. REQUESTED KLONOPIN. KLONOPIN PO ADMIN ORDERED. PT BELL WELL. WILL CONT TO MONITOR.
--- NOTE | 2022-05-06 14:40 | NUR ---
NURSE NOTE: PT CALM AT THIS TIME. SAYS HE IS FEELING BETTER. KLONOPIN EFFECTIVE AT THIS TIME. WILL CONT TO MONITOR.
[2022-05-06 16:00] VITALS: BP 103/57
[2022-05-06 20:19] VITALS: BP 115/64
[2022-05-06] MEDS: ATORVASTATIN 10 MG TABLET PO SCH (21:05)
[2022-05-06] MEDS: OLANZAPINE 10 MG TABLET PO SCH (21:05)
[2022-05-06] MEDS: FLUVOXAMINE MALEATE 50 MG TABLET PO SCH (21:05)
[2022-05-07] MEDS: IBUPROFEN 400 MG TABLET PO PRN ×2 (00:02→16:42)
[2022-05-07] MEDS: TEMAZEPAM 7.5 MG CAPSULE PO PRN (00:02)
--- NOTE | 2022-05-07 00:03 | NUR ---
RN NOTE PATIENT C/O 5/10 RIGHT LEG PAIN. MOTRIN 400 MG PO GIVEN ORDERED. PT ALSO REQUESTING SLEEPING MEDICATION, RESTORIL 15 MG GIVEN ORDERED
[2022-05-07] MEDS: clonazePAM 0.5 MG TABLET PO PRN ×3 (01:54→18:30)
--- NOTE | 2022-05-07 01:57 | NUR ---
RN NOTE PATIENT FEELING ANXIOUS, REQUESTED KLONOPIN, MEDICATION GIVEN ORDERED
--- NOTE | 2022-05-07 06:34 | NUR ---
RN CLOSING NOTE PATIENT SLEEPING AT THIS TIME, PT ALERT/ORIENTED X 3, PT ABLE TO MAKE NEEDS KNOWN. PT WAS GUARDED BUT CALM, COOPERATIVE AND MED COMPLIANT THIS SHIFT. PATIENT REQUESTED SEVERAL PRN'S FOR PAIN, INSOMNIA AND ANXIETY, MEDICATIONS GIVEN ORDERED. PATIENT DENIES SI/HI THIS SHIFT. PATIENT SLEPT WELL, NO SIGNIFICANT CHANGES THIS SHIFT, NO BEHAVIORAL ISSUES. PATIENT AMBULATORY WITH FWW. SAFETY MEASURES MAINTAINED. WILL ENDORSE TO DAYSHIFT RN FOR CONTINUITY OF CARE
[2022-05-07] MEDS: PANTOPRAZOLE 40 MG TABLET.DR PO SCH (07:42)
[2022-05-07 08:00] VITALS: BP 132/82
[2022-05-07] MEDS: DOCUSATE SODIUM 100 MG CAPSULE PO SCH ×2 (08:31→17:33)
[2022-05-07] MEDS: ASCORBIC ACID 500 MG TABLET PO SCH ×2 (08:31→17:33)
[2022-05-07] MEDS: GABAPENTIN 300 MG CAPSULE PO SCH ×3 (08:31→17:34)
[2022-05-07] MEDS: OLANZAPINE 2.5 MG TABLET PO SCH (08:32)
[2022-05-07] MEDS: ASPIRIN EC 81 MG TABLET.DR PO SCH (08:32)
[2022-05-07] MEDS: LORATADINE 10 MG TABLET PO SCH (08:32)
[2022-05-07] MEDS: GEMFIBROZIL 600 MG TABLET PO SCH ×2 (08:33→17:33)
[2022-05-07] MEDS: TRIHEXYPHENIDYL HCL 2 MG TABLET PO SCH (08:33)
[2022-05-07] MEDS: AMLODIPINE BESYLATE 5 MG TABLET PO SCH (08:36)
--- NOTE | 2022-05-07 12:24 | NUR ---
NURSE NOTE: PT C/O ANXIETY. REQUESTED KLONOPIN AT THIS TIME. KLONOPIN PO ADMIN ORDERED. PT BELL WELL. WILL CONT TO MONITOR.
--- NOTE | 2022-05-07 13:24 | NUR ---
NURSE NOTE: PT SAYS THAT HE FEELS MUCH BETTER. ATIVAN EFFECTIVE AT THIS TIME. WILL CONT TO MONITOR.
[2022-05-07 16:00] VITALS: BP 125/84
--- NOTE | 2022-05-07 18:25 | NUR ---
NURSE NOTE: PT C/O ANXIETY. REQUESTED KLONOPIN AT THIS TIME. KLONOPIN PO ADMIN ORDERED. PT BELL WELL. WILL CONT TO MONITOR.
[2022-05-07 20:16] VITALS: BP 101/54
[2022-05-07] MEDS: FLUVOXAMINE MALEATE 50 MG TABLET PO SCH (21:08)
[2022-05-07] MEDS: ATORVASTATIN 10 MG TABLET PO SCH (21:08)
[2022-05-07] MEDS: OLANZAPINE 10 MG TABLET PO SCH (21:08)
[2022-05-08] MEDS: clonazePAM 0.5 MG TABLET PO PRN ×2 (02:22→10:19)
[2022-05-08] MEDS: ACETAMINOPHEN 325 MG TABLET PO PRN (03:21)
--- NOTE | 2022-05-08 07:25 | NUR ---
GPS RN OPENING NOTE RECEIVED LYING AWAKE IN BED. A/O X2-3, ANXIOUS, HIDING UNDER THE BLANKETS, ISOLATIVE, ON ROOM AIR BREATHING WITHOUT DIFFICULTY, NOT IN ANY ACUTE DISTRESS AT THIS TIME. DENIES PAIN NOR DISCOMFORT, SAFETY PRECAUTIONS IN PLACE. WILL CONTINUE TO MONITOR FOR SAFETY AND ANY BEHAVIORAL CHANGES.
[2022-05-08] MEDS: PANTOPRAZOLE 40 MG TABLET.DR PO SCH (07:44)
[2022-05-08 08:00] VITALS: BP 105/57
--- NOTE | 2022-05-08 08:06 | NUR ---
SW Discharge Note: Patient will be discharged to [facility] facility to [facility] [address] [place] [address]; ([phone]). Please arrange ambulance transportation. Cost Consultant spoke with Priscila, Firefighter [employer] at [facility] ([phone]) who stated patient will be accepted at facility today. Patient is alert and oriented x3 and not able to plan for care. Patient denies any suicidal or homicidal ideations. Patient is aware and agreeable with discharge plans. Patient does not have any family members at this time. Patient will continue to follow-up with (psychiatrist) Dr. Ortiz located [address] [facility] [address], [place] [address]; ([phone]) and (fundraiser) Dr. Rock [address] [facility] [address] [address]; ([phone]). Patient presents with euthymic mood and congruent affect.
[2022-05-08] MEDS: ASCORBIC ACID 500 MG TABLET PO SCH (08:30)
[2022-05-08] MEDS: ASPIRIN EC 81 MG TABLET.DR PO SCH (08:30)
[2022-05-08] MEDS: DOCUSATE SODIUM 100 MG CAPSULE PO SCH (08:30)
[2022-05-08] MEDS: LORATADINE 10 MG TABLET PO SCH (08:30)
[2022-05-08] MEDS: GEMFIBROZIL 600 MG TABLET PO SCH (08:31)
[2022-05-08] MEDS: OLANZAPINE 2.5 MG TABLET PO SCH (08:31)
[2022-05-08] MEDS: TRIHEXYPHENIDYL HCL 2 MG TABLET PO SCH (08:31)
[2022-05-08] MEDS: GABAPENTIN 300 MG CAPSULE PO SCH ×2 (08:31→12:09)
[2022-05-08] MEDS: AMLODIPINE BESYLATE 5 MG TABLET PO SCH (08:31)
--- NOTE | 2022-05-08 10:22 | NUR ---
RN NOTES - PATIENT REQUESTING MED FOR ANXIETY - GIVEN CLONAZEPAM 0.5 MG 1 TAB FOR ANXIETY. WILL CONTINUE TO MONITOR.
--- NOTE | 2022-05-08 12:18 | NUR ---
RN NOTES - PT IS CLAIMING HE DIDNT HAVE ANY BM SINCE THURSDAY 05/04, CALLED SNF AND THEY WONT ACCEPT THE PATIENT UNTIL HE GOES, TRANSPORT HAS BEEN MOVED TO [facility], GAVE PT 4 PRUNE JUICES HE REQUESTED, MILK OF MAGNESIA PRN WAS ALSO GIVEN AND ORDERED FLEET ENEMA PRN, WILL ADMINISTER.
[2022-05-08] MEDS ORDERED: NA PHOS,M-B/NA PHOS,DI-BA 1 EA ENEMA RC PRN (12:30)
--- NOTE | 2022-05-08 14:00 | NUR ---
RN NOTES - PT WAS ABLE TO PASS STOOL, CALLED SNF AND SPOKE TO MARCIA MCMULLEN -ACCEPTED THE PATIENT. PT IS AWARE OF PICK-UP AT 1500.
[2022-05-08 15:00] VITALS: BP 115/72
--- NOTE | 2022-05-08 15:22 | NUR ---
GPS LEARNING MANAGER NOTE PT DISCHARGED TO [facility] IN STABLE CONDITION. PT AOX3, ABLE TO MAKE NEEDS KNOWN. ON ROOM AIR, BREATHING WITHOUT DIFFICULTY. NO SOB NOTED, NOT IN ANY SIGNS OF RESPIRATORY DISTRESS. PT DENIED SI/HI AND AVH, DIDN'T SHOW ANY DISRUPTIVE BEHAVIOR. VITAL SIGNS TAKEN, STABLE, RECORDED. SKIN IS INTACT. ALL BELONGINGS ACCOUNTED FOR AND FORM SIGNED. PT DENIED PAIN NOR DISCOMFORT AT THIS MOMENT. DISCHARGE INSTRUCTIONS GIVEN TO SNF MARCIA MCMULLEN, LETITIA LIST SENT WITH THE PT. NO IV ACCESS. PT LEFT THE UNIT AT 1515 ACCOMPANIED BY 2 RECREATION FACILITY MANAGER. MD AND CHARGE NURSE AWARE OF THE DC.
[2022-05-08] MEDS ORDERED: OLANZAPINE 10 MG TABLET PO SCH (22:00)
== END 2022-05-08 15:15 | DRG 885 ==
LOC: ER 15:44 → GPS 20:50
PROVIDERS: ADMIT Nurse Practitioner Psychiatric/Mental Health; ATTEND Nurse Practitioner Acute Care
DX: F20.0 Paranoid schizophrenia (principal); F02.82 Dementia in other diseases classified elsewhere, unspecified severity, with psychotic disturbance; R45.851 Suicidal ideations; F02.83 Dementia in other diseases classified elsewhere, unspecified severity, with mood disturbance; N39.0 Urinary tract infection, site not specified; F32.9 Major depressive disorder, single episode, unspecified; F29 Unspecified psychosis not due to a substance or known physiological condition; F42.9 Obsessive-compulsive disorder, unspecified; E78.5 Hyperlipidemia, unspecified; G20 Parkinson's disease; E11.42 Type 2 diabetes mellitus with diabetic polyneuropathy; Z90.49 Acquired absence of other specified parts of digestive tract; Z98.890 Other specified postprocedural states; Z91.81 History of falling; Z88.5 Allergy status to narcotic agent; Z91.013 Allergy to seafood; Z79.82 Long term (current) use of aspirin; Z79.899 Other long term (current) drug therapy; F41.9 Anxiety disorder, unspecified; N40.0 Benign prostatic hyperplasia without lower urinary tract symptoms; Z91.51 Personal history of suicidal behavior; F12.90 Cannabis use, unspecified, uncomplicated; R53.1 Weakness; F14.90 Cocaine use, unspecified, uncomplicated; R27.8 Other lack of coordination; E03.9 Hypothyroidism, unspecified; I10 Essential (primary) hypertension; Z87.891 Personal history of nicotine dependence; Z86.59 Personal history of other mental and behavioral disorders
CPT/HCPCS: 36415; 80048-TC; 80061-TC; 80076-TC; 82565-TC; 82962-TC; 84703-TC; 85025-TC; 87081-TC; C9803; G0480

== ENCOUNTER 2022-05-29 11:51 | Inpatient (IN) | payer MEDICARE, OTHER ==
[~2022-05-29] VITALS: Ht 180.3 cm; Wt 79.4 kg
[~2022-05-29 11:51] MED LIST changes: +ACET-868 PO; +ASCO-340 PO; +ASPI-1420 PO; +BUPR-54 PO; +BUSP15TA3 PO; +CLON0.5T4 PO; +FLUV100T3 PO; +GABA-532 PO; +GUAI5LIQ10 PO; +IBUP-1955 PO; -LACT10SO3 PO; +LORA10TA68 PO; +MAG30ORA PO; +MAGN400O6 PO; -OMEG1CAP PO; +RISP0.2515 PO; -SENN-261 PO; +TEMA7.5C PO; +TRIH2TAB3 PO
--- NOTE | 2022-05-29 11:55 | NUR ---
SERA ROSSI FROM SNF C/O ABDOMINAL PAIN 10/04 AND FOR MEDICAL CLEARANCE AND STATED HE WANTED TO KILL HIMSELF AND IS PARANOID. PLACED IN BED, AWAKE ALERT RESPONDS TO QUESTIONS, ADMITS WANTS TO CUT HIS WRIST. WILL CONTINUE TO MONITOR AND OBSERVED.
--- NOTE | 2022-05-29 12:17 | NUR ---
SWAB FOR COVID19 SENT TO LAB
--- NOTE | 2022-05-29 12:25 | NUR ---
SURFBOARD DESIGNER AT BEDSIDE
[2022-05-29 12:31] LABS: BASOPHILS % (AUTO) 0.5 % (0.0-2.0); EOSINOPHILS % (AUTO) 3.3 % (0.0-6.0); HEMATOCRIT 41 % (39-51); HEMOGLOBIN 13.3 g/dL (13.5-17.5); LYMPHOCYTES % (AUTO) 21.1 % (20.0-44.0); MEAN CORPUSCULAR HGB CONC 33 g/dl (31.0-36.0); MEAN CORPUSCULAR VOLUME 85 fL (80-96); MONOCYTES # (AUTO) 0.7 K/uL (0.1-1.30); MONOCYTES % (AUTO) 13.6 % (2.0-12.0); NEUTROPHILS % (AUTO) 61.5 % (43.0-81.0); PLATELET COUNT (AUTO) 260 K/uL (150-450); WHITE BLOOD COUNT (AUTO) 4.9 K/uL (4.3-11.0)
[2022-05-29 12:38] LABS: CARBON DIOXIDE 26 mmol/L (21-32); CHLORIDE 107 mmol/L (98-107); CREATININE 1.3 mg/dL (0.6-1.3); GLUCOSE 99 mg/dL (74-106); SODIUM SERUM 138 mmol/L (136-145); UREA NITROGEN, BLOOD 23 mg/dL (7-18)
[2022-05-29 12:43] LABS: ALANINE AMINOTRANSFERASE 21 U/L (12-78); ALBUMIN 3.6 g/dL (3.4-5.0); ALCOHOL, BLOOD < 3 mg/dL (0-0); ALKALINE PHOSPHATASE 96 U/L (46-116); ASPARTATE AMINOTRANSFERASE 20 U/L (15-37); BILIRUBIN,DIRECT 0.1 mg/dL (0.0-0.2); BILIRUBIN,TOTAL 0.3 mg/dL (0.2-1.0); TOTAL PROTEIN, SERUM 7.9 g/dL (6.4-8.2)
[2022-05-29 12:44] LABS: ACETAMINOPHEN < 10 ug/ml (10-30)
[2022-05-29] MEDS ORDERED: NA P133E RC (13:13)
[2022-05-29] MEDS ORDERED: OLAN10TA3 PO (13:13)
--- NOTE | 2022-05-29 14:02 | NUR ---
REPORT GIVEN TO CAILIN RN ROOM 220-A FOR FRED
--- NOTE | 2022-05-29 14:13 | NUR ---
URINE SAMPLE SENT TO LAB
--- NOTE | 2022-05-29 14:14 | NUR ---
PATIENT ON HOLD 5150 FORMS FILLED AND SIGNED BY LONA COVINGTON
[2022-05-29 14:39] LABS: BILIRUBIN,URINE Negative (NEGATIVE); COLOR,URINE YELLOW (YELLOW); LEUKOCYTE ESTERASE ,URINE Negative (NEGATIVE); NITRITE, URINE Negative (NEGATIVE); PH,URINE 6.5 (5.0-8.0); PROTEIN,URINE Negative (NEGATIVE); UGLUCOSE Negative (NEGATIVE); UROBILINOGEN,URINE 0.2 EU/dL (0.2)
--- NOTE | 2022-05-29 15:15 | NUR ---
RN- ADMISSION NOTE PATIENT IS A 66 YEAR OLD MALE, ADMITTED FROM [facility], PLACED ON A 5150 FOR DTS. PER HOLD, "PATIENT IS SUICIDAL WITH A PLAN TO OVERDOSE OR CUT SELF, HE SEES BEES COMING AT HIM AND BELIEVES HE HAS BEE STINGS ALL OVER HIS BODY. HE HEARS VOICES STATING THEY ARE GOING TO KILL HIM. HE FEELS PARANOID." UPON FACE TO FACE ASSESSMENT, PATIENT IS ALERT AND ORIENTED X2, WELL GROOMED, CLEAR SPEECH, DENIES SI/HI AND AUDITORY/VISUAL HALLUCINATIONS AT THIS TIME. PATIENT IS ANXIOUS, GUARDED, RESTLESS, DEPRESSED, ISOLATIVE, AND DISORIENTED. VITAL SIGNS TAKEN, B/P 132/80, P 78, R 19, T 97.7, O2 SAT 97% ON ROOM AIR. CONTACTED DR. GARCIA AND DR. GAN AND INFORMED THEM OF THE ADMISSION WITH PSYCHIATRIC ADMITTING ORDERS.
[2022-05-29 16:55] VITALS: BP 132/80
[2022-05-29] MEDS: LORAZEPAM 1 MG TABLET PO PRN (17:02)
--- NOTE | 2022-05-29 17:02 | NUR ---
PT C/O ANXIETY ATIVAN 1MG WAS GIVEN. WILL CONTINUE TO MONITOR.
--- NOTE | 2022-05-29 18:32 | NUR ---
PT NO LONGER ANXIOUS ATIVAN 1MG EFFECTIVE. WILL CONTINUE TO MONITOR.
[2022-05-29 20:15] VITALS: BP 122/86
[2022-05-30 08:00] VITALS: BP 137/86
--- NOTE | 2022-05-30 08:53 | NUR ---
HERB Clinical Note: Pt placed on a 5150 hold for danger to self. Pt is from [facility] [place] and has been having hallucinations at the facility that bees are stinging him. [place] [address]; ([phone]). HERB spoke with Priscila Collado who stated pt is welcomed back.
--- NOTE | 2022-05-30 08:53 | NUR ---
Treatment Plan: Pt refused to sign treatment plan and was anxious.
--- NOTE | 2022-05-30 08:53 | NUR ---
HERB Initial Discharge Note: Patient currently resides at [facility] [address] [place], [place] [id number]; ([phone]). HERB spoke with Priscila Collado whostated pt is welcomed back. HERB will work with the MD, family, and pt tohelp coordinate appropriate discharge.
[2022-05-30] MEDS: LORAZEPAM 1 MG TABLET PO PRN (12:49)
--- NOTE | 2022-05-30 12:50 | NUR ---
NURSE NOTE: PT ANXIOUS AT THIS TIME. STATED THAT HE IS HEARING VOICES THAT MAKE HIM THINK THINGS HE DOESN'T LIKE. ATIVAN PO ADMINISTERED ORDERED. PT BELL WELL. WILL CONT TO MONITOR.
--- NOTE | 2022-05-30 13:45 | NUR ---
NURSE NOTE: PT CALM AT THIS TIME. ATIVAN EFFECTIVE AT THIS TIME. WILL CONT TO MONITOR.
[2022-05-30 16:00] VITALS: BP 133/72
[2022-05-30] MEDS: OLANZAPINE 10 MG TABLET PO SCH (16:57)
[2022-05-30] MEDS ORDERED: ACETAMINOPHEN 325 MG TABLET PO PRN ×2 (17:00→17:30)
[2022-05-30] MEDS: DOCUSATE SODIUM 100 MG CAPSULE PO SCH (17:41)
[2022-05-30] MEDS: GABAPENTIN 100 MG CAPSULE PO SCH (17:42)
[2022-05-30] MEDS: GEMFIBROZIL 600 MG TABLET PO SCH (17:42)
--- NOTE | 2022-05-30 19:20 | NUR ---
RN notes Received Pt from morning nurse. Pt is ambulating in the hallway with a walker. Pt is alert and orientedX2-3, calm, quiet and cooperative. On room air. No SOB. No S/S of distress noted. No SOB. Reality orientation provided. Snacks and juice are given and provided. Safety precautions is maintained. Will continue to monitor Q 15 mins checks for safety and behavior.
--- NOTE | 2022-05-30 19:44 | NUR ---
RN notes Pt is having heartburn and requesting meds. Informed and notify Dr. Vallejo. ordered tums/po/Q 6hr/prn. Order carry out.
[2022-05-30] MEDS: CALCIUM CARBONATE 500 MG TAB.CHEW PO PRN (19:57)
--- NOTE | 2022-05-30 19:58 | NUR ---
RN notes Pt is having a heartburn and requesting med. administered tums 500mg/1 tab/po/prn as ordered.
[2022-05-30 21:01] VITALS: BP 119/68
[2022-05-30] MEDS: FLUVOXAMINE MALEATE 50 MG TABLET PO SCH (21:24)
[2022-05-30] MEDS: ATORVASTATIN 10 MG TABLET PO SCH (21:24)
[2022-05-31 08:00] VITALS: BP 114/65
[2022-05-31] MEDS: OLANZAPINE 10 MG TABLET PO SCH ×2 (08:37→17:00)
[2022-05-31] MEDS: PANTOPRAZOLE 40 MG TABLET.DR PO SCH (08:37)
[2022-05-31] MEDS: GABAPENTIN 100 MG CAPSULE PO SCH ×3 (08:37→17:00)
[2022-05-31] MEDS: DOCUSATE SODIUM 100 MG CAPSULE PO SCH ×2 (08:37→17:00)
[2022-05-31] MEDS: GEMFIBROZIL 600 MG TABLET PO SCH ×2 (08:37→17:01)
[2022-05-31] MEDS: ASCORBIC ACID 500 MG TABLET PO SCH (08:40)
[2022-05-31] MEDS: LORATADINE 10 MG TABLET PO SCH (08:40)
[2022-05-31] MEDS: AMLODIPINE BESYLATE 5 MG TABLET PO SCH (08:40)
[2022-05-31] MEDS: ASPIRIN EC 81 MG TABLET.DR PO SCH (08:40)
[2022-05-31 16:00] VITALS: BP 115/72
[2022-05-31] MEDS: GUAIFENESIN/D-METHORPHAN HB 5 ML UDC PO PRN (17:24)
--- NOTE | 2022-05-31 17:24 | NUR ---
RN-NOTES NOTED PATIENT COUGHING,ROBITUSSIN DM 5ML GIVEN PRN ORDER.
--- NOTE | 2022-05-31 17:59 | NUR ---
RN-NOTES PATIENT IS VISIBLE IN THE UNIT ,GUARDED,A/O X3 AMBULATORY WITH WALKER.NO ACUTE DISTRESS NOTED. COMPLIANT WITH MEDICATIONS. PATIENT ABLE TO MAKE NEEDS KNOWN TPO THE STAFF. REFUSED TO PARTICIPATES WITH THE GROUP,PREFERS TO STAY IN THE ROOM AND REST.AMBULATORY WITH WALKER. ALL NEEDS ATTENDED AND ANTICIPATED. WILL CONT. MONITORING FOR SAFETY AND BEHAVIOR. Addendum: 05/31/22 at 1804 by ENZO RIVERA RN WILL ENDORSE TO THE INCOMING NURSE FOR THEW CONTINUITY OF CARE.
--- NOTE | 2022-05-31 19:54 | NUR ---
LINE RIDER NOTES: RECEIVED RESIDENT RESTING IN BED,GUARDED,A/O X3 AMBULATORY WITH WALKER.NO ACUTE DISTRESS NOTED.BREATHING EVEN AND NON-LABORED.COMPLIANT WITH MEDICATIONS.PATIENT ABLE TO MAKE NEEDS KNOWN,TPO THE STAFF. ALL NEEDS ATTENDED AND ANTICIPATED. WILL CONT. MONITORING FOR SAFETY AND BEHAVIOR.
[2022-05-31 20:59] VITALS: BP 141/77
[2022-05-31] MEDS: ATORVASTATIN 10 MG TABLET PO SCH (21:29)
[2022-05-31] MEDS: FLUVOXAMINE MALEATE 50 MG TABLET PO SCH (21:29)
[2022-06-01 08:00] VITALS: BP 120/75
[2022-06-01] MEDS: GUAIFENESIN/D-METHORPHAN HB 5 ML UDC PO PRN ×2 (08:01→12:43)
[2022-06-01] MEDS: ASPIRIN EC 81 MG TABLET.DR PO SCH (08:01)
[2022-06-01] MEDS: AMLODIPINE BESYLATE 5 MG TABLET PO SCH (08:02)
[2022-06-01] MEDS: LORATADINE 10 MG TABLET PO SCH (08:02)
[2022-06-01] MEDS: ASCORBIC ACID 500 MG TABLET PO SCH (08:02)
[2022-06-01] MEDS: GEMFIBROZIL 600 MG TABLET PO SCH ×2 (08:02→16:24)
[2022-06-01] MEDS: OLANZAPINE 10 MG TABLET PO SCH ×2 (08:02→16:24)
[2022-06-01] MEDS: GABAPENTIN 100 MG CAPSULE PO SCH ×3 (08:02→16:24)
[2022-06-01] MEDS: PANTOPRAZOLE 40 MG TABLET.DR PO SCH (08:02)
[2022-06-01] MEDS: DOCUSATE SODIUM 100 MG CAPSULE PO SCH ×2 (08:02→16:24)
--- NOTE | 2022-06-01 09:30 | NUR ---
RN Notes: Received pt. awake in bed, responsive to staffs. Pt. ate 50% for breakfast and compliant on meds. Pt. is coughing and prn med given. Encouraged to verbalize feelings and motivated to attend group activity. Needs attended and will continue to monitor for safety.
[2022-06-01 12:34] LABS: CALCIUM, SERUM 9.3 mg/dL (8.5-10.1); CREATININE 1.2 mg/dL (0.6-1.3); POTASSIUM 4.2 mmol/L (3.5-5.1)
--- NOTE | 2022-06-01 12:34 | NUR ---
Alannah Lake NP made aware of the chest x ray result and added a procalcitonin level on the BMP.
--- NOTE | 2022-06-01 14:38 | NUR ---
Aleksandra LEMON made aware of BMP and Procalcitonin results and no new order.
[2022-06-01 16:00] VITALS: BP 117/70
--- NOTE | 2022-06-01 19:00 | NUR ---
RN notes Received Pt from morning nurse. Pt is resting in bed comfortably. Pt is alert and orientedX2-3, calm, quiet and cooperative with care. On room air. No SOB. No S/S of distress noted. VS is stable. Snacks is offered and provided. Pt is able to ambulates with a steady gait. Pt denies SI/Hi at this time. Reality orientation provided. Snacks and juice are given and provided. Safety precautions is maintained. Will continue to monitor Q 15 mins checks for safety and behavior.
[2022-06-01 20:00] VITALS: BP 106/53
[2022-06-01] MEDS: LORAZEPAM 1 MG TABLET PO PRN (20:38)
--- NOTE | 2022-06-01 20:39 | NUR ---
RN notes Pt is feeling and anxious and requesting ativan. administered ativan as ordered. safety precautions is maintained. will continue to monitor.
[2022-06-01] MEDS: ATORVASTATIN 10 MG TABLET PO SCH (21:02)
[2022-06-01] MEDS: FLUVOXAMINE MALEATE 50 MG TABLET PO SCH (21:02)
[2022-06-02 08:00] VITALS: BP 132/75
[2022-06-02] MEDS: GABAPENTIN 100 MG CAPSULE PO SCH ×2 (08:12→12:42)
[2022-06-02] MEDS: LORATADINE 10 MG TABLET PO SCH (08:12)
[2022-06-02] MEDS: ASPIRIN EC 81 MG TABLET.DR PO SCH (08:12)
[2022-06-02] MEDS: ASCORBIC ACID 500 MG TABLET PO SCH (08:12)
[2022-06-02] MEDS: DOCUSATE SODIUM 100 MG CAPSULE PO SCH ×2 (08:12→16:24)
[2022-06-02] MEDS: OLANZAPINE 10 MG TABLET PO SCH ×2 (08:12→21:36)
[2022-06-02] MEDS: GEMFIBROZIL 600 MG TABLET PO SCH ×2 (08:12→16:24)
[2022-06-02] MEDS: AMLODIPINE BESYLATE 5 MG TABLET PO SCH (08:13)
[2022-06-02] MEDS: PANTOPRAZOLE 40 MG TABLET.DR PO SCH (08:13)
[2022-06-02] MEDS: GUAIFENESIN/D-METHORPHAN HB 5 ML UDC PO PRN ×2 (08:13→16:23)
[2022-06-02] MEDS ORDERED: OLANZAPINE 10 MG TABLET PO SCH ×2 (11:30)
[2022-06-02 16:00] VITALS: BP 119/70
[2022-06-02] MEDS: GABAPENTIN 300 MG CAPSULE PO SCH (16:23)
--- NOTE | 2022-06-02 19:45 | NUR ---
COOLER TENDER NOTES:RECEIVED PATIENT ASLEEP COMFORTABLY IN BED .ALERT AND ORIENTED X2-3.BREATHING EVEN AND NON-LABORED.NO ACUTE DISTRESS NOTED.ABLE TO VERBALIZED NEEDS.PATIENT IS CALM,QUIET AND COOPERATIVE WITH CARE.PATIENT IS AMBULATE WITH STEADY GAIT.DENIES SI/HI AT THIS TIME.SAFETY PRECAUTION IS MAINTAINED.WILL CONTINUE TO MONITOR Q15 MINS FOR SAFETY AND BEHAVIOR.
[2022-06-02 20:00] VITALS: BP 106/58
[2022-06-02] MEDS: ATORVASTATIN 10 MG TABLET PO SCH (21:33)
[2022-06-02] MEDS: FLUVOXAMINE MALEATE 50 MG TABLET PO SCH (21:33)
[2022-06-03] MEDS: PANTOPRAZOLE 40 MG TABLET.DR PO SCH (07:51)
[2022-06-03 08:00] VITALS: BP 122/67
[2022-06-03] MEDS: GEMFIBROZIL 600 MG TABLET PO SCH ×2 (08:25→16:46)
[2022-06-03] MEDS: ASPIRIN EC 81 MG TABLET.DR PO SCH (08:25)
[2022-06-03] MEDS: GABAPENTIN 300 MG CAPSULE PO SCH ×3 (08:25→16:45)
[2022-06-03] MEDS: LORATADINE 10 MG TABLET PO SCH (08:25)
[2022-06-03] MEDS: ASCORBIC ACID 500 MG TABLET PO SCH (08:25)
[2022-06-03] MEDS: DOCUSATE SODIUM 100 MG CAPSULE PO SCH ×2 (08:25→16:45)
[2022-06-03] MEDS: AMLODIPINE BESYLATE 5 MG TABLET PO SCH (08:26)
[2022-06-03] MEDS: OLANZAPINE 10 MG TABLET PO SCH ×2 (08:36→21:02)
[2022-06-03] MEDS: GUAIFENESIN/D-METHORPHAN HB 5 ML UDC PO PRN ×3 (09:44→21:43)
--- NOTE | 2022-06-03 10:00 | NUR ---
RN-CO: ROBITUSSIN SYRUP GIVEN FOR C/O COUGH.
[2022-06-03] MEDS: LORAZEPAM 1 MG TABLET PO PRN (10:49)
--- NOTE | 2022-06-03 10:54 | NUR ---
RN-CO: ATIVAN PO G 1 MG PO C/O ANXIETY.
--- NOTE | 2022-06-03 14:09 | NUR ---
RN-CO: Notified Dr Lake that patient c/o coughing and mild congestion. Also made her aware of patient's cxr last 06/17. Awaiting for her response.
[2022-06-03 16:00] VITALS: BP 136/92
--- NOTE | 2022-06-03 17:14 | NUR ---
RN-CO: GUAFENESIN 5 ML GIVEN FOR C/O COUGH.
[2022-06-03 20:31] VITALS: BP 100/57
[2022-06-03] MEDS: ATORVASTATIN 10 MG TABLET PO SCH (21:01)
[2022-06-03] MEDS: FLUVOXAMINE MALEATE 50 MG TABLET PO SCH (21:02)
[2022-06-03] MEDS: AZITHROMYCIN 250 MG TABLET PO SCH (22:27)
--- NOTE | 2022-06-03 23:05 | NUR ---
RN note: Notified UNDERWRITER Sana Vallejo the results of patient's chest and gave an order of Azithromycin 500 mg PO x 5 days.First dose given .
[2022-06-04 08:00] VITALS: BP 130/65
[2022-06-04] MEDS: OLANZAPINE 10 MG TABLET PO SCH ×2 (08:18→21:02)
[2022-06-04] MEDS: GABAPENTIN 300 MG CAPSULE PO SCH ×3 (08:18→17:11)
[2022-06-04] MEDS: DOCUSATE SODIUM 100 MG CAPSULE PO SCH ×2 (08:18→17:11)
[2022-06-04] MEDS: LORATADINE 10 MG TABLET PO SCH (08:19)
[2022-06-04] MEDS: PANTOPRAZOLE 40 MG TABLET.DR PO SCH (08:19)
[2022-06-04] MEDS: ASPIRIN EC 81 MG TABLET.DR PO SCH (08:19)
[2022-06-04] MEDS: AZITHROMYCIN 250 MG TABLET PO SCH (08:19)
[2022-06-04] MEDS: AMLODIPINE BESYLATE 5 MG TABLET PO SCH (08:19)
[2022-06-04] MEDS: ASCORBIC ACID 500 MG TABLET PO SCH (08:19)
[2022-06-04] MEDS: GEMFIBROZIL 600 MG TABLET PO SCH ×2 (08:20→17:11)
[2022-06-04] MEDS: TRIHEXYPHENIDYL HCL 2 MG TABLET PO SCH (08:23)
--- NOTE | 2022-06-04 12:06 | NUR ---
Court Hearing: Patient's court hearing for 2690 was today and it was upheld for GD.
--- NOTE | 2022-06-04 12:06 | NUR ---
Court Notification: Pt has no supportive contact of [id number] hearing.
[2022-06-04 16:00] VITALS: BP 136/85
[2022-06-04 20:02] VITALS: BP 120/66
[2022-06-04] MEDS: FLUVOXAMINE MALEATE 50 MG TABLET PO SCH (21:01)
[2022-06-04] MEDS: ATORVASTATIN 10 MG TABLET PO SCH (21:02)
[2022-06-05 08:00] VITALS: BP 110/70
[2022-06-05] MEDS: LORATADINE 10 MG TABLET PO SCH (08:45)
[2022-06-05] MEDS: OLANZAPINE 10 MG TABLET PO SCH ×2 (08:45→21:04)
[2022-06-05] MEDS: AZITHROMYCIN 250 MG TABLET PO SCH (08:45)
[2022-06-05] MEDS: ASPIRIN EC 81 MG TABLET.DR PO SCH (08:45)
[2022-06-05] MEDS: ASCORBIC ACID 500 MG TABLET PO SCH (08:45)
[2022-06-05] MEDS: PANTOPRAZOLE 40 MG TABLET.DR PO SCH (08:45)
[2022-06-05] MEDS: GABAPENTIN 300 MG CAPSULE PO SCH ×3 (08:46→16:12)
[2022-06-05] MEDS: DOCUSATE SODIUM 100 MG CAPSULE PO SCH ×2 (08:46→16:11)
[2022-06-05] MEDS: GEMFIBROZIL 600 MG TABLET PO SCH ×2 (08:46→16:12)
[2022-06-05] MEDS: TRIHEXYPHENIDYL HCL 2 MG TABLET PO SCH (08:46)
[2022-06-05] MEDS: AMLODIPINE BESYLATE 5 MG TABLET PO SCH (08:47)
[2022-06-05] MEDS: GUAIFENESIN/D-METHORPHAN HB 5 ML UDC PO PRN ×2 (09:22→16:29)
--- NOTE | 2022-06-05 09:25 | NUR ---
RN NOTE- PT COMPLAINED OF COUGH. ROBITUSSIN SYRUP 5ML GIVEN TO PATIENT.
[2022-06-05] MEDS: LORAZEPAM 1 MG TABLET PO PRN ×2 (10:54→23:51)
--- NOTE | 2022-06-05 10:57 | NUR ---
RN NOTE- PT IS ANXIOUS AND AGITATED. ATIVAN 1 MG PO GIVEN TO PATIENT
[2022-06-05] MEDS: IBUPROFEN 600 MG TABLET PO PRN (14:40)
--- NOTE | 2022-06-05 14:41 | NUR ---
RN NOTE PT COMPLAINED OF HAVING PAIN IN HIS RIGHT SIDE OF HIS BODY. IBUPROFEN 600MG PRN GIVEN.
[2022-06-05 16:00] VITALS: BP 121/84
--- NOTE | 2022-06-05 16:29 | NUR ---
RN NOTE- PT COMPLAINED OF COUGH. ROBITUSSIN SYRUP 5ML GIVEN TO PATIENT.
[2022-06-05 20:19] VITALS: BP 99/63
[2022-06-05] MEDS: FLUVOXAMINE MALEATE 50 MG TABLET PO SCH (21:04)
[2022-06-05] MEDS: ATORVASTATIN 10 MG TABLET PO SCH (21:04)
[2022-06-06] MEDS: IBUPROFEN 600 MG TABLET PO PRN ×2 (01:02→19:47)
--- NOTE | 2022-06-06 01:02 | NUR ---
RN note: Patient complaint of right foot pain,requested and given Ibuprofen 600 mg PO as ordered.
[2022-06-06] MEDS: ZOLPIDEM TARTRATE 5 MG TABLET PO PRN (01:29)
--- NOTE | 2022-06-06 01:29 | NUR ---
RN note: Patient c/o difficulty falling asleep;requested and given Ambien 5 mg PO as ordered.
[2022-06-06 08:00] VITALS: BP 132/64
[2022-06-06] MEDS: PANTOPRAZOLE 40 MG TABLET.DR PO SCH (08:30)
[2022-06-06] MEDS: AZITHROMYCIN 250 MG TABLET PO SCH (08:35)
[2022-06-06] MEDS: ASCORBIC ACID 500 MG TABLET PO SCH (08:35)
[2022-06-06] MEDS: GEMFIBROZIL 600 MG TABLET PO SCH ×2 (08:35→16:08)
[2022-06-06] MEDS: TRIHEXYPHENIDYL HCL 2 MG TABLET PO SCH (08:35)
[2022-06-06] MEDS: OLANZAPINE 10 MG TABLET PO SCH ×3 (08:35→21:31)
[2022-06-06] MEDS: DOCUSATE SODIUM 100 MG CAPSULE PO SCH ×2 (08:35→16:08)
[2022-06-06] MEDS: ASPIRIN EC 81 MG TABLET.DR PO SCH (08:36)
[2022-06-06] MEDS: AMLODIPINE BESYLATE 5 MG TABLET PO SCH (08:36)
[2022-06-06] MEDS: GABAPENTIN 300 MG CAPSULE PO SCH ×3 (08:36→16:08)
[2022-06-06] MEDS: LORATADINE 10 MG TABLET PO SCH (08:37)
[2022-06-06] MEDS: GUAIFENESIN/D-METHORPHAN HB 5 ML UDC PO PRN (09:32)
[2022-06-06] MEDS: LORAZEPAM 1 MG TABLET PO PRN (14:44)
--- NOTE | 2022-06-06 14:44 | NUR ---
RN-CO: ATIVAN 1 MG PO GIVEN FOR C/O ANXIETY.
[2022-06-06 16:00] VITALS: BP 133/75
[2022-06-06 20:17] VITALS: BP 124/62
[2022-06-06] MEDS: FLUVOXAMINE MALEATE 50 MG TABLET PO SCH (21:30)
[2022-06-06] MEDS: ATORVASTATIN 10 MG TABLET PO SCH (21:31)
[2022-06-07] MEDS: ZOLPIDEM TARTRATE 5 MG TABLET PO PRN (01:12)
[2022-06-07] MEDS: IBUPROFEN 600 MG TABLET PO PRN (02:57)
[2022-06-07 07:13] LABS: POTASSIUM 3.9 mmol/L (3.5-5.1)
[2022-06-07 08:00] VITALS: BP 126/70
[2022-06-07] MEDS: PANTOPRAZOLE 40 MG TABLET.DR PO SCH (08:47)
[2022-06-07] MEDS: LORATADINE 10 MG TABLET PO SCH (08:52)
[2022-06-07] MEDS: TRIHEXYPHENIDYL HCL 2 MG TABLET PO SCH (08:52)
[2022-06-07] MEDS: ASPIRIN EC 81 MG TABLET.DR PO SCH (08:52)
[2022-06-07] MEDS: GEMFIBROZIL 600 MG TABLET PO SCH ×2 (08:52→16:56)
[2022-06-07] MEDS: GABAPENTIN 300 MG CAPSULE PO SCH ×3 (08:52→16:57)
[2022-06-07] MEDS: ASCORBIC ACID 500 MG TABLET PO SCH (08:52)
[2022-06-07] MEDS: DOCUSATE SODIUM 100 MG CAPSULE PO SCH ×2 (08:52→16:56)
[2022-06-07] MEDS: AZITHROMYCIN 250 MG TABLET PO SCH (08:52)
[2022-06-07] MEDS: AMLODIPINE BESYLATE 5 MG TABLET PO SCH (08:53)
[2022-06-07] MEDS: OLANZAPINE 5 MG TABLET PO SCH (09:28)
[2022-06-07] MEDS: GUAIFENESIN/D-METHORPHAN HB 5 ML UDC PO PRN ×3 (09:28→21:13)
[2022-06-07] MEDS: LORAZEPAM 1 MG TABLET PO PRN (14:58)
--- NOTE | 2022-06-07 14:59 | NUR ---
RN-NOTES PATIENT REQUESTING ATIVAN FOR HIS ANXIETY. ATIVAN 1MG P.O GIVEN PRN ORDER. WILL CONT. MONITORING FOR SAFETY AND BEHAVIOR.
--- NOTE | 2022-06-07 15:50 | NUR ---
RN-NOTES PATIENT IN THE ROOM AWAKE,A/O X3 CALM,NO ACUTE DISTRESS NOTED.
[2022-06-07 16:00] VITALS: BP 135/83
--- NOTE | 2022-06-07 18:52 | NUR ---
RN-NOTES PATIENT VISIBLE IN THE UNIT A/OX3,NO ACUTE DISTRESS NOTED. COMPLIANT WITH MEDICATIONS. AMBULATORY WITH WALKER. ABLE TO MAKE NEEDS KNOWN TO THE STAFF.ALL NEEDS ATTENDED AND ANTICIPATED. WILL CONT. MONITORING FOR SAFETY AND BEHAVIOR.WILL ENDORSE TO INCOMING NURSE FOR THE CONTINUITY OF CARE.
[2022-06-07 20:33] VITALS: BP 102/51
[2022-06-07] MEDS: ATORVASTATIN 10 MG TABLET PO SCH (21:13)
[2022-06-07] MEDS: OLANZAPINE 10 MG TABLET PO SCH (21:13)
[2022-06-07] MEDS: FLUVOXAMINE MALEATE 50 MG TABLET PO SCH (21:13)
[2022-06-07] MEDS: QUETIAPINE FUMARATE 25 MG TABLET PO SCH (21:13)
--- NOTE | 2022-06-07 21:15 | NUR ---
RIVER TRANSPORTATION WORKER NOTES: GIVEN ROBITUSSIN 5MG FOR COUGH PER PATIENTS REQUEST.
[2022-06-07] MEDS ORDERED: FLUVOXAMINE MALEATE 50 MG TABLET PO SCH (22:00)
[2022-06-08] MEDS: IBUPROFEN 600 MG TABLET PO PRN (00:49)
--- NOTE | 2022-06-08 00:50 | NUR ---
GEOSCIENCES ASSOCIATE PROFESSOR NOTES: PER PATIENTS REQUEST GIVEN MOTRIN 600 MG PO FOR BLE PAIN 10/04. PATIENT CALM. NO SOB NOTED. WILL CONTINUE TO MONITOR FOR SAFETY AND BEHAVIOR.
--- NOTE | 2022-06-08 02:00 | NUR ---
CURAM DEVELOPER NOTES: MOTRIN EFFECTIVE. PATIENT PAIN 0/10.
--- NOTE | 2022-06-08 06:46 | NUR ---
CLOTH TESTER NOTES: PATIENT SLEEPING AT THIS TIME. EASILY AROUSABLE. CALM. BREATHING EVEN AND UNLABORED. NO ACUTE DISTRESS NOTED. NO C/O PAIN AT THIS TIME. A/OX4. COOPERATIVE. MEDICATION COMPLIANT. AMBULATORY WITH ASSISTANCE OF WALKER. ALL NEEDS ANTICIPATED AND ATTENDED. WILL ENDORSE TO ONCOMING SHIFT FOR CONTINUITY OF CARE.
[2022-06-08 08:00] VITALS: BP 135/82
[2022-06-08] MEDS: PANTOPRAZOLE 40 MG TABLET.DR PO SCH (08:00)
[2022-06-08] MEDS: OLANZAPINE 5 MG TABLET PO SCH (09:29)
[2022-06-08] MEDS: GABAPENTIN 300 MG CAPSULE PO SCH ×3 (09:29→16:10)
[2022-06-08] MEDS: GEMFIBROZIL 600 MG TABLET PO SCH ×2 (09:29→16:10)
[2022-06-08] MEDS: LORATADINE 10 MG TABLET PO SCH (09:30)
[2022-06-08] MEDS: ASPIRIN EC 81 MG TABLET.DR PO SCH (09:30)
[2022-06-08] MEDS: ASCORBIC ACID 500 MG TABLET PO SCH (09:30)
[2022-06-08] MEDS: AMLODIPINE BESYLATE 5 MG TABLET PO SCH (09:30)
[2022-06-08] MEDS: TRIHEXYPHENIDYL HCL 2 MG TABLET PO SCH (09:30)
[2022-06-08] MEDS: DOCUSATE SODIUM 100 MG CAPSULE PO SCH ×2 (09:31→16:10)
[2022-06-08] MEDS: GUAIFENESIN/D-METHORPHAN HB 5 ML UDC PO PRN (10:09)
[2022-06-08 16:00] VITALS: BP 122/75
[2022-06-08] MEDS: LORAZEPAM 1 MG TABLET PO PRN (16:30)
--- NOTE | 2022-06-08 16:31 | NUR ---
RN-NOTES PATIENT REQUESTING ATIVAN FOR HIS ANXIETY. ATIVAN 1MG P.O GIVEN PRN ORDER. WILL CONT. MONITORING FOR SAFETY AND BEHAVIOR.
--- NOTE | 2022-06-08 17:10 | NUR ---
RN-NOTES PATIENT VISIBLE IN THE UNIT A/OX3,CALM,NO ACUTE DISTRESS NOTED. COMPLIANT WITH MEDICATIONS. AMBULATORY WITH WALKER. ABLE TO MAKE NEEDS KNOWN TO THE STAFF.PATIENT PARTICIPATES WITH THE GROUP AND INTERACT WITH SELECTED PEERS .ALL NEEDS ATTENDED AND ANTICIPATED. WILL CONT. MONITORING FOR SAFETY AND BEHAVIOR.WILL ENDORSE TO INCOMING NURSE FOR THE CONTINUITY OF CARE.
--- NOTE | 2022-06-08 19:30 | NUR ---
GPS RN NOTE, RECEIVED PATIENT AWAKE AND IN BED, NO S/S OR COMPLAINTS OF PAIN AT THIS TIME. PATIENT IS DISPLAYING NO S/S OF APPARENT DISTRESS AT THIS TIME. PATIENT BREATHING IS UNLABORED WITH EQUAL RISE AND FALL OF THE CHEST. PATIENT IS ALERT AND ORIENTED X 2-3 ON ROOM AIR WITH A SPO2 96%. PATIENT IS COMPLIANT WITH MEDICATIONS, NEEDY, PARANOID, ANXIOUS AT TIMES, MAKES NEEDS KNOWN, AND COOPERATIVE. PATIENT DENIES SUICIDAL AND HOMICIDAL IDEATIONS AT THIS TIME. PATIENT ASSISTED WITH TURNING AND REPOSITIONING Q2HR AND PRN FOR COMFORT AND CIRCULATION. PATIENT HAS NO NEEDS AT THIS TIME. PATIENT EDUCATED ON THE USE OF THE CALL MCCLELLAN. PATIENT BED SIDE RAILS UP X 2 FOR SAFETY. PATIENT BED IS LOCKED, LOW, WITH BED ALARM ON. WILL CONTINUE TO MONITOR THIS PATIENT Q15 MINUTES WITH THE HELP OF STAFF TO MAINTAIN SAFETY.
[2022-06-08 20:00] VITALS: BP 123/66
[2022-06-08] MEDS: FLUVOXAMINE MALEATE 50 MG TABLET PO SCH (21:41)
[2022-06-08] MEDS: QUETIAPINE FUMARATE 25 MG TABLET PO SCH (21:41)
[2022-06-08] MEDS: ATORVASTATIN 10 MG TABLET PO SCH (21:41)
[2022-06-08] MEDS: OLANZAPINE 10 MG TABLET PO SCH (21:41)
[2022-06-09] MEDS: ZOLPIDEM TARTRATE 5 MG TABLET PO PRN ×2 (00:31→21:34)
--- NOTE | 2022-06-09 00:31 | NUR ---
GPS RN NOTE, PATIENT HAS A COMPLAINT OF NOT BEING ABLE TO SLEEP AND IS REQUESTING AMBIEN AT THIS TIME. PATIENT VITAL SIGNS ARE STABLE. GAVE AMBIEN 5MG PO HS PRN ORDERED. WILL REASSESS FOR INSOMNIA AND I WILL CONTINUE TO MONITOR THIS PATIENT WITH THE HELP OF STAFF.
[2022-06-09] MEDS: LORAZEPAM 1 MG TABLET PO PRN ×2 (03:11→12:33)
--- NOTE | 2022-06-09 03:11 | NUR ---
GPS RN NOTE, PATIENT HAS A COMPLAINT OF FEELING ANXIOUS AND IS REQUESTING ATIVAN AT THIS TIME. PATIENT VITAL SIGNS ARE STABLE. GAVE ATIVAN 1MG PO Q6HR PRN ORDERED. WILL REASSESS FOR ANXIETY AND I WILL CONTINUE TO MONITOR THIS PATIENT WITH THE HELP OF STAFF.
[2022-06-09 08:00] VITALS: BP 139/92
[2022-06-09] MEDS: GABAPENTIN 300 MG CAPSULE PO SCH ×3 (08:13→16:33)
[2022-06-09] MEDS: OLANZAPINE 5 MG TABLET PO SCH (08:13)
[2022-06-09] MEDS: DOCUSATE SODIUM 100 MG CAPSULE PO SCH ×2 (08:13→16:33)
[2022-06-09] MEDS: GEMFIBROZIL 600 MG TABLET PO SCH ×2 (08:13→16:33)
[2022-06-09] MEDS: ASPIRIN EC 81 MG TABLET.DR PO SCH (08:13)
[2022-06-09] MEDS: LORATADINE 10 MG TABLET PO SCH (08:13)
[2022-06-09] MEDS: ASCORBIC ACID 500 MG TABLET PO SCH (08:13)
[2022-06-09] MEDS: TRIHEXYPHENIDYL HCL 2 MG TABLET PO SCH (08:13)
[2022-06-09] MEDS: PANTOPRAZOLE 40 MG TABLET.DR PO SCH (08:13)
[2022-06-09] MEDS: AMLODIPINE BESYLATE 5 MG TABLET PO SCH (08:14)
[2022-06-09] MEDS: GUAIFENESIN/D-METHORPHAN HB 5 ML UDC PO PRN (09:05)
--- NOTE | 2022-06-09 09:30 | NUR ---
RN Notes: Received pt. asleep in bed, breathing is even and unlabored. Ate 100% for breakfast and compliant on meds and prn for cough given. Encouraged to verbalize feelings and motivated to attend group activity. Pt. is needy and needs attended and will continue to monitor for safety.
[2022-06-09 16:29] VITALS: BP 141/90
--- NOTE | 2022-06-09 20:02 | NUR ---
GPS RN NOTE, RECEIVED PATIENT AWAKE AND IN BED, NO S/S OR COMPLAINTS OF PAIN AT THIS TIME. PATIENT IS DISPLAYING NO S/S OF APPARENT DISTRESS AT THIS TIME. PATIENT BREATHING IS UNLABORED WITH EQUAL RISE AND FALL OF THE CHEST. PATIENT IS ALERT AND ORIENTED X 2-3 ON ROOM AIR WITH A SPO2 95%. PATIENT IS COMPLIANT WITH MEDICATIONS, NEEDY, PARANOID, ANXIOUS AT TIMES, MAKES NEEDS KNOWN, AND COOPERATIVE. PATIENT DENIES SUICIDAL AND HOMICIDAL IDEATIONS AT THIS TIME. PATIENT ASSISTED WITH TURNING AND REPOSITIONING Q2HR AND PRN FOR COMFORT AND CIRCULATION. PATIENT HAS NO NEEDS AT THIS TIME. PATIENT EDUCATED ON THE USE OF THE CALL MCCLELLAN. PATIENT BED SIDE RAILS UP X 2 FOR SAFETY. PATIENT BED IS LOCKED, LOW, WITH BED ALARM ON. WILL CONTINUE TO MONITOR THIS PATIENT Q15 MINUTES WITH THE HELP OF STAFF TO MAINTAIN SAFETY.
[2022-06-09 20:58] VITALS: BP 141/82
[2022-06-09] MEDS: ATORVASTATIN 10 MG TABLET PO SCH (21:33)
[2022-06-09] MEDS: FLUVOXAMINE MALEATE 50 MG TABLET PO SCH (21:33)
[2022-06-09] MEDS: QUETIAPINE FUMARATE 25 MG TABLET PO SCH (21:34)
[2022-06-09] MEDS: OLANZAPINE 10 MG TABLET PO SCH (21:35)
[2022-06-10] MEDS: LORAZEPAM 1 MG TABLET PO PRN ×3 (04:07→23:44)
[2022-06-10 08:00] VITALS: BP 125/90
[2022-06-10] MEDS: PANTOPRAZOLE 40 MG TABLET.DR PO SCH (08:01)
[2022-06-10] MEDS: TRIHEXYPHENIDYL HCL 2 MG TABLET PO SCH (08:09)
[2022-06-10] MEDS: DOCUSATE SODIUM 100 MG CAPSULE PO SCH ×2 (08:09→16:07)
[2022-06-10] MEDS: GABAPENTIN 300 MG CAPSULE PO SCH ×3 (08:09→16:06)
[2022-06-10] MEDS: LORATADINE 10 MG TABLET PO SCH (08:09)
[2022-06-10] MEDS: ASCORBIC ACID 500 MG TABLET PO SCH (08:09)
[2022-06-10] MEDS: GEMFIBROZIL 600 MG TABLET PO SCH ×2 (08:10→16:06)
[2022-06-10] MEDS: ASPIRIN EC 81 MG TABLET.DR PO SCH (08:10)
[2022-06-10] MEDS: AMLODIPINE BESYLATE 5 MG TABLET PO SCH (08:11)
[2022-06-10] MEDS: OLANZAPINE 2.5 MG TABLET PO SCH ×2 (08:12→16:07)
[2022-06-10] MEDS: CALCIUM CARBONATE 500 MG TAB.CHEW PO PRN (09:21)
--- NOTE | 2022-06-10 09:22 | NUR ---
RN-CO: TUMS GIVEN FOR HYPERACIDITY.
[2022-06-10 16:00] VITALS: BP 106/69
[2022-06-10] MEDS: GUAIFENESIN/D-METHORPHAN HB 5 ML UDC PO PRN ×2 (16:36→22:31)
[2022-06-10 20:33] VITALS: BP 137/82
[2022-06-10] MEDS: FLUVOXAMINE MALEATE 50 MG TABLET PO SCH (21:23)
[2022-06-10] MEDS: QUETIAPINE FUMARATE 25 MG TABLET PO SCH (21:23)
[2022-06-10] MEDS: ATORVASTATIN 10 MG TABLET PO SCH (21:23)
[2022-06-10] MEDS: ZOLPIDEM TARTRATE 5 MG TABLET PO PRN (21:30)
[2022-06-10] MEDS ORDERED: OLANZAPINE 5 MG TABLET PO SCH (22:00)
[2022-06-11] MEDS: IBUPROFEN 600 MG TABLET PO PRN (00:33)
[2022-06-11] MEDS: GUAIFENESIN/D-METHORPHAN HB 5 ML UDC PO PRN (05:50)
[2022-06-11] MEDS: PANTOPRAZOLE 40 MG TABLET.DR PO SCH (07:49)
--- NOTE | 2022-06-11 07:57 | NUR ---
RN-CO: DR BROWN SEEN AND EXAMINED THE PT WITH ORDERS TO DISCONTINUE HOLD AND DISCHARGE PT TO [facility] TODAY, NOTED.
[2022-06-11 08:00] VITALS: BP 134/73
--- NOTE | 2022-06-11 08:05 | NUR ---
SW Discharge Note: [facility] to [facility] [address] [place] [address]; ([phone]). Please arrange ambulance transportation. Drug Room Operator spoke with Priscila, Newspaper Deliverer at [facility] ([phone]) who stated patient will be accepted at facility today. Patient is alert and oriented x3 and not able to plan for care. Patient denies any suicidal or homicidal ideations. Patient is aware and agreeable with discharge plans. Patient does not have any family members at this time. Patient will continue to follow-up with (psychiatrist) Dr. Ortiz located [address] [facility] [address], [place] [address]; ([phone]) and (water pumper) Dr. Rock [address] [facility] [address] [address]; ([phone]). Patient presents with euthymic mood and congruent affect.
[2022-06-11] MEDS: TRIHEXYPHENIDYL HCL 2 MG TABLET PO SCH (09:21)
[2022-06-11] MEDS: OLANZAPINE 2.5 MG TABLET PO SCH (09:21)
[2022-06-11] MEDS: GABAPENTIN 300 MG CAPSULE PO SCH ×2 (09:21→12:58)
[2022-06-11] MEDS: GEMFIBROZIL 600 MG TABLET PO SCH (09:21)
[2022-06-11] MEDS: LORATADINE 10 MG TABLET PO SCH (09:21)
[2022-06-11 09:22] VITALS: BP 134/73
[2022-06-11] MEDS: ASCORBIC ACID 500 MG TABLET PO SCH (09:22)
[2022-06-11] MEDS: AMLODIPINE BESYLATE 5 MG TABLET PO SCH (09:22)
[2022-06-11] MEDS: DOCUSATE SODIUM 100 MG CAPSULE PO SCH (09:22)
[2022-06-11] MEDS: ASPIRIN EC 81 MG TABLET.DR PO SCH (09:22)
[2022-06-11] MEDS: LORAZEPAM 1 MG TABLET PO PRN (11:04)
--- NOTE | 2022-06-11 11:22 | NUR ---
pt complaining of anxiety 1 mg ativan was given.
--- NOTE | 2022-06-11 13:30 | NUR ---
NURSE NOTE: 66 YEAR OLD MALE DISCHARGED TO [facility] IN STABLE CONDITION. COMPLIANT WITH MEDS, COOPERATIVE WITH TREATMENT PLANS, PT DENIES SI/HI AND INSTRUCTED TO GO TO THE CLOSEST ER IF DEVELOPING SI/HI. BEHAVIOR IMPROVED, PSYCHIATRIC TX PLANS MET, MEDICAL TX PLANS DEFERRED FOR CONTINUAL MONITORING. DR BROWN DISCONTINUED HOLD. BOTH DR BROWN AND DR MURRIETA DISCHARGED PT. EDUCATED PT ABOUT AFTER CARE PLAN AND COPY PROVIDED. RETURNED PERSONAL BELONGINGS TO PT. MEDICATION RECONCILED WITH DR BROWN AND DR MURRIETA. REPORT GIVEN TO KEMI KNIGHT AT [facility] FOR CONTINUITY OF CARE. PT SIGNED THE DISCHARGE PAPERWORK. PT LEFT THE UNIT AT 1330 VIA AMBULANCE.
== END 2022-06-11 13:30 | DRG 885 ==
LOC: ER 11:52 → GPS 14:52
PROVIDERS: ADMIT Psychiatry & Neurology Psychiatry; ATTEND Nurse Practitioner Acute Care
DX: F20.0 Paranoid schizophrenia (principal); R45.851 Suicidal ideations; F32.9 Major depressive disorder, single episode, unspecified; N40.0 Benign prostatic hyperplasia without lower urinary tract symptoms; F42.9 Obsessive-compulsive disorder, unspecified; F41.9 Anxiety disorder, unspecified; I10 Essential (primary) hypertension; E78.5 Hyperlipidemia, unspecified; G62.9 Polyneuropathy, unspecified; Z20.822 Contact with and (suspected) exposure to COVID-19; G20 Parkinson's disease
CPT/HCPCS: 36415; 71045-TC; 80048-TC; 80076-TC; 84132-TC; 84295-TC; 85025-TC; 87081-TC; C9803; G0480

== ENCOUNTER 2022-09-28 12:37 | Emergency (ER) | payer MEDICARE, OTHER ==
[~2022-09-28] VITALS: Ht 177.8 cm; Wt 84.4 kg
[~2022-09-28 12:37] MED LIST changes: -BUPR-54 PO; -BUSP15TA3 PO; +CALC500T13 PO; -CLON0.5T4 PO; -FLUV100T3 PO; +GUAI100S11 PO; -GUAI5LIQ10 PO; -RISP0.2515 PO; -TEMA7.5C PO; -TRIH2TAB3 PO; +ZOLP5TAB8 PO
[2022-09-28 12:52] VITALS: TEMP 98.4
[2022-09-28 13:33] LABS: BASOPHILS # (AUTO) 0.1 K/uL (0.0-0.2); BASOPHILS % (AUTO) 0.8 % (0.0-2.0); EOSINOPHILS # (AUTO) 0.5 K/uL (0.0-0.7); EOSINOPHILS % (AUTO) 6.9 % (0.0-6.0); HEMATOCRIT 45 % (39-51); HEMOGLOBIN 14.7 g/dL (13.5-17.5); LYMPHOCYTES # (AUTO) 1.7 K/uL (0.8-4.8); LYMPHOCYTES % (AUTO) 23.7 % (20.0-44.0); MEAN CORPUSCULAR HEMOGLOBIN 30 PG (26.0-33.0); MEAN CORPUSCULAR HGB CONC 33 g/dl (31.0-36.0); MEAN CORPUSCULAR VOLUME 91 fL (80-96); MONOCYTES # (AUTO) 0.6 K/uL (0.1-1.30); MONOCYTES % (AUTO) 8.1 % (2.0-12.0); NEUTROPHILS # (AUTO) 4.2 K/uL (1.8-8.9); NEUTROPHILS % (AUTO) 60.5 % (43.0-81.0); PLATELET COUNT (AUTO) 235 K/uL (150-450); RED BLOOD CELL COUNT(AUTO) 4.96 MIL/uL (4.5-6.0); RED CELL DISTRIBUTION WIDTH 15.6 % (11.5-15.0)
[2022-09-28 13:43] LABS: APPEARANCE,URINE CLEAR (CLEAR); BILIRUBIN,URINE NEGATIVE (NEGATIVE); BLOOD, URINE NEGATIVE Ery/uL (NEGATIVE); COLOR,URINE YELLOW (YELLOW); KETONES,URINE NEGATIVE (NEGATIVE); LEUKOCYTE ESTERASE ,URINE NEGATIVE (NEGATIVE); NITRITE, URINE NEGATIVE (NEGATIVE); PROTEIN,URINE NEGATIVE (NEGATIVE); UGLUCOSE NEGATIVE (NEGATIVE); UROBILINOGEN,URINE 0.2 EU/dL (0.2)
[2022-09-28 13:45] LABS: CALCIUM, SERUM 8.9 mg/dL (8.5-10.1); CARBON DIOXIDE 21 mmol/L (21-32); CHLORIDE 105 mmol/L (98-107); CREATININE 1.1 mg/dL (0.6-1.3); GLUCOSE 87 mg/dL (74-106); POTASSIUM 4.4 mmol/L (3.5-5.1); SODIUM SERUM 137 mmol/L (136-145); UREA NITROGEN, BLOOD 22 mg/dL (7-18)
[2022-09-28 13:53] LABS: ALANINE AMINOTRANSFERASE 33 U/L (12-78); ALBUMIN 3.8 g/dL (3.4-5.0); ALCOHOL, BLOOD < 3 mg/dL (0-10); ALKALINE PHOSPHATASE 108 U/L (46-116); ASPARTATE AMINOTRANSFERASE 21 U/L (15-37); BILIRUBIN,DIRECT 0.1 mg/dL (0.0-0.2); BILIRUBIN,TOTAL 0.7 mg/dL (0.2-1.0); TOTAL PROTEIN, SERUM 7.4 g/dL (6.4-8.2)
[2022-09-28 13:54] LABS: ACETAMINOPHEN <10 ug/ml (10-30); SALICYLATE < 2.3 mg/dL (2.8-20.0)
[2022-09-28 13:57] LABS: AMPHETAMINE, URINE NEGATIVE (NEGATIVE); BARBITURATE, URINE NEGATIVE (NEGATIVE); BENZODIAZEPINE, URINE NEGATIVE (NEGATIVE); CANNABINOID, URINE NEGATIVE (NEGATIVE); COCCAINE, URINE NEGATIVE (NEGATIVE); OPIATE, URINE NEGATIVE (NEGATIVE); PHENCYCLIDINE SCREEN,URINE NEGATIVE (NEGATIVE)
[2022-09-28 14:05] VITALS: BP 134/87; O2SAT 97
[2022-09-28] MEDS ORDERED: OLANZAPINE 5 MG TABLET ONE (14:18)
[2022-09-28] MEDS ORDERED: OLANZAPINE 5 MG TABLET PO ONE (14:30)
== END 2022-09-28 16:58 ==
LOC: ER 12:49
DX: R45.851 Suicidal ideations (principal); F29 Unspecified psychosis not due to a substance or known physiological condition; I10 Essential (primary) hypertension; E11.9 Type 2 diabetes mellitus without complications; Z90.89 Acquired absence of other organs; Z88.8 Allergy status to other drugs, medicaments and biological substances; Z91.013 Allergy to seafood; Z79.899 Other long term (current) drug therapy; Z20.822 Contact with and (suspected) exposure to COVID-19
CPT/HCPCS: 36415; 80048-TC; 80076-TC; 85025-TC; C9803; G0480

== ENCOUNTER 2024-06-15 10:41 | Emergency (ER) | payer MEDICARE, OTHER ==
[~2024-06-15] VITALS: Ht 180.3 cm; Wt 89.8 kg
[2024-06-15 11:18] LABS: BASOPHILS % (AUTO) 0.3 % (0.0-2.0); EOSINOPHILS % (AUTO) 0.3 % (0.0-6.0); HEMATOCRIT 46 % (39-51); HEMOGLOBIN 15.9 g/dL (13.5-17.5); LYMPHOCYTES # (AUTO) 1.1 K/uL (0.8-4.8); LYMPHOCYTES % (AUTO) 13.3 % (20.0-44.0); MEAN CORPUSCULAR HEMOGLOBIN 31 PG (26.0-33.0); MEAN CORPUSCULAR HGB CONC 34 g/dl (31.0-36.0); MEAN CORPUSCULAR VOLUME 91 fL (80-96); MONOCYTES # (AUTO) 0.5 K/uL (0.1-1.30); MONOCYTES % (AUTO) 5.4 % (2.0-12.0); NEUTROPHILS # (AUTO) 6.7 K/uL (1.8-8.9); NEUTROPHILS % (AUTO) 80.7 % (43.0-81.0); PLATELET COUNT (AUTO) 294 K/uL (150-450); RED CELL DISTRIBUTION WIDTH 13.6 % (11.5-15.0); WHITE BLOOD COUNT (AUTO) 8.3 K/uL (4.3-11.0)
[2024-06-15] MEDS ORDERED: OLANZAPINE ZYDIS 5 MG TAB.RAPDIS ONE (11:35)
[2024-06-15 11:37] LABS: ALANINE AMINOTRANSFERASE 29 U/L (12-78); ALBUMIN 3.7 g/dL (3.4-5.0); ALCOHOL, BLOOD < 3 mg/dL (0-10); ALKALINE PHOSPHATASE 97 U/L (46-116); ASPARTATE AMINOTRANSFERASE 21 U/L (15-37); BILIRUBIN,DIRECT 0.1 mg/dL (0.0-0.2); BILIRUBIN,TOTAL 0.6 mg/dL (0.2-1.0); CALCIUM, SERUM 9.4 mg/dL (8.5-10.1); CARBON DIOXIDE 26 mmol/L (21-32); CHLORIDE 105 mmol/L (98-107); CREATININE 1.2 mg/dL (0.6-1.3); GLUCOSE 107 mg/dL (74-106); SODIUM SERUM 140 mmol/L (136-145); TOTAL PROTEIN, SERUM 7.5 g/dL (6.4-8.2); UREA NITROGEN, BLOOD 13 mg/dL (7-18)
[2024-06-15] MEDS: OLANZAPINE ZYDIS 5 MG TAB.RAPDIS PO ONE (11:41)
[2024-06-15 11:47] LABS: ACETAMINOPHEN <10 ug/ml (10-30); SALICYLATE 0.6 mg/dL (2.8-20.0)
[2024-06-15 12:33] LABS: APPEARANCE,URINE CLEAR (CLEAR); BILIRUBIN,URINE NEGATIVE (NEGATIVE); BLOOD, URINE NEGATIVE Ery/uL (NEGATIVE); COLOR,URINE YELLOW (YELLOW); KETONES,URINE NEGATIVE (NEGATIVE); LEUKOCYTE ESTERASE ,URINE NEGATIVE (NEGATIVE); NITRITE, URINE NEGATIVE (NEGATIVE); PROTEIN,URINE NEGATIVE (NEGATIVE); UGLUCOSE NEGATIVE (NEGATIVE); UROBILINOGEN,URINE 0.2 EU/dL (0.2)
[2024-06-15 12:51] LABS: AMPHETAMINE, URINE NEGATIVE (NEGATIVE); BARBITURATE, URINE NEGATIVE (NEGATIVE); BENZODIAZEPINE, URINE NEGATIVE (NEGATIVE); CANNABINOID, URINE NEGATIVE (NEGATIVE); COCCAINE, URINE NEGATIVE (NEGATIVE); OPIATE, URINE NEGATIVE (NEGATIVE); PHENCYCLIDINE SCREEN,URINE NEGATIVE (NEGATIVE)
[2024-06-15 17:30] VITALS: BP 129/84; TEMP 98.3; O2SAT 98
== END 2024-06-15 18:00 ==
LOC: ER 10:51
DX: F29 Unspecified psychosis not due to a substance or known physiological condition (principal); I10 Essential (primary) hypertension; E11.9 Type 2 diabetes mellitus without complications; Z79.82 Long term (current) use of aspirin; Z79.899 Other long term (current) drug therapy; Z90.49 Acquired absence of other specified parts of digestive tract; Z90.89 Acquired absence of other organs; Z20.822 Contact with and (suspected) exposure to COVID-19
CPT/HCPCS: 36415; 70450-TC; 80048-TC; 80076-TC; 85025-TC; G0480